=== PATIENT | male | born 1930 | race Caucasian/White ===

== ENCOUNTER 2017-09-18 18:04 | Inpatient (IN) | payer OTHER ==
[~2017-09-18] VITALS: Ht 182.9 cm; Wt 73.0 kg
[~2017-09-18 18:04] MED LIST: CYAN10004 PO; LEVO100T84 PO; LISI-725 PO; LOVA40TA3 PO; METF500T PO
[2017-09-18] MEDS ORDERED: VANCOMYCIN IV 1,000 MG in SODIUM CHLORIDE 0.9% 250ML 250 ML IV STA (18:12)
[2017-09-18] MEDS ORDERED: VANCOMYCIN CONSULT ACTIVE PRN ×2 (18:15→23:00)
--- NOTE | 2017-09-18 18:18 | EMERGENCY ROOM VISIT NOTE ---
History Report prepared by Jg: Lauryn Hollingsworth Under the Supervision of: Dr. Alberto Jarrell M.D. 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 As per EMS, the patient has dementia, is being treated for a UTI, and was placed on Bactrim today. HPI limited due to the patient's dementia. 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 See HPI for pertinent positives and negatives. Past Medical & Surgical Medical Problems: (1) No significant past medical history No significant past medical history Family History Patient reports no known family medical history. Social History Smoking Status: Unknown if Ever Smoked Smokeless Tobacco Use: Unknown Marital Status: Occupation Status: retired Current/Historical Medications Scheduled Divalproex Sodium (Divalproex Sodium), 125 MG PO TID Docusate Sodium (Stool Softener), 100 MG PO BID Furosemide (Lasix), 20 MG PO DAILY Levothyroxine Sodium (Synthroid), 100 MCG PO QAM Mirtazapine (Mirtazapine), 7.5 MG PO QPM Potassium Ext Rel (Klor-Con), 10 MEQ PO DAILY Quetiapine Fumarate (Seroquel), 250 MG PO HS Sulfamethoxazole-Trimethoprim (Bactrim 400MG/80MG), 1 TAB PO BID Trazodone HCl (Trazodone HCl), 150 MG PO HS Physical Exam Vital Signs Date Time Temp Pulse Resp B/P (MAP) Pulse Ox O2 Delivery O2 Flow Rate FiO2 09/18/17 22:00 99 18 136/69 92 Room Air 09/18/17 21:05 87 18 115/73 93 Room Air 09/18/17 19:18 68 18 96 Room Air 09/18/17 19:01 68 131/60 09/18/17 18:59 68 18 09/18/17 18:54 69 22 09/18/17 18:49 69 25 09/18/17 18:44 69 25 09/18/17 18:39 70 25 09/18/17 18:34 73 25 09/18/17 18:34 71 09/18/17 18:31 118/56 09/18/17 18:17 96 Room Air 09/18/17 18:09 36.9 89 22 125/59 96 Room Air Physical Exam GENERAL: NAD HENT: Normocephalic, atraumatic. EYES: Normal conjunctiva. Sclera non-icteric. PERRL. No anisocoria. NECK: Supple. No nuchal rigidity. FROM. RESPIRATORY: CTAB, no rhonchi, wheezing, crackles CARDIAC: RRR, no MRG ABDOMEN: Soft, NTND, BS+ MSK: No chest wall TTP, no LE edema NEURO: Moves all 4s on command. 4 out 5 strength throughout b/l UE/LEs SKIN: No rash or jaundice noted. 10 by 5 cm area of erythema, fluctuance, and induration. Open central area with purulent drainage. Actively draining Medical Decision & Procedures ER Provider Diagnostic Interpretation: Radiology results as stated below per my review and radiologist interpretation: CHEST ONE VIEW PORTABLE HISTORY: 86 years-old Male Evaluate Fever/Sepsis acute fever with sepsis COMPARISON: Chest radiograph 10/27/2011 TECHNIQUE: Portable AP view of the chest FINDINGS: Patient is rotated to the right. Cardiac silhouette is enlarged. Pulmonary vascular congestion with interstitial coarsening. Moderate right hemidiaphragmatic elevation with subsegmental right basilar opacities. Trace pleural effusions with fluid tracking along the minor fissure. No pneumothorax. Degenerative changes of the shoulders and spine. Remote appearing left-sided rib fractures. IMPRESSION: 1. Cardiomegaly with mild pulmonary edema and trace bilateral pleural effusions. 2. Moderate right hemidiaphragmatic elevation with subsegmental right basilar opacities favoring atelectasis. Superimposed pneumonia would be difficult to exclude. The above report was generated using voice recognition software. It may contain grammatical, syntax or spelling errors. Electronically signed by: Talat Walker M.D. 09/18/2017 7:30 PM Laboratory Results 09/18/17 18:39 Red Blood Count 4.39, Mean Corpuscular Volume 84.5, Mean Corpuscular Hemoglobin 29.4, Mean Corpuscular Hemoglobin Concent 34.8, Mean Platelet Volume 8.2, Neutrophils (%) (Auto) 77.9, Lymphocytes (%) (Auto) 10.9, Monocytes (%) (Auto) 7.7, Eosinophils (%) (Auto) 1.6, Basophils (%) (Auto) 0.2, Neutrophils # (Auto) 12.90, Lymphocytes # (Auto) 1.80, Monocytes # (Auto) 1.28, Eosinophils # (Auto) 0.27, Basophils # (Auto) 0.03 09/18/17 18:39 Test 09/18/17 18:39 09/18/17 18:44 09/18/17 19:00 White Blood Count 16.56 K/uL (4.8-10.8) Red Blood Count 4.39 M/uL (4.7-6.1) Hemoglobin 12.9 g/dL (14.0-18.0) Hematocrit 37.1 % (42-52) Mean Corpuscular Volume 84.5 fL (80-100) Mean Corpuscular Hemoglobin 29.4 pg (25-34) Mean Corpuscular Hemoglobin Concent 34.8 g/dl (32-36) Platelet Count 315 K/uL (130-400) Mean Platelet Volume 8.2 fL (7.4-10.4) Neutrophils (%) (Auto) 77.9 % Lymphocytes (%) (Auto) 10.9 % Monocytes (%) (Auto) 7.7 % Eosinophils (%) (Auto) 1.6 % Basophils (%) (Auto) 0.2 % Neutrophils # (Auto) 12.90 K/uL (1.4-6.5) Lymphocytes # (Auto) 1.80 K/uL (1.2-3.4) Monocytes # (Auto) 1.28 K/uL (0.11-0.59) Eosinophils # (Auto) 0.27 K/uL (0-0.5) Basophils # (Auto) 0.03 K/uL (0-0.2) RDW Standard Deviation 41.0 fL (36.4-46.3) RDW Coefficient of Variation 13.2 % (11.5-14.5) Immature Granulocyte % (Auto) 1.7 % Immature Granulocyte # (Auto) 0.28 K/uL (0.00-0.02) Toxic Granulation 2+ Dohle Bodies 1+ Prothrombin Time 12.6 SECONDS (9.0-12.0) Prothromb Time International Ratio 1.2 (0.9-1.1) Activated Partial Thromboplast Time 32.6 SECONDS (21.0-31.0) Partial Thromboplastin Ratio 1.3 Anion Gap 5.0 mmol/L (3-11) Est Creatinine Clear Calc Drug Dose 76.4 ml/min Estimated GFR () 91.4 Estimated GFR (Non- 78.9 BUN/Creatinine Ratio 17.4 (10-20) Lactic Acid Level 1.4 mmol/L (0.4-2.0) Calcium Level 8.8 mg/dl (8.5-10.1) Total Bilirubin 0.4 mg/dl (0.2-1) Direct Bilirubin 0.1 mg/dl (0-0.2) Aspartate Amino Transf (AST/SGOT) 42 U/L (15-37) Alanine Aminotransferase (ALT/SGPT) 52 U/L (12-78) Alkaline Phosphatase 82 U/L (45-117) Total Protein 6.1 gm/dl (6.4-8.2) Albumin 2.4 gm/dl (3.4-5.0) Venous Blood pH 7.41 (7.36-7.41) Venous Blood Partial Pressure CO2 43 mmHg (38.0-50.0) Venous Blood Partial Pressure O2 53 mmHg Venous Blood HCO3 27 mmol/L Venous Blood Oxygen Saturation 84.9 % Venous Blood Base Excess 1.7 mEq/L Urine Color DK YELLOW Urine Appearance CLEAR (CLEAR) Urine pH 5.5 (4.5-7.5) Urine Specific [place] 1.018 (1.000-1.030) Urine Protein NEG (NEG) Urine Glucose (UA) NEG (NEG) Urine Ketones TRACE (NEG) Urine Occult Blood 2+ (NEG) Urine Nitrite NEG (NEG) Urine Bilirubin NEG (NEG) Urine Urobilinogen NEG (NEG) Urine Leukocyte Esterase NEG (NEG) Urine WBC (Auto) 1-5 /hpf (0-5) Urine RBC (Auto) 10-30 /hpf (0-4) Urine Hyaline Casts (Auto) 1-5 /lpf (0-5) Urine Epithelial Cells (Auto) >30 /lpf (0-5) Urine Bacteria (Auto) NEG (NEG) Urine Renal Epithelial Cells 0-5 /lpf (0-5) Laboratory results reviewed by me Medications Administered Medications (Trade) Dose Ordered Sig/Jannet Route Start Time Stop Time Status Last Admin Dose Admin Vancomycin HCl 1000 mg/Sodium Chloride 270 ml @ 125 mls/hr ONE STAT IV 09/18/17 18:12 09/18/17 20:21 DC 09/18/17 18:45 125 MLS/HR Procedure Incision & Drainage Indication: Abscess. Location: L upper back Verbal consent was obtained after the risks and benefits were explained, including but not limited to bleeding, scarring, infection, pain, and bone/joint /nerve damage. At this time, the risks of the procedure are less than the risks of NOT performing the procedure. A time out was taken and the correct patient and site identified. The skin was prepped with betadine and a sterile field set. The abscess cavity was manually manipulated and purulent material was expressed from multiple areas over the back. Copious irrigation was performed using normal saline. Debridement was not performed. A sterile dressing applied. A bedside US was completed prior to dressing being placed, no obvious area of drainage and only cobblestoning noted. No complications and the patient tolerated the procedure well. ECG Per My Interpretation Indication: other (wound on back) Rate (beats per minute): 71 Rhythm: normal sinus Findings: left axis deviation, other (normal intervals, no STS changes or TWI) ED Course 1805: The patient was evaluated in room B9. A complete history and physical exam was performed. 1811: Ordered Vancomycin HCL 1000 mg/Sodium Chloride 270 ml @ 125 mls/hr IV 1851: Ordered Hydrocodone Bitart/Acetaminophen 1 tab PO 2034: I performed an incision and drainage procedure at this time. 2113: Discussed the patient's case with Dr. Buchanan, [facility] Hospitalist. The patient will be evaluated for further treatment and disposition. 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 Prior records reviewed and summarized as above. Triage Nursing notes reviewed. Additional history obtained from EMS. The patient's history was concerning for swelling and redness of the skin. Differential diagnosis: Etiologies such as cellulitis, abscess, MRSA infection, DVT, necrotizing fasciitis, dermatitis, drug eruption, as well as others were entertained. Patient was seen and evaluated the bedside. Of note the patient is on hospice. There was concern about infection to his upper back. The patient does have a fairly large area of erythema with central clearing with purulent drainage. The patient has complained of some back pain. Patient was recently started on Bactrim for UTI today. Patient does have 4 out of 5 strength throughout. Patient did have blood work completed was given first dose of vancomycin. I did have discussions with the employment evaluator/case manager given the patient's hospice status and whether or not he needs to stay inpatient. Patient's blood work did show an elevated white blood cell count 16,000. Patient's other blood work is fairly unremarkable. Patient has normal kidney function. Lactate less than 2. VBG normal limits. He was started on Bactrim could continue as the patient has normal kidney function. Patient was given Keflex. Even though the patient is on hospice and the patient does not have systemic infection concerned for extensive cellulitis and abscess as if almost a coalesced area of furuncles and now large abscess/cellulitis. Given the extensive involvement of the skin with regard to the cellulitis and abscess of thought he would benefit from further inpatient follow-up and treatment. We are unable to obtain a POA which states whether not the patient would like things like IV antibiotics and/or wound care. I think he would benefit from this and further wound care. Patient was discussed with the on-call hospitalist who agreed to further evaluate and treat the patient. Medication Reconcilliation Current Medication List: was personally reviewed by me Blood Pressure Screening Patient's blood pressure: Low blood pressure Blood pressure disposition: Did not require urgent referral Consults Time Called: 2111 Consulting Physician: Dr. Buchanan [facility] Hospitalist Returned Call: 2113 Discussed the patient's case with Dr. Buchanan [facility] Hospitalist. The patient will be evaluated for further treatment and disposition. Impression Primary Impression: Cellulitis Additional Impressions: Abscess Dementia Scribe Attestation The scribe's documentation has been prepared under my direction and personally reviewed by me in its entirety. I confirm that the note above accurately reflects all work, treatment, procedures, and medical decision making performed by me. Departure Information Dispostion Being Evaluated By Hospitalist (Dr. Buchanan, [facility] Hospitalist ) Referrals No Doctor, Assigned (PCP) Patient Instructions My [facility] Problem Qualifiers Primary Impression: Cellulitis Site of cellulitis: trunk Site of cellulitis of trunk: back Qualified Codes : L03.312 - Cellulitis of back [any part except buttock] Additional Impressions: Dementia Dementia type: unspecified type Dementia behavioral disturbance: without behavioral disturbance Qualified Codes: F03.90 - Unspecified dementia without behavioral disturbance
[2017-09-18] MEDS ORDERED: HYDROCODONE/ACETAMIN 5/325MG TAB PO STA (18:52)
[2017-09-18 19:10] LABS: HEMATOCRIT 37.1 % (42-52); HEMOGLOBIN 12.9 g/dL (14.0-18.0); MEAN CELL VOLUME 84.5 fL (80-100); MEAN CORPUSCULAR HEMOGLOBIN 29.4 pg (25-34); MEAN CORPUSCULAR HGB CONC 34.8 g/dl (32-36); MEAN PLATELET VOLUME 8.2 fL (7.4-10.4); PLATELET COUNT 315 K/uL (130-400); RED CELL DISTRIBUTION WIDTH CV 13.2 % (11.5-14.5); WHITE BLOOD COUNT 16.56 K/uL (4.8-10.8)
[2017-09-18 19:18] LABS: INR 1.2 (0.9-1.1); PTT PATIENT 32.6 SECONDS (21.0-31.0)
[2017-09-18 19:30] LABS: ALBUMIN 2.4 gm/dl (3.4-5.0); CALCIUM 8.8 mg/dl (8.5-10.1); CREATININE 0.85 mg/dl (0.60-1.40); POTASSIUM 4.4 mmol/L (3.5-5.1); TOTAL PROTEIN 6.1 gm/dl (6.4-8.2)
--- NOTE | 2017-09-18 19:31 | DIAGNOSTIC IMAGING REPORT ---
CHEST ONE VIEW PORTABLE HISTORY: 86 years-old Male Evaluate Fever/Sepsis acute fever with sepsis COMPARISON: Chest radiograph 10/27/2011 TECHNIQUE: Portable AP view of the chest FINDINGS: Patient is rotated to the right. Cardiac silhouette is enlarged. Pulmonary vascular congestion with interstitial coarsening. Moderate right hemidiaphragmatic elevation with subsegmental right basilar opacities. Trace pleural effusions with fluid tracking along the minor fissure. No pneumothorax. Degenerative changes of the shoulders and spine. Remote appearing left-sided rib fractures. IMPRESSION: 1. Cardiomegaly with mild pulmonary edema and trace bilateral pleural effusions. 2. Moderate right hemidiaphragmatic elevation with subsegmental right basilar opacities favoring atelectasis. Superimposed pneumonia would be difficult to exclude. The above report was generated using voice recognition software. It may contain grammatical, syntax or spelling errors. Electronically signed by: Talat Walker M.D. 09/18/2017 7:30 PM Dictated Date/Time: 09/18/2017 7:28 PM
[2017-09-18] MEDS ORDERED: FURO-85 PO (19:49)
[2017-09-18] MEDS ORDERED: QUET1TAB9 PO (19:49)
[2017-09-18] MEDS ORDERED: DSY/150 PO (19:49)
[2017-09-18] MEDS ORDERED: MIRT1TAB27 PO (19:49)
[2017-09-18] MEDS ORDERED: DOCU100C PO (19:49)
[2017-09-18] MEDS ORDERED: POTA-639 PO (19:49)
[2017-09-18] MEDS ORDERED: DIVA1CAP5 PO (19:49)
[2017-09-18] MEDS ORDERED: LEVO100T PO (19:49)
[2017-09-18] MEDS ORDERED: SULF400T7 PO (19:49)
[2017-09-18 19:54] LABS: BASO % 0.2 %; BASO ABS # 0.03 K/uL (0-0.2); EOS % 1.6 %; EOS ABS # 0.27 K/uL (0-0.5); IG# 0.28 K/uL (0.00-0.02); LYMPH % 10.9 %; MONO % 7.7 %; MONO ABS # 1.28 K/uL (0.11-0.59); NEUT % 77.9 %
[2017-09-18] MEDS ORDERED: CEPH500C PO (20:10)
[2017-09-18] MEDS ORDERED: QUETIAPINE FUMARATE 100 MG TAB PO ONE (22:19)
[2017-09-18] MEDS ORDERED: TRAZODONE HCL 100 MG TAB PO ONE (22:19)
[2017-09-18] MEDS ORDERED: PATIENT'S ALLERGY INFO NEEDS ENTERED SCH (22:30)
[2017-09-18] MEDS: MoRPHine SULFATE 4 MG/ML 1 ML CARP\\VIAL IV PRN (22:39)
[2017-09-18] MEDS ORDERED: ALUMINUM/MAGNESIUM/SIMETH (MAALOX MAX) 30 ML UDC PO PRN (23:00)
[2017-09-18] MEDS ORDERED: PIPERACILL/TAZOBAC IV 4.5 GM in DEXTROSE 5% 100ML 100 ML IV SCH (23:00)
[2017-09-18] MEDS ORDERED: ACETAMINOPHEN 325 MG TAB PO PRN (23:00)
[2017-09-18] MEDS ORDERED: POLYETHYLENE (MIRALAX) 17 GM PACK PO PRN (23:00)
[2017-09-18] MEDS ORDERED: MAGNESIUM HYDROXIDE SUSP 30 ML UDC PO PRN (23:00)
[2017-09-18] MEDS ORDERED: ONDANSETRON INJ 2 MG/ML 2 ML VIAL IV PRN (23:00)
[2017-09-18] MEDS ORDERED: PIPERACILL/TAZOBAC CONSULT ACTIVE PRN (23:00)
--- NOTE | 2017-09-18 23:09 | History and Physical ---
History & Physical Date & Time of Service: September 18, 2017 at 23:07 Chief Complaint: Wound On Back Primary Care Physician: No Doctor, Assigned History of Present Illness Source: hospital records, EMS 86 yo M w/ pMHx of Parkinson with dementia, HTN, hypothyroidism, DM, on home hospice care, started on Bactrim today for a UTI was brought to the ED with complaints of a pain from a back wound, apparently having started a few hours prior to arrival. Patient is poor historian and there is no family at bedside. History obtained from EMS and ED staff. Review of records on [facility], [facility], and [employer] yield minimal results as to his recent health and reason for hospice care. Patient is calm at rest but in distress with movement due to pain. He is otherwise unable to provide more information or ROS secondary to dementia. Past Medical/Surgical History Medical Problems: (1) No significant past medical history Family History Patient reports no known family medical history. Unsure Social History Smoking Status: Unknown if Ever Smoked Smokeless Tobacco Use: Unknown Alcohol Use: none Drug Use: none Marital Status: Occupational Status: retired Immunizations History of Influenza Vaccine: Unknown History of Tetanus Vaccine?: Unknown History of Pneumococcal: Unknown History of Hepatitis B Vaccine: Unknown Allergies Coded Allergies: Aspirin (Verified Allergy, Unknown, swelling, 09/18/17) Home Medications Scheduled Divalproex Sodium (Divalproex Sodium), 125 MG PO TID Docusate Sodium (Stool Softener), 100 MG PO BID Furosemide (Lasix), 20 MG PO DAILY Levothyroxine Sodium (Synthroid), 100 MCG PO QAM Mirtazapine (Mirtazapine), 7.5 MG PO QPM Potassium Ext Rel (Klor-Con), 10 MEQ PO DAILY Quetiapine Fumarate (Seroquel), 250 MG PO HS Sulfamethoxazole-Trimethoprim (Bactrim 400MG/80MG), 1 TAB PO BID Trazodone HCl (Trazodone HCl), 150 MG PO HS Physical Exam Vital Signs Date Time Temp Pulse Resp B/P (MAP) Pulse Ox O2 Delivery O2 Flow Rate FiO2 09/18/17 22:40 99 18 127/88 96 Room Air 09/18/17 22:00 99 18 136/69 92 Room Air 09/18/17 21:05 87 18 115/73 93 Room Air 09/18/17 19:18 68 18 96 Room Air 09/18/17 19:01 68 131/60 09/18/17 18:59 68 18 09/18/17 18:54 69 22 09/18/17 18:49 69 25 09/18/17 18:44 69 25 09/18/17 18:39 70 25 09/18/17 18:34 73 25 09/18/17 18:34 71 09/18/17 18:31 118/56 09/18/17 18:17 96 Room Air 09/18/17 18:09 36.9 89 22 125/59 96 Room Air General Appearance: WD/WN, + mild distress, + pertinent finding (entire body is tremulous) Head: normocephalic, atraumatic Eyes: sclerae normal ENT: pharynx normal Respiratory/Chest: no respiratory distress, no accessory muscle use, + decreased breath sounds (poor inspiratory effort) Cardiovascular: regular rate, rhythm, normal peripheral pulses Abdomen/GI: normal bowel sounds, soft Extremities/Musculoskelatal: no pedal edema Neurologic/Psych: alert, + disoriented Skin: + pertinent finding (Large 10cm granulated wound with central drainage of purulent material, with surrounding erythema) Diagnostics Laboratory Results Results Past 24 Hours Test 09/18/17 18:39 09/18/17 18:44 09/18/17 19:00 Range/Units White Blood Count 16.56 4.8-10.8 K/uL Red Blood Count 4.39 4.7-6.1 M/uL Hemoglobin 12.9 14.0-18.0 g/dL Hematocrit 37.1 42-52 % Mean Corpuscular Volume 84.5 80-100 fL Mean Corpuscular Hemoglobin 29.4 25-34 pg Mean Corpuscular Hemoglobin Concent 34.8 32-36 g/dl Platelet Count 315 130-400 K/uL Mean Platelet Volume 8.2 7.4-10.4 fL Neutrophils (%) (Auto) 77.9 % Lymphocytes (%) (Auto) 10.9 % Monocytes (%) (Auto) 7.7 % Eosinophils (%) (Auto) 1.6 % Basophils (%) (Auto) 0.2 % Neutrophils # (Auto) 12.90 1.4-6.5 K/uL Lymphocytes # (Auto) 1.80 1.2-3.4 K/uL Monocytes # (Auto) 1.28 0.11-0.59 K/uL Eosinophils # (Auto) 0.27 0-0.5 K/uL Basophils # (Auto) 0.03 0-0.2 K/uL RDW Standard Deviation 41.0 36.4-46.3 fL RDW Coefficient of Variation 13.2 11.5-14.5 % Immature Granulocyte % (Auto) 1.7 % Immature Granulocyte # (Auto) 0.28 0.00-0.02 K/uL Toxic Granulation 2+ Dohle Bodies 1+ Prothrombin Time 12.6 9.0-12.0 SECONDS Prothromb Time International Ratio 1.2 0.9-1.1 Activated Partial Thromboplast Time 32.6 21.0-31.0 SECONDS Partial Thromboplastin Ratio 1.3 Sodium Level 132 136-145 mmol/L Potassium Level 4.4 3.5-5.1 mmol/L Chloride Level 99 98-107 mmol/L Carbon Dioxide Level 28 21-32 mmol/L Anion Gap 5.0 3-11 mmol/L Blood Urea Nitrogen 15 7-18 mg/dl Creatinine 0.85 0.60-1.40 mg/dl Est Creatinine Clear Calc Drug Dose 76.4 ml/min Estimated GFR () 91.4 Estimated GFR (Non- 78.9 BUN/Creatinine Ratio 17.4 10-20 Random Glucose 183 70-99 mg/dl Lactic Acid Level 1.4 0.4-2.0 mmol/L Calcium Level 8.8 8.5-10.1 mg/dl Total Bilirubin 0.4 0.2-1 mg/dl Direct Bilirubin 0.1 0-0.2 mg/dl Aspartate Amino Transf (AST/SGOT) 42 15-37 U/L Alanine Aminotransferase (ALT/SGPT) 52 12-78 U/L Alkaline Phosphatase 82 45-117 U/L Total Protein 6.1 6.4-8.2 gm/dl Albumin 2.4 3.4-5.0 gm/dl Venous Blood pH 7.41 7.36-7.41 Venous Blood Partial Pressure CO2 43 38.0-50.0 mmHg Venous Blood Partial Pressure O2 53 mmHg Venous Blood HCO3 27 mmol/L Venous Blood Oxygen Saturation 84.9 % Venous Blood Base Excess 1.7 mEq/L Urine Color DK YELLOW Urine Appearance CLEAR CLEAR Urine pH 5.5 4.5-7.5 Urine Specific [place] 1.018 1.000-1.030 Urine Protein NEG NEG Urine Glucose (UA) NEG NEG Urine Ketones TRACE NEG Urine Occult Blood 2+ NEG Urine Nitrite NEG NEG Urine Bilirubin NEG NEG Urine Urobilinogen NEG NEG Urine Leukocyte Esterase NEG NEG Urine WBC (Auto) 1-5 0-5 /hpf Urine RBC (Auto) 10-30 0-4 /hpf Urine Hyaline Casts (Auto) 1-5 0-5 /lpf Urine Epithelial Cells (Auto) >30 0-5 /lpf Urine Bacteria (Auto) NEG NEG Urine Renal Epithelial Cells 0-5 0-5 /lpf Microbiology Results 09/18/17 Blood Culture, Received Pending 09/18/17 Blood Culture, Received Pending Diagnostic Radiology CHEST ONE VIEW PORTABLE HISTORY: 86 years-old Male Evaluate Fever/Sepsis acute fever with sepsis COMPARISON: Chest radiograph 10/27/2011 TECHNIQUE: Portable AP view of the chest FINDINGS: Patient is rotated to the right. Cardiac silhouette is enlarged. Pulmonary vascular congestion with interstitial coarsening. Moderate right hemidiaphragmatic elevation with subsegmental right basilar opacities. Trace pleural effusions with fluid tracking along the minor fissure. No pneumothorax. Degenerative changes of the shoulders and spine. Remote appearing left-sided rib fractures. IMPRESSION: 1. Cardiomegaly with mild pulmonary edema and trace bilateral pleural effusions. 2. Moderate right hemidiaphragmatic elevation with subsegmental right basilar opacities favoring atelectasis. Superimposed pneumonia would be difficult to exclude. EKG Sinus rhythm with Premature atrial complexes Left axis deviation Incomplete left bundle block Abnormal ECG When compared with ECG of 27-OCT-2011 17:29, Premature atrial complexes are now Present Impression Assessment and Plan 86 yo M w/ pMHx of Parkinson with dementia, HTN, hypothyroidism, DM, on home hospice care, started on Bactrim today for a UTI was brought to the ED with complaints of a pain from a back wound, apparently having started a few hours prior to arrival. Patient is poor historian and there is no family at bedside. History obtained from EMS and ED staff. Review of records on [facility], [facility], and [employer] yield minimal results as to his recent health and reason for hospice care. Patient is calm at rest but in distress with movement due to pain. He is otherwise unable to provide more information or ROS secondary to dementia. Back abscess with cellulitis - unlikely to have started 'a few hours' prior to arrival. - Wound to be photographed in ER - Drainage sent for culture, blood cultures ordered - Empiric treatment with IV vancomycin and Zosyn - Pain: IV morphine 2mg q2h - ID and wound care consulted - Frequent dressing changed F/E/N - IVF NSS @ 75cc/hr - NPO for now, speech eval ordered Parkinson's with dementia - Continue home meds: carbidopa-levodopa, divalproex, quetiapine, trazodone Hypothyroidism - Continue levothyroxine VTE pps - Hep SC Code: DNR Of note: old records from 2015 indicate the following PO home meds: carbidopa/ levodopa 25-100mg TID, vitamin B12 1000mcg daily, furosemide 20mg daily, levothyroxine 100mcg daily, lisinopril 20mg daily, lovastatin 40mg HS, metformin 500mg daily. These have likely been discontinued/altered due to hospice status. Getting in touch with family/PCP/hospice care providers will be prudent to attain more information. Attending addendum: I have physically seen this patient, have supervised the medical residents activities, and agree with the H&P unless as otherwise noted. Assessment and Plan: Cellulitis and abscess of back-- Follow I&D cultures performed in the ED. Place on vancomycin IV and Zosyn IV per renal dosing. Morphine 2 mg IV every 2 hours as needed severe pain. Consult wound care. Consult infectious disease. Consult social service worker for assistance in determining appropriate discharge/ coordination with hospice and in dealing with wound care issues that have occurred. Place on NSS at 75 ML's per hour. N.p.o. status until assessed by speech therapy. Patient's med list will be verified, and can be administered orally once speech therapy has assessed. Resuscitation Status DNR VTE Prophylaxis Will order VTE Prophylaxis: Yes Social Service Consult Abuse/Neglect Concerns Resident Tracking Resident Involvement: Resident Care Provided Care Provided: Adult Hospital Medicine
[2017-09-19] MEDS: MoRPHine SULFATE 4 MG/ML 1 ML CARP\\VIAL IV PRN ×4 (00:24→19:40)
[2017-09-19 00:33] VITALS: BP 113/61; PULSE 98; TEMP 37; O2SAT 92; BMI 21.8
[2017-09-19] MEDS ORDERED: PIPERACILL/TAZOBAC IV 3.375 GM in D5W 100 ML IV ONE (00:45)
[2017-09-19] MEDS: SODIUM CHLORIDE 0.9% 1000ML 1,000 ML IV SCH ×2 (00:59→16:09)
[2017-09-19] MEDS: PIPERACILL/TAZOBAC IV 3.375 GM in D5W 100ML IV SCH ×3 (06:01→21:46)
[2017-09-19] MEDS: LEVOTHYROXINE 100 MCG TAB PO SCH (06:02)
[2017-09-19 06:05] LABS: HEMATOCRIT 34.3 % (42-52); MEAN CELL VOLUME 84.1 fL (80-100); MEAN CORPUSCULAR HEMOGLOBIN 29.4 pg (25-34); MEAN PLATELET VOLUME 8.3 fL (7.4-10.4); PLATELET COUNT 336 K/uL (130-400); RED CELL DISTRIBUTION WIDTH CV 13.3 % (11.5-14.5); RED CELL DISTRIBUTION WIDTH SD 40.9 fL (36.4-46.3); WHITE BLOOD COUNT 20.52 K/uL (4.8-10.8)
[2017-09-19 06:33] LABS: BASO % 0.3 %; BASO ABS # 0.06 K/uL (0-0.2); EOS % 1.4 %; EOS ABS # 0.28 K/uL (0-0.5); IG# 0.33 K/uL (0.00-0.02); LYMPH % 11.1 %; LYMPH ABS # 2.28 K/uL (1.2-3.4); MONO % 7.1 %; MONO ABS # 1.46 K/uL (0.11-0.59); NEUT % 78.5 %; NEUT ABS # 16.11 K/uL (1.4-6.5)
[2017-09-19 06:36] LABS: ALBUMIN 2.3 gm/dl (3.4-5.0); CALCIUM 8.4 mg/dl (8.5-10.1); CREATININE 0.95 mg/dl (0.60-1.40); POTASSIUM 4.2 mmol/L (3.5-5.1); TOTAL PROTEIN 5.6 gm/dl (6.4-8.2)
[2017-09-19 07:26] VITALS: BP 102/58; PULSE 86; TEMP 36.3; O2SAT 94
[2017-09-19] MEDS: VANCOMYCIN IV 1,000 MG in SODIUM CHLORIDE 0.9% 250ML 250 ML IV SCH ×2 (08:22→22:36)
[2017-09-19] MEDS: DOCUSATE SODIUM 100 MG CAP PO SCH ×2 (08:24→19:32)
[2017-09-19] MEDS: DIVALPROEX SODIUM SPRINKLE 125 MG CAP PO SCH ×3 (08:25→19:32)
[2017-09-19] MEDS: POTASSIUM CHLORIDE 10 MEQ TABCR PO SCH (08:25)
[2017-09-19] MEDS: CARBIDOPA/LEVODOPA 25/100MG TAB PO SCH ×3 (08:25→19:30)
--- NOTE | 2017-09-19 08:57 | Hospitalist Progress Note ---
Hospitalist Progress Note Date of Service September 19, 2017. (Zaynab Lan PA-C) Subjective Pt evaluation today including: conversation w/ patient, conversation w/ family , physical exam, chart review, lab review, review of studies, conversation w/ provider relations consultant (wound, infectious disease) Pain: Back abscess PO Intake: Fair Voiding: escobedo catheter in place The patient was seen and examined this morning. Pt is unable to provide any history due to his dementia, so discussion was held with his over the phone. He was seen with wound care and infectious disease at bedside this morning. notes that the back abscess initially started about 2 weeks ago and appeared as a boil, which he has a history of getting. They have [facility], and their nurses had been using hot compresses/dry dressing, no topical antibiotic for this. The wound continued to get larger with expressible pus. A wound culture was obtained 2-3 days ago, and showed MRSA, for which he was started on Bactrim PO yesterday. ROS: ROS unobtainable other than having pain with manipulation of the back wound /abscess. (Zaynab Lan PA-C) Objective Vital Signs Date Time Temp Pulse Resp B/P (MAP) Pulse Ox O2 Delivery O2 Flow Rate FiO2 09/19/17 07:26 36.3 86 20 102/58 (73) 94 Room Air 09/19/17 00:33 37.0 98 16 113/61 92 Room Air 09/18/17 23:55 100 18 115/68 95 09/18/17 22:40 99 18 127/88 96 Room Air 09/18/17 22:00 99 18 136/69 92 Room Air 09/18/17 21:05 87 18 115/73 93 Room Air 09/18/17 19:18 68 18 96 Room Air 09/18/17 19:01 68 131/60 09/18/17 18:59 68 18 09/18/17 18:54 69 22 09/18/17 18:49 69 25 09/18/17 18:44 69 25 09/18/17 18:39 70 25 09/18/17 18:34 73 25 09/18/17 18:34 71 09/18/17 18:31 118/56 09/18/17 18:17 96 Room Air 09/18/17 18:09 36.9 89 22 125/59 96 Room Air (Zaynab Lan PA-C) Physical Exam General Appearance: WD/WN, no apparent distress, + thin Eyes: PERRL, EOMI ENT: hearing grossly normal, + pertinent finding (+ white plaque on tongue and posterior pharynx) Neck: supple, no JVD Respiratory/Chest: lungs clear, no respiratory distress, no accessory muscle use Cardiovascular: regular rate, rhythm, + systolic murmur (grade II/) Abdomen: normal bowel sounds, non tender, soft, + pertinent finding (Escobedo cath in place draining clear yellow urine) Extremities: non-tender, no pedal edema, no calf tenderness Neurologic/Psychiatric: alert, + disoriented Skin: normal color, warm/dry, + pertinent finding (Back abscess) Notes: Back: large left mid back wound, edges are friable and bleeding, central abscess with fluctuance and draining purulent material, + surrounding erythema, tenderness to palpation worse near axilla. Total area = 18.5 x 9 cm, and wound is 4.5 x 10.5 cm. (Zaynab Lan PA-C) Laboratory Results Last 24 Hours Test 09/18/17 18:39 09/18/17 18:44 09/18/17 19:00 09/19/17 05:36 White Blood Count 16.56 K/uL 20.52 K/uL Red Blood Count 4.39 M/uL 4.08 M/uL Hemoglobin 12.9 g/dL 12.0 g/dL Hematocrit 37.1 % 34.3 % Mean Corpuscular Volume 84.5 fL 84.1 fL Mean Corpuscular Hemoglobin 29.4 pg 29.4 pg Mean Corpuscular Hemoglobin Concent 34.8 g/dl 35.0 g/dl Platelet Count 315 K/uL 336 K/uL Mean Platelet Volume 8.2 fL 8.3 fL Neutrophils (%) (Auto) 77.9 % 78.5 % Lymphocytes (%) (Auto) 10.9 % 11.1 % Monocytes (%) (Auto) 7.7 % 7.1 % Eosinophils (%) (Auto) 1.6 % 1.4 % Basophils (%) (Auto) 0.2 % 0.3 % Neutrophils # (Auto) 12.90 K/uL 16.11 K/uL Lymphocytes # (Auto) 1.80 K/uL 2.28 K/uL Monocytes # (Auto) 1.28 K/uL 1.46 K/uL Eosinophils # (Auto) 0.27 K/uL 0.28 K/uL Basophils # (Auto) 0.03 K/uL 0.06 K/uL RDW Standard Deviation 41.0 fL 40.9 fL RDW Coefficient of Variation 13.2 % 13.3 % Immature Granulocyte % (Auto) 1.7 % 1.6 % Immature Granulocyte # (Auto) 0.28 K/uL 0.33 K/uL Toxic Granulation 2+ Dohle Bodies 1+ Prothrombin Time 12.6 SECONDS Prothromb Time International Ratio 1.2 Activated Partial Thromboplast Time 32.6 SECONDS Partial Thromboplastin Ratio 1.3 Sodium Level 132 mmol/L 134 mmol/L Potassium Level 4.4 mmol/L 4.2 mmol/L Chloride Level 99 mmol/L 101 mmol/L Carbon Dioxide Level 28 mmol/L 25 mmol/L Anion Gap 5.0 mmol/L 8.0 mmol/L Blood Urea Nitrogen 15 mg/dl 18 mg/dl Creatinine 0.85 mg/dl 0.95 mg/dl Est Creatinine Clear Calc Drug Dose 76.4 ml/min 57.6 ml/min Estimated GFR () 91.4 83.7 Estimated GFR (Non- 78.9 72.2 BUN/Creatinine Ratio 17.4 19.2 Random Glucose 183 mg/dl 154 mg/dl Lactic Acid Level 1.4 mmol/L Calcium Level 8.8 mg/dl 8.4 mg/dl Magnesium Level 1.7 mg/dl Total Bilirubin 0.4 mg/dl 0.4 mg/dl Direct Bilirubin 0.1 mg/dl Aspartate Amino Transf (AST/SGOT) 42 U/L 33 U/L Alanine Aminotransferase (ALT/SGPT) 52 U/L 44 U/L Alkaline Phosphatase 82 U/L 77 U/L Total Protein 6.1 gm/dl 5.6 gm/dl Albumin 2.4 gm/dl 2.3 gm/dl Venous Blood pH 7.41 Venous Blood Partial Pressure CO2 43 mmHg Venous Blood Partial Pressure O2 53 mmHg Venous Blood HCO3 27 mmol/L Venous Blood Oxygen Saturation 84.9 % Venous Blood Base Excess 1.7 mEq/L Urine Color DK YELLOW Urine Appearance CLEAR Urine pH 5.5 Urine Specific [place] 1.018 Urine Protein NEG Urine Glucose (UA) NEG Urine Ketones TRACE Urine Occult Blood 2+ Urine Nitrite NEG Urine Bilirubin NEG Urine Urobilinogen NEG Urine Leukocyte Esterase NEG Urine WBC (Auto) 1-5 /hpf Urine RBC (Auto) 10-30 /hpf Urine Hyaline Casts (Auto) 1-5 /lpf Urine Epithelial Cells (Auto) >30 /lpf Urine Bacteria (Auto) NEG Urine Renal Epithelial Cells 0-5 /lpf Red Blood Cell Morphology Unremarkable Globulin 3.3 gm/dl Albumin/Globulin Ratio 0.7 (Zaynab Lan, JORDYN) Assessment and Plan 86 yo M w/ pMHx of Parkinson with dementia, HTN, hypothyroidism, DM, on home hospice care, started on Bactrim today for a UTI was brought to the ED with complaints of a pain from a back wound, apparently having started a few hours prior to arrival. Patient is poor historian and there is no family at bedside. History obtained from EMS and ED staff. Review of records on [facility], [facility], and [facility] yield minimal results as to his recent health and reason for hospice care. Patient is calm at rest but in distress with movement due to pain. He is otherwise unable to provide more information or ROS secondary to dementia. Back abscess with cellulitis - - Discussion with as per HPI - reported as started 2 weeks ago as a "boil" , treated with hot compresses/dry dressing. Culture obtained 2-3 d ago showed MRSA and was started on Bactrim PO on 09/18. Wound total area is quite large, measuring 18.5 cm x 9 cm. - General surgery consult for I&D and possible drain placement - Dr. Monk bonding machine operator today - Follow wound culture, BCx - Empiric treatment with IV vancomycin and Zosyn until culture results. - Pain: IV morphine 2mg q2h - ID and wound care consulted - appreciate recommendations. UTI - Started on cipro approximately 2 weeks ago for this, unknown as resolve. reports dysuria and increased frequency where the antibiotic course was actually extended. He was started on Bactrim for MRSA skin infection as above on 09/18. - PO abx held at this time with abx as above. - Follow UCx - Continue NSS at 75ml/hr Oral Candidiasis - Nystatin QID ordered Parkinson's with dementia - Continue home meds: carbidopa-levodopa, divalproex, quetiapine, trazodone - Speech eval in process, will allow moist pureed diet at this time considering the patients hospice status per recommendations. Hypothyroidism - Continue levothyroxine DVT ppx: subq heparin Code: DNR Disposition- from home on [facility], CM to assist with D/C planning (Zaynab Lan, JORDYN) PA Physician Supervision Note: I interviewed and examined the patient. Discussed with Zaynab Lan PAC and agree with findings and plan as documented in the note. Any exceptions or clarifications are listed here: None Patient is awake and alert but not responsive he reportedly has significant dementia associated with Parkinson's disease. He is a large left posterior chest wall abscess this be taken to the operating room for I&D. Infectious diseases supervising antibiotic which will include coverage for MRSA. He is involved prehospital with hospice care however without tension to this large abscess which is approximately at least 5 x 10 cm he will likely develop significant chest wall discomfort as this will become an open decubitus. Vital signs are stable with afebrile pulse is 86 respiration rate 20 BP 102/58 Follow postsurgical recommendations with wound care whether it needs to be packing or has a drain in place post procedure Documented By: Yandel James (Yandel James M.D.)
[2017-09-19 09:23] VITALS: Ht 182.9 cm; Wt 73.0 kg
[2017-09-19] MEDS: HEPARIN SOD 5000 UNIT/0.5 ML CARP SQ SCH ×2 (09:41→20:58)
--- NOTE | 2017-09-19 10:41 | Medical Consult ---
Consultation Date of Consultation: September 19, 2017. Attending Physician: Yandel James M.D. Reason for Consultation: Back abscess with cellulitis History of Present Illness History obtained from medical records and medical staff as patient unable to provide any history. 86-year-old male with history of Parkinson's disease, reportedly homebound on hospice care, who was admitted after being found with large abscess with cellulitis involving his back. Apparently patient has had infection for several weeks, starting with small pustule, and reportedly was culture positive for MRSA. Patient was given unknown oral antibiotic but infection progressively worsened and patient was brought to the hospital for admission. He has been started empirically on vancomycin and Zosyn. Cultures are pending. Gram stain from the drainage shows gram-positive cocci. No report of significant fever at home. Past Medical/Surgical History Medical Problems: (1) Abscess Status: Acute (2) Cellulitis Status: Acute Past Medical/Surgical History Medical Problems: Parkinson with dementia HTN hypothyroidism DM home hospice care Family History Patient reports no known family medical history. Social History Smoking Status: Unknown if Ever Smoked Smokeless Tobacco Use: Unknown Alcohol Use: none Drug Use: none Marital Status: Occupation Status: retired Allergies Coded Allergies: Aspirin (Verified Allergy, Unknown, swelling, 09/18/17) Current Inpatient Medications Current Inpatient Medications Medications (Trade) Dose Ordered Sig/Jannet Route Start Time Stop Time Status Last Admin Dose Admin Divalproex Sodium (Depakote Sprinkle Cap) 125 mg TID PO 09/19/17 08:00 10/19/17 08:59 09/19/17 08:25 125 MG Docusate Sodium (coLACE CAP) 100 mg BID PO 09/19/17 08:00 10/19/17 08:59 09/19/17 08:24 100 MG Levothyroxine Sodium (Synthroid Tab) 100 mcg DAILYBB PO 09/19/17 06:30 10/19/17 06:29 09/19/17 06:02 100 MCG Potassium Chloride (Klor-Con M10) 10 meq DAILY PO 09/19/17 08:00 10/19/17 08:59 09/19/17 08:25 10 MEQ Quetiapine Fumarate (seroQUEL TAB) 250 mg HS PO 09/19/17 21:00 10/19/17 20:59 Trazodone HCl (Desyrel Tab) 150 mg HS PO 09/19/17 21:00 10/19/17 20:59 Morphine Sulfate (MoRPHine SULFATE INJ) 2 mg Q2H PRN IV 09/18/17 22:30 10/02/17 22:29 09/19/17 10:02 2 MG Acetaminophen (Tylenol Tab) 650 mg Q4H PRN PO 09/18/17 23:00 10/18/17 22:59 09/19/17 08:26 650 MG Al Hydrox/Mg Hydrox/Simethicone (Maalox Max Susp) 15 ml Q4H PRN PO 09/18/17 23:00 10/18/17 22:59 Magnesium Hydroxide (Milk Of Magnesia Susp) 30 ml Q6H PRN PO 09/18/17 23:00 10/18/17 22:59 Polyethylene (Miralax Powder Packet) 17 gm DAILY PRN PO 09/18/17 23:00 10/18/17 22:59 Ondansetron HCl (Zofran Inj) 4 mg Q6H PRN IV 09/18/17 23:00 10/18/17 22:59 Sodium Chloride 1,000 ml @ 75 mls/hr [id number] IV 09/19/17 01:00 10/19/17 00:59 09/19/17 00:59 75 MLS/HR Vancomycin HCl 1000 mg/Sodium Chloride 270 ml @ 125 mls/hr Q15H IV 09/19/17 08:00 09/29/17 07:59 09/19/17 08:22 125 MLS/HR Miscellaneous Information (Consult) 1 ea UD PRN N/A 09/18/17 23:00 10/18/17 22:59 Miscellaneous Information (Consult) 1 ea UD PRN N/A 09/18/17 23:00 10/18/17 22:59 Piperacillin Sod/ Tazobactam Sod 3.375 gm/Dextrose 115 ml @ 28.75 mls/ hr Q8H IV 09/19/17 06:00 09/29/17 05:59 09/19/17 06:01 28.75 MLS/HR Carbidopa/Levodopa (Sinemet 25/ 100MG Tab) 1 tab TID PO 09/19/17 08:00 10/19/17 07:59 5/17/18 08:25 1 TAB Heparin Sodium (Porcine) (Heparin Sq 5000 Unit/0.5ml) 5,000 unit Q12 SQ 09/19/17 09:00 10/19/17 08:59 09/19/17 09:41 5,000 UNIT Review of Systems Not obtainable because of patient's mental status Physical Exam Date Time Temp Pulse Resp B/P (MAP) Pulse Ox O2 Delivery O2 Flow Rate FiO2 09/19/17 07:26 36.3 86 20 102/58 (73) 94 Room Air 09/19/17 00:33 37.0 98 16 113/61 92 Room Air 09/18/17 23:55 100 18 115/68 95 09/18/17 22:40 99 18 127/88 96 Room Air 09/18/17 22:00 99 18 136/69 92 Room Air 09/18/17 21:05 87 18 115/73 93 Room Air 09/18/17 19:18 68 18 96 Room Air 09/18/17 19:01 68 131/60 09/18/17 18:59 68 18 09/18/17 18:54 69 22 09/18/17 18:49 69 25 09/18/17 18:44 69 25 09/18/17 18:39 70 25 09/18/17 18:34 73 25 09/18/17 18:34 71 09/18/17 18:31 118/56 09/18/17 18:17 96 Room Air 09/18/17 18:09 36.9 89 22 125/59 96 Room Air General Appearance: WD/WN, + mild distress Head: normocephalic, atraumatic Eyes: normal inspection, EOMI, sclerae normal ENT: normal ENT inspection, pharynx normal Neck: supple, no adenopathy, thyroid normal, trachea midline Respiratory/Chest: chest non-tender, lungs clear, normal breath sounds, no respiratory distress Cardiovascular: regular rate, rhythm, no gallop, no murmur Abdomen/GI: normal bowel sounds, non tender, soft, no organomegaly Back: normal inspection, no CVA tenderness Extremities/Musculoskelatal: no calf tenderness, non-tender Neurologic/Psych: alert, + disoriented Skin: normal color, no rash, + pertinent finding (Large soft tissue infection involving back, with purulent drainage easily expressed) Lymphatic: no adenopathy Laboratory Results Date/Time Source Procedure Growth Status 09/18/17 18:39 Blood Blood Culture Pending Received 09/18/17 18:39 Blood Blood Culture Pending Received 09/19/17 09:50 Urine , Clean Catch Urine Culture Pending Received 09/18/17 23:35 Drainage - Surface Back, Left Upper Quadrant Gram Stain - Final Resulted 09/18/17 23:35 Drainage - Surface Back, Left Upper Quadrant Wound Culture Pending Resulted Last 24 Hours Test 09/18/17 18:39 09/18/17 18:44 09/18/17 19:00 09/19/17 05:36 White Blood Count 16.56 K/uL 20.52 K/uL Red Blood Count 4.39 M/uL 4.08 M/uL Hemoglobin 12.9 g/dL 12.0 g/dL Hematocrit 37.1 % 34.3 % Mean Corpuscular Volume 84.5 fL 84.1 fL Mean Corpuscular Hemoglobin 29.4 pg 29.4 pg Mean Corpuscular Hemoglobin Concent 34.8 g/dl 35.0 g/dl Platelet Count 315 K/uL 336 K/uL Mean Platelet Volume 8.2 fL 8.3 fL Neutrophils (%) (Auto) 77.9 % 78.5 % Lymphocytes (%) (Auto) 10.9 % 11.1 % Monocytes (%) (Auto) 7.7 % 7.1 % Eosinophils (%) (Auto) 1.6 % 1.4 % Basophils (%) (Auto) 0.2 % 0.3 % Neutrophils # (Auto) 12.90 K/uL 16.11 K/uL Lymphocytes # (Auto) 1.80 K/uL 2.28 K/uL Monocytes # (Auto) 1.28 K/uL 1.46 K/uL Eosinophils # (Auto) 0.27 K/uL 0.28 K/uL Basophils # (Auto) 0.03 K/uL 0.06 K/uL RDW Standard Deviation 41.0 fL 40.9 fL RDW Coefficient of Variation 13.2 % 13.3 % Immature Granulocyte % (Auto) 1.7 % 1.6 % Immature Granulocyte # (Auto) 0.28 K/uL 0.33 K/uL Toxic Granulation 2+ Dohle Bodies 1+ Prothrombin Time 12.6 SECONDS Prothromb Time International Ratio 1.2 Activated Partial Thromboplast Time 32.6 SECONDS Partial Thromboplastin Ratio 1.3 Sodium Level 132 mmol/L 134 mmol/L Potassium Level 4.4 mmol/L 4.2 mmol/L Chloride Level 99 mmol/L 101 mmol/L Carbon Dioxide Level 28 mmol/L 25 mmol/L Anion Gap 5.0 mmol/L 8.0 mmol/L Blood Urea Nitrogen 15 mg/dl 18 mg/dl Creatinine 0.85 mg/dl 0.95 mg/dl Est Creatinine Clear Calc Drug Dose 76.4 ml/min 57.6 ml/min Estimated GFR () 91.4 83.7 Estimated GFR (Non- 78.9 72.2 BUN/Creatinine Ratio 17.4 19.2 Random Glucose 183 mg/dl 154 mg/dl Lactic Acid Level 1.4 mmol/L Calcium Level 8.8 mg/dl 8.4 mg/dl Magnesium Level 1.7 mg/dl Total Bilirubin 0.4 mg/dl 0.4 mg/dl Direct Bilirubin 0.1 mg/dl Aspartate Amino Transf (AST/SGOT) 42 U/L 33 U/L Alanine Aminotransferase (ALT/SGPT) 52 U/L 44 U/L Alkaline Phosphatase 82 U/L 77 U/L Total Protein 6.1 gm/dl 5.6 gm/dl Albumin 2.4 gm/dl 2.3 gm/dl Venous Blood pH 7.41 Venous Blood Partial Pressure CO2 43 mmHg Venous Blood Partial Pressure O2 53 mmHg Venous Blood HCO3 27 mmol/L Venous Blood Oxygen Saturation 84.9 % Venous Blood Base Excess 1.7 mEq/L Urine Color DK YELLOW Urine Appearance CLEAR Urine pH 5.5 Urine Specific [place] 1.018 Urine Protein NEG Urine Glucose (UA) NEG Urine Ketones TRACE Urine Occult Blood 2+ Urine Nitrite NEG Urine Bilirubin NEG Urine Urobilinogen NEG Urine Leukocyte Esterase NEG Urine WBC (Auto) 1-5 /hpf Urine RBC (Auto) 10-30 /hpf Urine Hyaline Casts (Auto) 1-5 /lpf Urine Epithelial Cells (Auto) >30 /lpf Urine Bacteria (Auto) NEG Urine Renal Epithelial Cells 0-5 /lpf Red Blood Cell Morphology Unremarkable Globulin 3.3 gm/dl Albumin/Globulin Ratio 0.7 Patient Name: DOMITILA ESQUIVEL Unit Number: [id number] Dictated: 09/18/171927 Transcribed: 09/18/171927 B Printed Date/Time: [~ rep prt dt]/[~ rep prt tm] [~ rep ct labl] - [~ rep ct ivnm] [facility] [address] Radiology Department [place], [place] [id number] Dictated: 09/18/171927 Transcribed: 09/18/171927 JRB Printed Date/Time: [~ rep prt dt]/[~ rep prt tm] [~ rep ct labl] - [~ rep ct ivnm] [~ rep ct add3]] CHEST ONE VIEW PORTABLE HISTORY: 86 years-old Male Evaluate Fever/Sepsis acute fever with sepsis COMPARISON: Chest radiograph 10/27/2011 TECHNIQUE: Portable AP view of the chest FINDINGS: Patient is rotated to the right. Cardiac silhouette is enlarged. Pulmonary vascular congestion with interstitial coarsening. Moderate right hemidiaphragmatic elevation with subsegmental right basilar opacities. Trace pleural effusions with fluid tracking along the minor fissure. No pneumothorax. Degenerative changes of the shoulders and spine. Remote appearing left-sided rib fractures. IMPRESSION: 1. Cardiomegaly with mild pulmonary edema and trace bilateral pleural effusions. 2. Moderate right hemidiaphragmatic elevation with subsegmental right basilar opacities favoring atelectasis. Superimposed pneumonia would be difficult to exclude. The above report was generated using voice recognition software. It may contain grammatical, syntax or spelling errors. Electronically signed by: Talat Walker M.D. 09/18/2017 7:30 PM Dictated Date/Time: 09/18/2017 7:28 PM The status of this report is Signed. Draft = Not yet reviewed or approved by Radiologist. Signed = Reviewed and approved by Radiologist. <AttendingPhy></AttendingPhy> <FamilyPhy>No Doctor, Assigned</FamilyPhy> < PrimaryPhy>No Doctor, Assigned</PrimaryPhy> <UnitNumber>[id number]</UnitNumber> <VisitNumber>[id number]</VisitNumber> <PatientName>DOMITILA ESQUIVEL</PatientName> < DateOfBirth>1930</DateOfBirth> <Location>[facility]</Location> <ServiceDate></ServiceDate> <MNE>ESINDI</MNE> <OrderingPhy>Alberto Jarrell M.D.</ OrderingPhy> <OrderingPhyMNE>f rep ord dr vizcaino</OrderingPhyMNE> <DictatingPhyMNE> f rep dict dr vizcaino</DictatingPhyMNE> <CCListMNE>f rep ct mne</CCListMNE> < AdmittingPhyMNE>f pt admit dr vizcaino</AdmittingPhyMNE> <AttendingPhyMNE>f pt attend dr vizcaino</AttendingPhyMNE> <ConsultingPhyMNE>f pt consult dr vizcaino</ConsultingPhyMNE> <FamilyPhyMNE>f pt fam dr vizcaino</FamilyPhyMNE> <OtherPhyMNE>f pt other dr vizcaino</OtherPhyMNE> < PrimaryPhyMNE>f pt prim care dr vizcaino</PrimaryPhyMNE> <ReferringPhyMNE>f pt referring dr vizcaino</ReferringPhyMNE> Assessment & Plan 86-year-old male with what appears to be large abscess with cellulitis of his back, suspect this is most associated given prior history. Current coverage with vancomycin and Zosyn appropriate pending further cultures results. As discussed, surgical intervention will likely be necessary. Will follow.
--- NOTE | 2017-09-19 13:01 | Medical Consult ---
Consultation Date of Consultation: September 19, 2017. Attending Physician: Yandel James M.D. History of Present Illness 86 y/o with h/o Parkinson with dementia, HTN, hypothyroidism, DM, on home hospice care admitted last night for back abscess, cellulitis. He is not able to offer history. From the chart it appears this may be MRSA having been cultured two days ago as an outpatient and started on Bactrim. Past Medical/Surgical History Medical Problems: Parkinson with dementia HTN hypothyroidism DM home hospice care Family History Patient reports no known family medical history. Social History Smoking Status: Unknown if Ever Smoked Smokeless Tobacco Use: Unknown Alcohol Use: none Drug Use: none Marital Status: Occupation Status: retired Allergies Coded Allergies: Aspirin (Verified Allergy, Unknown, swelling, 09/18/17) Current Inpatient Medications Current Inpatient Medications Medications (Trade) Dose Ordered Sig/Jannet Route Start Time Stop Time Status Last Admin Dose Admin Divalproex Sodium (Depakote Sprinkle Cap) 125 mg TID PO 09/19/17 08:00 10/19/17 08:59 09/19/17 08:25 125 MG Docusate Sodium (coLACE CAP) 100 mg BID PO 09/19/17 08:00 10/19/17 08:59 09/19/17 08:24 100 MG Levothyroxine Sodium (Synthroid Tab) 100 mcg DAILYBB PO 09/19/17 06:30 10/19/17 06:29 09/19/17 06:02 100 MCG Potassium Chloride (Klor-Con M10) 10 meq DAILY PO 09/19/17 08:00 10/19/17 08:59 09/19/17 08:25 10 MEQ Quetiapine Fumarate (seroQUEL TAB) 250 mg HS PO 09/19/17 21:00 10/19/17 20:59 Trazodone HCl (Desyrel Tab) 150 mg HS PO 09/19/17 21:00 10/19/17 20:59 Morphine Sulfate (MoRPHine SULFATE INJ) 2 mg Q2H PRN IV 09/18/17 22:30 10/02/17 22:29 09/19/17 10:02 2 MG Acetaminophen (Tylenol Tab) 650 mg Q4H PRN PO 09/18/17 23:00 10/18/17 22:59 09/19/17 08:26 650 MG Al Hydrox/Mg Hydrox/Simethicone (Maalox Max Susp) 15 ml Q4H PRN PO 09/18/17 23:00 10/18/17 22:59 Magnesium Hydroxide (Milk Of Magnesia Susp) 30 ml Q6H PRN PO 09/18/17 23:00 10/18/17 22:59 Polyethylene (Miralax Powder Packet) 17 gm DAILY PRN PO 09/18/17 23:00 10/18/17 22:59 Ondansetron HCl (Zofran Inj) 4 mg Q6H PRN IV 09/18/17 23:00 10/18/17 22:59 Sodium Chloride 1,000 ml @ 75 mls/hr [id number] IV 09/19/17 01:00 10/19/17 00:59 09/19/17 00:59 75 MLS/HR Vancomycin HCl 1000 mg/Sodium Chloride 270 ml @ 125 mls/hr Q15H IV 09/19/17 08:00 09/29/17 07:59 09/19/17 08:22 125 MLS/HR Miscellaneous Information (Consult) 1 ea UD PRN N/A 09/18/17 23:00 10/18/17 22:59 Miscellaneous Information (Consult) 1 ea UD PRN N/A 09/18/17 23:00 10/18/17 22:59 Piperacillin Sod/ Tazobactam Sod 3.375 gm/Dextrose 115 ml @ 28.75 mls/ hr Q8H IV 09/19/17 06:00 09/29/17 05:59 09/19/17 06:01 28.75 MLS/HR Carbidopa/Levodopa (Sinemet 25/ 100MG Tab) 1 tab TID PO 09/19/17 08:00 10/19/17 07:59 09/19/17 08:25 1 TAB Heparin Sodium (Porcine) (Heparin Sq 5000 Unit/0.5ml) 5,000 unit Q12 SQ 09/19/17 09:00 10/19/17 08:59 09/19/17 09:41 5,000 UNIT Nystatin (Mycostatin Susp) 5 ml QID PO 09/19/17 17:00 09/29/17 16:59 UNV Review of Systems not obtainable Physical Exam Date Time Temp Pulse Resp B/P (MAP) Pulse Ox O2 Delivery O2 Flow Rate FiO2 09/19/17 10:48 Room Air 09/19/17 07:26 36.3 86 20 102/58 (73) 94 Room Air 09/19/17 00:33 37.0 98 16 113/61 92 Room Air 09/18/17 23:55 100 18 115/68 95 09/18/17 22:40 99 18 127/88 96 Room Air 09/18/17 22:00 99 18 136/69 92 Room Air 09/18/17 21:05 87 18 115/73 93 Room Air 09/18/17 19:18 68 18 96 Room Air 09/18/17 19:01 68 131/60 09/18/17 18:59 68 18 09/18/17 18:54 69 22 09/18/17 18:49 69 25 09/18/17 18:44 69 25 09/18/17 18:39 70 25 09/18/17 18:34 73 25 09/18/17 18:34 71 09/18/17 18:31 118/56 09/18/17 18:17 96 Room Air 09/18/17 18:09 36.9 89 22 125/59 96 Room Air General Appearance: no apparent distress Respiratory/Chest: lungs clear Cardiovascular: regular rate, rhythm Back: + pertinent finding (12 cm carbunclt left scapular area, erythematous, fluctuant) Neurologic/Psych: alert (not oriented to time or place) Laboratory Results Last 24 Hours Test 09/18/17 18:39 09/18/17 18:44 09/18/17 19:00 09/19/17 05:36 White Blood Count 16.56 K/uL 20.52 K/uL Red Blood Count 4.39 M/uL 4.08 M/uL Hemoglobin 12.9 g/dL 12.0 g/dL Hematocrit 37.1 % 34.3 % Mean Corpuscular Volume 84.5 fL 84.1 fL Mean Corpuscular Hemoglobin 29.4 pg 29.4 pg Mean Corpuscular Hemoglobin Concent 34.8 g/dl 35.0 g/dl Platelet Count 315 K/uL 336 K/uL Mean Platelet Volume 8.2 fL 8.3 fL Neutrophils (%) (Auto) 77.9 % 78.5 % Lymphocytes (%) (Auto) 10.9 % 11.1 % Monocytes (%) (Auto) 7.7 % 7.1 % Eosinophils (%) (Auto) 1.6 % 1.4 % Basophils (%) (Auto) 0.2 % 0.3 % Neutrophils # (Auto) 12.90 K/uL 16.11 K/uL Lymphocytes # (Auto) 1.80 K/uL 2.28 K/uL Monocytes # (Auto) 1.28 K/uL 1.46 K/uL Eosinophils # (Auto) 0.27 K/uL 0.28 K/uL Basophils # (Auto) 0.03 K/uL 0.06 K/uL RDW Standard Deviation 41.0 fL 40.9 fL RDW Coefficient of Variation 13.2 % 13.3 % Immature Granulocyte % (Auto) 1.7 % 1.6 % Immature Granulocyte # (Auto) 0.28 K/uL 0.33 K/uL Toxic Granulation 2+ Dohle Bodies 1+ Prothrombin Time 12.6 SECONDS Prothromb Time International Ratio 1.2 Activated Partial Thromboplast Time 32.6 SECONDS Partial Thromboplastin Ratio 1.3 Sodium Level 132 mmol/L 134 mmol/L Potassium Level 4.4 mmol/L 4.2 mmol/L Chloride Level 99 mmol/L 101 mmol/L Carbon Dioxide Level 28 mmol/L 25 mmol/L Anion Gap 5.0 mmol/L 8.0 mmol/L Blood Urea Nitrogen 15 mg/dl 18 mg/dl Creatinine 0.85 mg/dl 0.95 mg/dl Est Creatinine Clear Calc Drug Dose 76.4 ml/min 57.6 ml/min Estimated GFR () 91.4 83.7 Estimated GFR (Non- 78.9 72.2 BUN/Creatinine Ratio 17.4 19.2 Random Glucose 183 mg/dl 154 mg/dl Lactic Acid Level 1.4 mmol/L Calcium Level 8.8 mg/dl 8.4 mg/dl Magnesium Level 1.7 mg/dl Total Bilirubin 0.4 mg/dl 0.4 mg/dl Direct Bilirubin 0.1 mg/dl Aspartate Amino Transf (AST/SGOT) 42 U/L 33 U/L Alanine Aminotransferase (ALT/SGPT) 52 U/L 44 U/L Alkaline Phosphatase 82 U/L 77 U/L Total Protein 6.1 gm/dl 5.6 gm/dl Albumin 2.4 gm/dl 2.3 gm/dl Venous Blood pH 7.41 Venous Blood Partial Pressure CO2 43 mmHg Venous Blood Partial Pressure O2 53 mmHg Venous Blood HCO3 27 mmol/L Venous Blood Oxygen Saturation 84.9 % Venous Blood Base Excess 1.7 mEq/L Urine Color DK YELLOW Urine Appearance CLEAR Urine pH 5.5 Urine Specific [place] 1.018 Urine Protein NEG Urine Glucose (UA) NEG Urine Ketones TRACE Urine Occult Blood 2+ Urine Nitrite NEG Urine Bilirubin NEG Urine Urobilinogen NEG Urine Leukocyte Esterase NEG Urine WBC (Auto) 1-5 /hpf Urine RBC (Auto) 10-30 /hpf Urine Hyaline Casts (Auto) 1-5 /lpf Urine Epithelial Cells (Auto) >30 /lpf Urine Bacteria (Auto) NEG Urine Renal Epithelial Cells 0-5 /lpf Red Blood Cell Morphology Unremarkable Globulin 3.3 gm/dl Albumin/Globulin Ratio 0.7 Assessment & Plan back abscess/carbuncle, potentially MRSA Would recommend I&D in OR with sedation. We could potentially do this today but I am not able to reach his to discuss this or for consent at this time.
[2017-09-19] MEDS ORDERED: FENTANYL CITRATE INJ 50 MCG/1 ML 2 ML VIAL ONE (13:54)
--- NOTE | 2017-09-19 14:09 | History & Physical Bridge Note ---
H&P Re-Evaluation Bridge Note: I have examined the patient, reviewed the History & Physical and in the interval since the performance of the History & Physical I have noted the following changes of clinical significance: No changes noted at bedside discussed procedure with her i and and packing abscess mid back pt marked she signed consent
[2017-09-19] MEDS ORDERED: ONDANSETRON INJ 2 MG/ML 2 ML VIAL IV PRN (14:30)
[2017-09-19] MEDS ORDERED: EpHEDrine SULFATE INJ 50 MG/ML AMP IV PRN (14:30)
[2017-09-19] MEDS ORDERED: ATROPINE SULFATE 0.1 MG/ML 5ML SYR IV PRN (14:30)
[2017-09-19] MEDS ORDERED: EpHEDrine SULFATE 50MG/5ML SYR ONE (14:47)
[2017-09-19] MEDS ORDERED: PROPOFOL IV EMULSION 10 MG/ML 20 ML VIAL ONE (14:47)
[2017-09-19] MEDS ORDERED: LIDOCAINE HCL 2% 2 ML VIAL (20MG/ML) ONE (14:47)
--- NOTE | 2017-09-19 14:57 | [facility] Post Operative Brief Note ---
Immediate Operative Summary Operative Date September 19, 2017. Pre-Operative Diagnosis cellulitis and abcess of back Post-Operative Diagnosis cellulitis and abcess of back multiple sinus tract 10x 6cm Procedure(s) Performed debridment and excision 10cmx6 cm multiple sinustract abscess and packing Surgeon Dr. Monk [employer] Sales Consultant Surgeon(s) Bryce LEIVA Estimated Blood Loss 20cc Findings See Below [id number] multiple infected sinus tracts Specimens Micro- #1: Back abcess drainage-culture and sensitivity, anaerobic, aerobic Drains 1 inch packing plain 1 bottle Anesthesia Type General
[2017-09-19] MEDS: FENTANYL CITRATE INJ 50 MCG/1 ML 2 ML VIAL IV PRN ×2 (15:14→15:20)
--- NOTE | 2017-09-19 15:41 | Anesthesiology Progress Note ---
Anesthesia Post Op Note Date & Time September 19, 2017 at 15:40 Vital Signs Pain Intensity: 0 Vital Signs Past 12 Hours Date Time Temp Pulse Resp B/P (MAP) Pulse Ox O2 Delivery O2 Flow Rate FiO2 09/19/17 15:35 36.4 80 14 125/53 95 Nasal Cannula 3 09/19/17 15:25 78 16 111/55 98 Oxymask 4 09/19/17 15:15 78 20 128/52 96 Oxymask 10 09/19/17 15:05 36.6 76 20 110/58 99 Oxymask 10 09/19/17 10:48 Room Air 09/19/17 07:26 36.3 86 20 102/58 (73) 94 Room Air Notes Mental Status: alert / awake / arousable, participated in evaluation Pt Amnestic to Procedure: Yes Nausea / Vomiting: adequately controlled Pain: adequately controlled Airway Patency, RR, SpO2: stable & adequate BP & HR: stable & adequate Hydration State: stable & adequate Anesthetic Complications: no major complications apparent
[2017-09-19 16:00] VITALS: BP 144/75; PULSE 84; TEMP 36.4; O2SAT 93; O2SAT 94
[2017-09-19] MEDS: NYSTATIN SUSP 500,000 U/5 ML UDC PO SCH ×2 (16:54→19:35)
[2017-09-19] MEDS: TRAZODONE HCL 100 MG TAB PO SCH (19:30)
[2017-09-19] MEDS: QUETIAPINE FUMARATE 100 MG TAB PO SCH (19:31)
--- NOTE | 2017-09-19 20:10 | OPERATIVE REPORT ---
DATE OF OPERATION: 09/19/2017 SURGEON: Donte Monk MD GUEST ADVISOR: Bryce Shelton PA-C. PREOPERATIVE DIAGNOSES: Abscess in the back extending to the left chest area approximately 10 x 6 cm. Multiple sinus tracts draining. POSTOPERATIVE DIAGNOSES: Abscess in the back extending to the left chest area approximately 10 x 6 cm. Multiple sinus tracts draining. Deep abscess going down to the chest wall in a linear fashion from the back to the left chest at approximately the 9th intercostal space. PROCEDURE: Debridement of the multiple sinus tracts and infection, cultures and packing. SUMMARY: The patient was brought into the operating room theater under general anesthesia. He was placed in the right lateral position. The dressing was taken off the abscess, which showed a multiple sinus tracts extending approximately 10 cm x 6 cm from the back extending onto the left chest area at approximately the 9th intercostal space. At this point, the area was prepped with Betadine solution and properly draped. We elected to use the electrocautery to completely excise this multiple sinus tracts, which were quite necrotic and the oozing quite a bit of purulence. We went onto normal tissue where we excised it completely electrocautery and went down. This was going down to the latissimus muscle. We were able to take that off where we found a good viable tissue circumferentially deep and around. The area was then checked for hemostasis and appeared satisfactory. The cultures have been taken. We then packed this with a 1-inch plain packing 1 bottle, packed the wound and then used some 2-0 Prolene to hold the packing intact. Dressing was applied. The procedure was tolerated well by the patient. Estimated blood loss approximately 20 mL. The patient was taken to recovery room in good condition. I attest to the content of the Intraoperative Record and any orders documented therein. Any exception s are noted below.
[2017-09-19 21:00] VITALS: O2SAT 97
[2017-09-19 23:49] VITALS: BP 136/79; PULSE 68; TEMP 36.8; O2SAT 99
[2017-09-20] MEDS: SODIUM CHLORIDE 0.9% 1000ML 1,000 ML IV SCH ×2 (03:47→19:15)
[2017-09-20] MEDS: PIPERACILL/TAZOBAC IV 3.375 GM in D5W 100ML IV SCH ×3 (06:00→21:43)
[2017-09-20] MEDS: LEVOTHYROXINE 100 MCG TAB PO SCH (06:06)
[2017-09-20] MEDS ORDERED: VANCOMYCIN TROUGH ONE (07:30)
[2017-09-20 07:32] VITALS: BP 107/57; PULSE 65; TEMP 36.6; O2SAT 94
[2017-09-20 07:41] LABS: BASO % 0.3 %; BASO ABS # 0.03 K/uL (0-0.2); EOS % 5.6 %; EOS ABS # 0.58 K/uL (0-0.5); HEMATOCRIT 31.9 % (42-52); HEMOGLOBIN 10.7 g/dL (14.0-18.0); LYMPH % 18.6 %; LYMPH ABS # 1.92 K/uL (1.2-3.4); MEAN CELL VOLUME 85.1 fL (80-100); MEAN CORPUSCULAR HEMOGLOBIN 28.5 pg (25-34); MEAN CORPUSCULAR HGB CONC 33.5 g/dl (32-36); MEAN PLATELET VOLUME 8.1 fL (7.4-10.4); MONO % 9.5 %; MONO ABS # 0.98 K/uL (0.11-0.59); NEUT % 64.1 %; NEUT ABS # 6.61 K/uL (1.4-6.5); PLATELET COUNT 321 K/uL (130-400); RED CELL DISTRIBUTION WIDTH CV 13.5 % (11.5-14.5); WHITE BLOOD COUNT 10.32 K/uL (4.8-10.8)
--- NOTE | 2017-09-20 07:57 | Anesthesiology Progress Note ---
Anesthesia Post Op Note Date & Time September 20, 2017 at 07:56 Vital Signs Pain Intensity: 0.0 Vital Signs Past 12 Hours Date Time Temp Pulse Resp B/P (MAP) Pulse Ox O2 Delivery O2 Flow Rate FiO2 09/20/17 07:32 36.6 65 20 107/57 (74) 94 Room Air 09/20/17 00:12 Nasal Cannula 1.0 09/19/17 23:49 36.8 68 18 136/79 (98) 99 Nasal Cannula 1.0 09/19/17 21:00 97 Nasal Cannula 2.0 Notes Mental Status: participated in evaluation Pt Amnestic to Procedure: Yes Nausea / Vomiting: adequately controlled Pain: adequately controlled Airway Patency, RR, SpO2: stable & adequate BP & HR: stable & adequate Hydration State: stable & adequate Anesthetic Complications: no major complications apparent
[2017-09-20 08:06] LABS: CREATININE 0.75 mg/dl (0.60-1.40)
--- NOTE | 2017-09-20 08:07 | Progress Note ---
Subjective Date of Service: September 20, 2017. Subjective pt is more awake and alert today, is at bedside and updated, wound vac will be placed pt offers no complaints Problem List Medical Problems: (1) Abscess Status: Acute (2) Cellulitis Status: Acute Review of Systems Constitutional: + weakness, + fatigue, No fever, No chills Respiratory: No cough Cardiac: + chest pain (left posterior at site of abscess), No orthopnea, No PND , No edema Male : No dysuria, No urinary frequency Objective Vital Signs Date Time Temp Pulse Resp B/P (MAP) Pulse Ox O2 Delivery O2 Flow Rate FiO2 09/20/17 07:32 36.6 65 20 107/57 (74) 94 Room Air 09/20/17 00:12 Nasal Cannula 1.0 09/19/17 23:49 36.8 68 18 136/79 (98) 99 Nasal Cannula 1.0 09/19/17 21:00 97 Nasal Cannula 2.0 09/19/17 16:00 36.4 84 18 144/75 (98) 94 Nasal Cannula 3.0 09/19/17 16:00 93 Nasal Cannula 3.0 09/19/17 15:45 80 16 100/59 95 Nasal Cannula 3 09/19/17 15:35 36.4 80 14 125/53 95 Nasal Cannula 3 09/19/17 15:25 78 16 111/55 98 Oxymask 4 09/19/17 15:15 78 20 128/52 96 Oxymask 10 09/19/17 15:05 36.6 76 20 110/58 99 Oxymask 10 09/19/17 10:48 Room Air Physical Exam General Appearance: WD/WN, + mild distress, + thin Eyes: normal inspection, sclerae normal Respiratory/Chest: lungs clear, normal breath sounds Cardiovascular: regular rate, rhythm, no murmur Abdomen: normal bowel sounds, non tender, soft Extremities: no pedal edema, no calf tenderness Neurologic/Psychiatric: alert, + disoriented Laboratory Results Last 24 Hours Test 09/20/17 07:25 White Blood Count 10.32 K/uL Red Blood Count 3.75 M/uL Hemoglobin 10.7 g/dL Hematocrit 31.9 % Mean Corpuscular Volume 85.1 fL Mean Corpuscular Hemoglobin 28.5 pg Mean Corpuscular Hemoglobin Concent 33.5 g/dl Platelet Count 321 K/uL Mean Platelet Volume 8.1 fL Neutrophils (%) (Auto) 64.1 % Lymphocytes (%) (Auto) 18.6 % Monocytes (%) (Auto) 9.5 % Eosinophils (%) (Auto) 5.6 % Basophils (%) (Auto) 0.3 % Neutrophils # (Auto) 6.61 K/uL Lymphocytes # (Auto) 1.92 K/uL Monocytes # (Auto) 0.98 K/uL Eosinophils # (Auto) 0.58 K/uL Basophils # (Auto) 0.03 K/uL RDW Standard Deviation 42.0 fL RDW Coefficient of Variation 13.5 % Immature Granulocyte % (Auto) 1.9 % Immature Granulocyte # (Auto) 0.20 K/uL Assessment and Plan 86 yo M w/ pMHx of Parkinson with dementia, HTN, hypothyroidism, DM, on home hospice care, developed a rapidly expansive left posterior rib cage wound, this wound was a rapidily progressive abscess and not a matter of any neglect Back abscess with cellulitis - Culture obtained showed MRSA and was started on Bactrim PO on 09/18. Wound total area is quite large, measuring 18.5 cm x 9 cm. - General surgery I&D - Dr. Monk 09/19 - Empiric treatment with IV vancomycin and Zosyn pending culture results. - Pain: IV morphine 2mg q2h - ID and wound care consulted - appreciate recommendations. UTI- Started on cipro approximately 2 weeks ago for this, - Continue NSS at 75ml/hr Oral Candidiasis- Nystatin QID ordered Parkinson's with dementia- Continue: carbidopa-levodopa, divalproex, quetiapine , trazodone - Speech eval in process, pureed diet Hypothyroidism levothyroxine DVT ppx: subq heparin Code: DNR
[2017-09-20] MEDS: NYSTATIN SUSP 500,000 U/5 ML UDC PO SCH ×4 (08:20→20:11)
[2017-09-20] MEDS: CARBIDOPA/LEVODOPA 25/100MG TAB PO SCH ×3 (08:20→20:11)
[2017-09-20] MEDS: DOCUSATE SODIUM 100 MG CAP PO SCH ×2 (08:20→20:10)
[2017-09-20] MEDS: POTASSIUM CHLORIDE 10 MEQ TABCR PO SCH (08:20)
[2017-09-20] MEDS: DIVALPROEX SODIUM SPRINKLE 125 MG CAP PO SCH ×3 (08:20→20:10)
[2017-09-20] MEDS: HEPARIN SOD 5000 UNIT/0.5 ML CARP SQ SCH ×2 (08:24→20:13)
[2017-09-20] MEDS: MoRPHine SULFATE 4 MG/ML 1 ML CARP\\VIAL IV PRN ×4 (08:38→21:43)
--- NOTE | 2017-09-20 09:14 | Surgery Progress Note ---
Surgery Progress Note Date of Service September 20, 2017. Subjective Post OP Day: 1 no complaints, had breakfast Objective Vital Signs: Date Time Temp Pulse Resp B/P (MAP) Pulse Ox O2 Delivery O2 Flow Rate FiO2 09/20/17 07:32 36.6 65 20 107/57 (74) 94 Room Air 09/20/17 00:12 Nasal Cannula 1.0 09/19/17 23:49 36.8 68 18 136/79 (98) 99 Nasal Cannula 1.0 09/19/17 21:00 97 Nasal Cannula 2.0 09/19/17 16:00 36.4 84 18 144/75 (98) 94 Nasal Cannula 3.0 09/19/17 16:00 93 Nasal Cannula 3.0 09/19/17 15:45 80 16 100/59 95 Nasal Cannula 3 09/19/17 15:35 36.4 80 14 125/53 95 Nasal Cannula 3 09/19/17 15:25 78 16 111/55 98 Oxymask 4 09/19/17 15:15 78 20 128/52 96 Oxymask 10 09/19/17 15:05 36.6 76 20 110/58 99 Oxymask 10 09/19/17 10:48 Room Air Incision(s): findings (packing intact, expected drainage) Laboratory Results: Results Past 24 Hours Test 09/20/17 07:25 Range/Units White Blood Count 10.32 4.8-10.8 K/uL Red Blood Count 3.75 4.7-6.1 M/uL Hemoglobin 10.7 14.0-18.0 g/dL Hematocrit 31.9 42-52 % Mean Corpuscular Volume 85.1 80-100 fL Mean Corpuscular Hemoglobin 28.5 25-34 pg Mean Corpuscular Hemoglobin Concent 33.5 32-36 g/dl Platelet Count 321 130-400 K/uL Mean Platelet Volume 8.1 7.4-10.4 fL Neutrophils (%) (Auto) 64.1 % Lymphocytes (%) (Auto) 18.6 % Monocytes (%) (Auto) 9.5 % Eosinophils (%) (Auto) 5.6 % Basophils (%) (Auto) 0.3 % Neutrophils # (Auto) 6.61 1.4-6.5 K/uL Lymphocytes # (Auto) 1.92 1.2-3.4 K/uL Monocytes # (Auto) 0.98 0.11-0.59 K/uL Eosinophils # (Auto) 0.58 0-0.5 K/uL Basophils # (Auto) 0.03 0-0.2 K/uL RDW Standard Deviation 42.0 36.4-46.3 fL RDW Coefficient of Variation 13.5 11.5-14.5 % Immature Granulocyte % (Auto) 1.9 % Immature Granulocyte # (Auto) 0.20 0.00-0.02 K/uL Creatinine 0.75 0.60-1.40 mg/dl Est Creatinine Clear Calc Drug Dose 73.0 ml/min Estimated GFR () 96.3 Estimated GFR (Non- 83.1 Vancomycin Level Trough 13.4 SEE COMMENT mcg/ml Microbiology Results 09/19/17 Urine Culture, Received Pending Assessment & Plan s/p debridement back abscess left packing in place, packing and sutures can be removed for wound vac placement seen with Dr. Monk
[2017-09-20] MEDS: VANCOMYCIN IV 1,000 MG in SODIUM CHLORIDE 0.9% 250ML 250 ML IV SCH ×2 (10:04→21:44)
--- NOTE | 2017-09-20 11:01 | Pharmacy Progress Note ---
Pharmacy Abx Dose Short Note Date of Service September 20, 2017. Assessment & Plan Assessment 86 year old male receiving vancomycin for treatment of skin infection on back Day # 3 of antimicrobial therapy. Plan Vancomycin * Random level of 13.4 mcg/mL is subtherapeutic with history of MRSA. This was drawn ~9 hours after the dose at 2300. Even though this is not a true trough it is reasonable to believe that the trough level is not therapeutic. Increase empirically to every 12 hours (~30% increase). Patient will most likely require higher dose but not comfortable increasing to every 10 hours currently as this would be a 50% increase which is extremely aggressive in the setting of a level that is a random. * Change to 1000 mg IV every 12 hours * Goal trough level for cellulitis with history of MRSA per notes : 15 to 20 mcg /mL * Trough ordered for: 09/21/17 in the AM. This is prior to the third dose so will not represent steady state. However, I think that this is important to obtain this level to ensure proper titration upwards on this dosing with S aureus isolated from cultures today. Pharmacy will continue to follow and will adjust dose/frequency as necessary. Thank you.
[2017-09-20 15:35] VITALS: BP 105/57; PULSE 61; TEMP 36.4; O2SAT 90
--- NOTE | 2017-09-20 19:55 | Infectious Disease Progress Nt ---
Progress Note Date of Service September 20, 2017. Subjective Pt evaluation today including: physical exam, chart review, lab review, review of studies, conversation w/ multi site leasing consultant, review of inpatient medication list Patient appears comfortable this morning. No acute events overnight. Remains afebrile. MRSA screen positive, culture from back growing Staph aureus. All Other Systems: Reviewed and Negative Medications Current Inpatient Medications Medications (Trade) Dose Ordered Sig/Jannet Route Start Time Stop Time Status Last Admin Dose Admin Divalproex Sodium (Depakote Sprinkle Cap) 125 mg TID PO 09/19/17 08:00 10/19/17 08:59 09/20/17 13:38 125 MG Docusate Sodium (coLACE CAP) 100 mg BID PO 09/19/17 08:00 10/19/17 08:59 09/20/17 08:20 100 MG Levothyroxine Sodium (Synthroid Tab) 100 mcg DAILYBB PO 09/19/17 06:30 10/19/17 06:29 09/20/17 06:06 100 MCG Potassium Chloride (Klor-Con M10) 10 meq DAILY PO 09/19/17 08:00 10/19/17 08:59 09/20/17 08:20 10 MEQ Quetiapine Fumarate (seroQUEL TAB) 250 mg HS PO 09/19/17 21:00 10/19/17 20:59 09/19/17 19:31 250 MG Trazodone HCl (Desyrel Tab) 150 mg HS PO 09/19/17 21:00 10/19/17 20:59 09/19/17 19:30 150 MG Morphine Sulfate (MoRPHine SULFATE INJ) 2 mg Q2H PRN IV 09/18/17 22:30 10/02/17 22:29 09/20/17 19:23 2 MG Acetaminophen (Tylenol Tab) 650 mg Q4H PRN PO 09/18/17 23:00 10/18/17 22:59 09/19/17 08:26 650 MG Al Hydrox/Mg Hydrox/Simethicone (Maalox Max Susp) 15 ml Q4H PRN PO 09/18/17 23:00 10/18/17 22:59 Magnesium Hydroxide (Milk Of Magnesia Susp) 30 ml Q6H PRN PO 09/18/17 23:00 10/18/17 22:59 Polyethylene (Miralax Powder Packet) 17 gm DAILY PRN PO 09/18/17 23:00 10/18/17 22:59 Ondansetron HCl (Zofran Inj) 4 mg Q6H PRN IV 09/18/17 23:00 10/18/17 22:59 Sodium Chloride 1,000 ml @ 75 mls/hr [id number] IV 09/19/17 01:00 10/19/17 00:59 09/20/17 19:15 75 MLS/HR Miscellaneous Information (Consult) 1 ea UD PRN N/A 09/18/17 23:00 10/18/17 22:59 Miscellaneous Information (Consult) 1 ea UD PRN N/A 09/18/17 23:00 10/18/17 22:59 Piperacillin Sod/ Tazobactam Sod 3.375 gm/Dextrose 115 ml @ 28.75 mls/ hr Q8H IV 09/19/17 06:00 09/29/17 05:59 09/20/17 13:38 28.75 MLS/HR Carbidopa/Levodopa (Sinemet 25/ 100MG Tab) 1 tab TID PO 09/19/17 08:00 10/19/17 07:59 09/20/17 13:38 1 TAB Heparin Sodium (Porcine) (Heparin Sq 5000 Unit/0.5ml) 5,000 unit Q12 SQ 09/19/17 09:00 10/19/17 08:59 09/20/17 08:24 5,000 UNIT Nystatin (Mycostatin Susp) 5 ml QID PO 09/19/17 17:00 09/29/17 16:59 09/20/17 17:16 5 ML Vancomycin HCl 1000 mg/Sodium Chloride 270 ml @ 125 mls/hr Q12H IV 09/20/17 10:00 09/28/17 23:59 09/20/17 10:04 125 MLS/HR Objective Vital Signs Date Time Temp Pulse Resp B/P (MAP) Pulse Ox O2 Delivery O2 Flow Rate FiO2 09/20/17 15:35 36.4 61 18 105/57 (73) 90 Room Air 09/20/17 10:11 Room Air 09/20/17 07:32 36.6 65 20 107/57 (74) 94 Room Air 09/20/17 00:12 Nasal Cannula 1.0 09/19/17 23:49 36.8 68 18 136/79 (98) 99 Nasal Cannula 1.0 09/19/17 21:00 97 Nasal Cannula 2.0 Physical Exam General Appearance: WD/WN, no apparent distress Eyes: normal inspection, EOMI, sclerae normal ENT: normal ENT inspection, pharynx normal Neck: supple, no adenopathy, thyroid normal, trachea midline Respiratory/Chest: chest non-tender, lungs clear, normal breath sounds, no respiratory distress Cardiovascular: regular rate, rhythm, no gallop, no murmur Abdomen: normal bowel sounds, non tender, soft, no organomegaly Extremities: non-tender, no calf tenderness Neurologic/Psychiatric: alert, + disoriented Skin: normal color, no rash, + pertinent finding (Dressing intact on back) Lymphatic: no adenopathy Laboratory Results Last 24 Hours Test 09/20/17 07:25 White Blood Count 10.32 K/uL Red Blood Count 3.75 M/uL Hemoglobin 10.7 g/dL Hematocrit 31.9 % Mean Corpuscular Volume 85.1 fL Mean Corpuscular Hemoglobin 28.5 pg Mean Corpuscular Hemoglobin Concent 33.5 g/dl Platelet Count 321 K/uL Mean Platelet Volume 8.1 fL Neutrophils (%) (Auto) 64.1 % Lymphocytes (%) (Auto) 18.6 % Monocytes (%) (Auto) 9.5 % Eosinophils (%) (Auto) 5.6 % Basophils (%) (Auto) 0.3 % Neutrophils # (Auto) 6.61 K/uL Lymphocytes # (Auto) 1.92 K/uL Monocytes # (Auto) 0.98 K/uL Eosinophils # (Auto) 0.58 K/uL Basophils # (Auto) 0.03 K/uL RDW Standard Deviation 42.0 fL RDW Coefficient of Variation 13.5 % Immature Granulocyte % (Auto) 1.9 % Immature Granulocyte # (Auto) 0.20 K/uL Creatinine 0.75 mg/dl Est Creatinine Clear Calc Drug Dose 73.0 ml/min Estimated GFR () 96.3 Estimated GFR (Non- 83.1 Vancomycin Level Trough 13.4 mcg/ml Assessment and Plan 86-year-old male with large abscess with cellulitis of his back, s/p surgical I+ D with cultures growing Staph. Continue present Abx pending final C+S results. Length of IV antibiotics will be determined by clinical response. Will follow.
[2017-09-20] MEDS: QUETIAPINE FUMARATE 100 MG TAB PO SCH (20:12)
[2017-09-20] MEDS: TRAZODONE HCL 100 MG TAB PO SCH (20:12)
[2017-09-20 23:20] VITALS: BP 110/62; PULSE 55; TEMP 36.9; O2SAT 95
[2017-09-21] MEDS: LEVOTHYROXINE 100 MCG TAB PO SCH (06:42)
[2017-09-21] MEDS: PIPERACILL/TAZOBAC IV 3.375 GM in D5W 100ML IV SCH (06:42)
[2017-09-21] MEDS: SODIUM CHLORIDE 0.9% 1000ML 1,000 ML IV SCH ×2 (06:45→19:12)
[2017-09-21 08:00] VITALS: O2SAT 95
[2017-09-21] MEDS: MoRPHine SULFATE 4 MG/ML 1 ML CARP\\VIAL IV PRN ×3 (08:00→20:21)
[2017-09-21] MEDS: POTASSIUM CHLORIDE 10 MEQ TABCR PO SCH (08:05)
[2017-09-21] MEDS: CARBIDOPA/LEVODOPA 25/100MG TAB PO SCH ×3 (08:05→19:13)
[2017-09-21] MEDS: DOCUSATE SODIUM 100 MG CAP PO SCH ×2 (08:05→19:18)
[2017-09-21] MEDS: DIVALPROEX SODIUM SPRINKLE 125 MG CAP PO SCH ×3 (08:05→19:18)
[2017-09-21] MEDS: NYSTATIN SUSP 500,000 U/5 ML UDC PO SCH ×4 (08:06→19:13)
[2017-09-21] MEDS: HEPARIN SOD 5000 UNIT/0.5 ML CARP SQ SCH ×2 (08:12→19:16)
[2017-09-21 08:58] LABS: CREATININE 0.6 mg/dl (0.60-1.40)
[2017-09-21] MEDS ORDERED: VANCOMYCIN TROUGH ONE (09:30)
[2017-09-21] MEDS: VANCOMYCIN IV 1,000 MG in SODIUM CHLORIDE 0.9% 250ML 250 ML IV SCH ×2 (11:15→22:20)
--- NOTE | 2017-09-21 11:24 | Pharmacy Progress Note ---
Pharmacy Abx Dose Short Note Date of Service September 21, 2017. Assessment & Plan Assessment 86 year old male receiving vancomycin for treatment of skin infection Day # 4 of antimicrobial therapy. Plan Vancomycin * Trough level of 15.2 mcg/mL appears therapeutic however drawn ~10.45 hours from previous dose, not a true trough, expect trough level is lower ( supratherapeutic). This level was also drawn before steady state but expect level will be borderline therapeutic with next dose. Given MRSA growing will increase dose to q10 hours. * Change to 1000 mg IV every 10 hours * Goal trough level for 15-20 mcg/mL * Trough ordered for 09/23 @3358 Pharmacy will continue to follow and will adjust dose/frequency as necessary. Thank you.
--- NOTE | 2017-09-21 11:27 | Surgery Progress Note ---
Surgery Progress Note Date of Service September 21, 2017. Subjective Post OP Day: 2 No complaints Objective Vital Signs: Date Time Temp Pulse Resp B/P (MAP) Pulse Ox O2 Delivery O2 Flow Rate FiO2 09/21/17 00:18 Room Air 09/20/17 23:20 36.9 55 16 110/62 (78) 95 Room Air 09/20/17 19:51 Room Air 09/20/17 15:35 36.4 61 18 105/57 (73) 90 Room Air General Appearance: WD/WN, no apparent distress, + pertinent finding (sleepy) Head: normocephalic, atraumatic Neck: supple, trachea midline Respiratory/Chest: lungs clear Cardiovascular: regular rate, rhythm Abdomen: normal bowel sounds, non tender, non distended, soft Incision(s): findings (wound vac in place) Extremities: non-tender, no pedal edema Laboratory Results: Results Past 24 Hours Test 09/21/17 08:11 Range/Units Creatinine 0.60 0.60-1.40 mg/dl Est Creatinine Clear Calc Drug Dose 91.3 ml/min Estimated GFR () 105.5 Estimated GFR (Non- 91.0 Vancomycin Level Trough 15.2 SEE COMMENT mcg/ml Assessment & Plan s/p debridement of back abscess/necrosis -wound vac in place -will follow
--- NOTE | 2017-09-21 11:57 | Progress Note ---
Subjective Date of Service: September 21, 2017. Subjective pt is awake and oriented to person but not place or time, has little complaints of pain, wound cultures reveal MRSA Problem List Medical Problems: (1) Abscess Status: Acute (2) Cellulitis Status: Acute Review of Systems Constitutional: + weakness, + fatigue, No fever, No chills Respiratory: No cough, No sputum, No shortness of breath Cardiac: No chest pain, No edema Abdomen: No pain, No nausea, No vomiting Male : No dysuria, No urinary frequency Psychiatric: No depression symptoms, No anhedonism, No anxiety Objective Vital Signs Date Time Temp Pulse Resp B/P (MAP) Pulse Ox O2 Delivery O2 Flow Rate FiO2 09/21/17 00:18 Room Air 09/20/17 23:20 36.9 55 16 110/62 (78) 95 Room Air 09/20/17 19:51 Room Air 09/20/17 15:35 36.4 61 18 105/57 (73) 90 Room Air Physical Exam General Appearance: WD/WN, + mild distress, + thin Eyes: normal inspection, sclerae normal Neck: supple, no JVD Respiratory/Chest: chest non-tender, lungs clear Cardiovascular: regular rate, rhythm, no murmur Abdomen: normal bowel sounds, non tender, soft Extremities: no pedal edema, no calf tenderness Neurologic/Psychiatric: alert, + disoriented Skin: + pertinent finding (pt has wound managed by surgery) Laboratory Results Last 24 Hours Test 09/21/17 08:11 Creatinine 0.60 mg/dl Est Creatinine Clear Calc Drug Dose 91.3 ml/min Estimated GFR () 105.5 Estimated GFR (Non- 91.0 Vancomycin Level Trough 15.2 mcg/ml Assessment and Plan 86 yo M w/ pMHx of Parkinson with dementia, HTN, hypothyroidism, DM, on home hospice care, developed a rapidly expansive left posterior rib cage wound, this wound was a rapidily progressive abscess and not a matter of any neglect Back abscess with cellulitis - Culture obtained showed MRSA and was started on Bactrim PO on 09/18. Wound total area is quite large, measuring 18.5 cm x 9 cm. - General surgery I&D - Dr. Monk 09/19, due to logistical concerns with wound vac not being covered by hospice care will have wound vac and reasses on saturday, 09/23, if wound maybe managed without the pt could return home with local wound care and antibiotics chosen by ID - IV vancomycin and stop Zosyn - Pain: IV morphine 2mg q2h - ID and wound care consulted - appreciate recommendations. Oral Candidiasis- Nystatin QID ordered Parkinson's with dementia- Continue: carbidopa-levodopa, divalproex, quetiapine , trazodone, has improved after medications restarted - Speech eval pureed diet Hypothyroidism levothyroxine DVT ppx: subq heparin Code: DNR Case management has discussed the possibility of trying to have pt return home with hospice care, a wound vac would dis allow him to return to hospice
[2017-09-21 14:58] VITALS: BP 148/85; PULSE 67; TEMP 36.7; O2SAT 96
[2017-09-21] MEDS: TRAZODONE HCL 100 MG TAB PO SCH (19:12)
[2017-09-21] MEDS: QUETIAPINE FUMARATE 100 MG TAB PO SCH (19:14)
[2017-09-21] MEDS ORDERED: HALOPERIDOL LACTATE 5 MG/ML 1 ML VIAL IV STA (21:48)
[2017-09-21] MEDS ORDERED: HALOPERIDOL LACTATE 5 MG/ML 1 ML VIAL IM ONE (22:00)
[2017-09-21 23:08] VITALS: BP 152/69; PULSE 69; TEMP 36.7; O2SAT 94
[2017-09-22] MEDS: MoRPHine SULFATE 4 MG/ML 1 ML CARP\\VIAL IV PRN ×3 (00:15→21:05)
[2017-09-22] MEDS: SODIUM CHLORIDE 0.9% 1000ML 1,000 ML IV SCH ×2 (05:37→23:49)
[2017-09-22] MEDS: LEVOTHYROXINE 100 MCG TAB PO SCH (05:44)
[2017-09-22 06:28] LABS: CREATININE 0.53 mg/dl (0.60-1.40)
[2017-09-22] MEDS: DOCUSATE SODIUM 100 MG CAP PO SCH ×2 (07:19→21:07)
[2017-09-22] MEDS: NYSTATIN SUSP 500,000 U/5 ML UDC PO SCH ×4 (07:20→21:10)
[2017-09-22] MEDS: POTASSIUM CHLORIDE 10 MEQ TABCR PO SCH (07:20)
[2017-09-22] MEDS: DIVALPROEX SODIUM SPRINKLE 125 MG CAP PO SCH ×3 (07:20→21:07)
[2017-09-22] MEDS: CARBIDOPA/LEVODOPA 25/100MG TAB PO SCH ×3 (07:20→21:06)
[2017-09-22 08:05] VITALS: BP 183/80; PULSE 71; TEMP 36.6; O2SAT 93
[2017-09-22] MEDS: VANCOMYCIN IV 1,000 MG in SODIUM CHLORIDE 0.9% 250ML 250 ML IV SCH ×2 (09:00→19:14)
[2017-09-22] MEDS: HEPARIN SOD 5000 UNIT/0.5 ML CARP SQ SCH ×2 (09:01→21:14)
--- NOTE | 2017-09-22 10:08 | Surgery Progress Note ---
Surgery Progress Note Date of Service September 22, 2017. Subjective Post OP Day: 3 agitated this AM Objective Vital Signs: Date Time Temp Pulse Resp B/P (MAP) Pulse Ox O2 Delivery O2 Flow Rate FiO2 09/22/17 08:05 36.6 71 18 183/80 (114) 93 09/22/17 00:15 Room Air 09/21/17 23:08 36.7 69 20 152/69 (96) 94 Room Air 09/21/17 16:00 Room Air 09/21/17 14:58 36.7 67 20 148/85 (106) 96 General Appearance: WD/WN Head: normocephalic, atraumatic Incision(s): findings (wound vac in palce) Extremities: non-tender, no pedal edema Laboratory Results: Results Past 24 Hours Test 09/22/17 05:21 Range/Units Creatinine 0.53 0.60-1.40 mg/dl Est Creatinine Clear Calc Drug Dose 103.3 ml/min Estimated GFR () 111.0 Estimated GFR (Non- 95.8 Assessment & Plan s/p debridement of back abscess/necrosis -wound vac in place -will follow
[2017-09-22 10:49] VITALS: BP 184/82; PULSE 77
--- NOTE | 2017-09-22 10:53 | Progress Note ---
Subjective Date of Service: September 22, 2017. Subjective pt is significantly agitated this am, wanting to go to the bathroom but not producing any stool, will add stool softner Problem List Medical Problems: (1) Abscess Status: Acute (2) Cellulitis Status: Acute Review of Systems Constitutional: + weakness, + fatigue, No fever, No chills Respiratory: No cough, No shortness of breath Cardiac: No chest pain, No edema Abdomen: + constipation, No pain, No nausea, No vomiting, No diarrhea Male : No dysuria, No urinary frequency, No incontinence Psychiatric: + depression symptoms, + anxiety Objective Vital Signs Date Time Temp Pulse Resp B/P (MAP) Pulse Ox O2 Delivery O2 Flow Rate FiO2 09/22/17 10:49 77 184/82 (116) 09/22/17 08:05 36.6 71 18 183/80 (114) 93 09/22/17 08:00 Room Air 09/22/17 00:15 Room Air 09/21/17 23:08 36.7 69 20 152/69 (96) 94 Room Air 09/21/17 16:00 Room Air 09/21/17 14:58 36.7 67 20 148/85 (106) 96 Physical Exam General Appearance: WD/WN, + mild distress, + thin Neck: supple, no JVD Respiratory/Chest: chest non-tender, lungs clear, normal breath sounds Cardiovascular: regular rate, rhythm, no murmur Abdomen: normal bowel sounds, non tender, soft Extremities: no pedal edema, no calf tenderness Neurologic/Psychiatric: alert, + disoriented Laboratory Results Last 24 Hours Test 09/22/17 05:21 Creatinine 0.53 mg/dl Est Creatinine Clear Calc Drug Dose 103.3 ml/min Estimated GFR () 111.0 Estimated GFR (Non- 95.8 Assessment and Plan 86 yo M w/ pMHx of Parkinson with dementia, HTN, hypothyroidism, DM, on home hospice care, developed a rapidly expansive left posterior rib cage wound, this wound was a rapidily progressive abscess and not a matter of any neglect Back abscess with cellulitis - Culture obtained showed MRSA and was started on Bactrim PO on 09/18. Wound total area is quite large, measuring 18.5 cm x 9 cm. - General surgery I&D - Dr. Monk 09/19, due to logistical concerns with wound vac not being covered by hospice care will have wound vac and re-asses on Saturday, 09/23, if wound maybe managed without the pt could return home with local wound care and antibiotics chosen by ID - IV vancomycin and stop Zosyn - Pain: IV morphine 2mg q2h - ID and wound care consulted - appreciate recommendations. agitation will try po zyprexa, adding ativan iv Constipation? try a dose of mom Oral Candidiasis- Nystatin QID ordered Parkinson's with dementia- Continue: carbidopa-levodopa, divalproex, quetiapine , trazodone, has improved after medications restarted - Speech eval recommends pureed diet Hypothyroidisma stable with levothyroxine DVT ppx: subq heparin Code: DNR Case management has discussed the possibility of trying to have pt return home with hospice care, a wound vac would dis allow him to return to hospice
[2017-09-22] MEDS ORDERED: OLANZAPINE ZYDIS 5 MG ORALLY DIS. TAB PO ONE (11:00)
[2017-09-22] MEDS ORDERED: MAGNESIUM HYDROXIDE SUSP 30 ML UDC PO PRN (11:00)
[2017-09-22] MEDS ORDERED: SODIUM CHLORIDE 0.65% NA SOLN 45 ML (OCEAN) ONE (11:34)
[2017-09-22] MEDS ORDERED: NURSING DECISION MEDICATION ORDER SCH (11:45)
[2017-09-22] MEDS ORDERED: SODIUM CHLORIDE 0.65% NA SOLN 45 ML (OCEAN) PRN (12:00)
[2017-09-22] MEDS: HALOPERIDOL LACTATE 5 MG/ML 1 ML VIAL IM PRN ×3 (12:46→19:57)
[2017-09-22] MEDS ORDERED: NURSING VERBAL MED ORDER ONE (14:00)
[2017-09-22] MEDS ORDERED: HALOPERIDOL LACTATE 5 MG/ML 1 ML VIAL IM ONE (14:15)
[2017-09-22] MEDS: LORAZEPAM 2 MG/ML 1 ML VIAL IV PRN (14:47)
[2017-09-22] MEDS: LORAZEPAM INJ 1 MG in SYRINGE 0.5 ML IV PRN (19:14)
[2017-09-22] MEDS: TRAZODONE HCL 100 MG TAB PO SCH (21:08)
[2017-09-22] MEDS: QUETIAPINE FUMARATE 100 MG TAB PO SCH (21:08)
[2017-09-23] VITALS: BP 144/75; PULSE 92; TEMP 36.2; O2SAT 91
[2017-09-23] MEDS: MoRPHine SULFATE 4 MG/ML 1 ML CARP\\VIAL IV PRN ×2 (00:02→22:00)
[2017-09-23] MEDS: LORAZEPAM INJ 1 MG in SYRINGE 0.5 ML IV PRN (01:07)
[2017-09-23] MEDS ORDERED: VANCOMYCIN TROUGH ONE (04:30)
[2017-09-23 05:19] LABS: CREATININE 0.56 mg/dl (0.60-1.40)
[2017-09-23] MEDS: VANCOMYCIN IV 1,000 MG in SODIUM CHLORIDE 0.9% 250ML 250 ML IV SCH ×2 (05:29→15:49)
[2017-09-23] MEDS: LEVOTHYROXINE 100 MCG TAB PO SCH (05:30)
[2017-09-23] MEDS: LORAZEPAM 2 MG/ML 1 ML VIAL IV PRN ×2 (07:38→18:09)
[2017-09-23 08:00] VITALS: O2SAT 91
--- NOTE | 2017-09-23 08:55 | SURGERY PROGRESS NOTE ---
DATE: 09/23/2017 Andre is 4th postoperative day status post debridement and excision of a necrotic abscess in the left chest posterior lower back. The patient has a VAC system on and has been working fine, the nurses report no problems with that. His last vitals showed a temperature of 36.2, pulse 92, respirations 20, blood pressure 144/75. Laboratory hudson, his white count is 10.32 three days ago, there was decreasing left shift, that has not been repeated. The chemistries, creatinine 0.56. The microbiology showed a Staph aureus and Corynebacterium species. The pathology shows some necrotic tissue as expected and seen intraoperatively. At this point, from my point of view, the patient could be discharged with followup with a wound clinic and we will see him on a p.r.n. basis. Hopefully, it will close primarily, but if it granulates and there is a gap in the skin line, then we probably may need to put a skin graft on it, but we would like to avoid that if at all possible. We will see how it evolves with the wound care.
--- NOTE | 2017-09-23 10:02 | Pharmacy Progress Note ---
Pharmacy Abx Dose Short Note Date of Service September 23, 2017. Assessment & Plan Assessment 86 year old male receiving Vancomycin for treatment of MRSA in abscess Plan Vancomycin * Trough level of 18.5 mcg/mL is therapeutic given that the SEBASTIÁN for the MRSA in the abscess is 2 * Continue dose of 1000mg (13.7mg/kg) IV every 10 hours * Goal trough level for MRSA SEBASTIÁN 2 : 15 to 20 mcg/mL * No further vanco trough ordered at this juncture. Will order trough if there is a fluctuation in renal fxn or clinical status Pharmacy will continue to follow and will adjust dose/frequency as necessary. Thank you.
[2017-09-23] MEDS: NYSTATIN SUSP 500,000 U/5 ML UDC PO SCH ×4 (12:00→19:55)
[2017-09-23] MEDS: CARBIDOPA/LEVODOPA 25/100MG TAB PO SCH ×3 (12:06→19:55)
[2017-09-23] MEDS: DIVALPROEX SODIUM SPRINKLE 125 MG CAP PO SCH ×3 (12:06→19:55)
[2017-09-23] MEDS: POTASSIUM CHLORIDE 10 MEQ TABCR PO SCH (12:06)
[2017-09-23] MEDS: DOCUSATE SODIUM 100 MG CAP PO SCH ×2 (12:06→19:53)
[2017-09-23] MEDS: HEPARIN SOD 5000 UNIT/0.5 ML CARP SQ SCH ×2 (12:22→20:03)
--- NOTE | 2017-09-23 13:23 | Wound Consultation: Inpatient ---
Wound Consultation Date of Consultation: September 23, 2017. Attending Physician: Walter Lange M.D. Reason for Consultation: Postoperative wound left chest wall History of Present Illness Patient was seen today for evaluation of wound VAC therapy to a postoperative to the left chest wall following drainage of an abscess formation last week. Patient has significant dementia and is unable to provide any adequate history at this time. Patient had a wound VAC applied earlier this morning. Family History Patient reports no known family medical history. Social History Smoking Status: Unknown if Ever Smoked Smokeless Tobacco Use: Unknown Alcohol Use: none Drug Use: none Marital Status: Occupation Status: retired Allergies Coded Allergies: Aspirin (Verified Allergy, Unknown, swelling, 09/18/17) Home Medications Scheduled Divalproex Sodium (Divalproex Sodium), 125 MG PO TID Docusate Sodium (Stool Softener), 100 MG PO BID Furosemide (Lasix), 20 MG PO DAILY Levothyroxine Sodium (Synthroid), 100 MCG PO QAM Mirtazapine (Mirtazapine), 7.5 MG PO QPM Potassium Ext Rel (Klor-Con), 10 MEQ PO DAILY Quetiapine Fumarate (Seroquel), 250 MG PO HS Sulfamethoxazole-Trimethoprim (Bactrim 400MG/80MG), 1 TAB PO BID Trazodone HCl (Trazodone HCl), 150 MG PO HS Inpatient Medications Current Inpatient Medications Medications (Trade) Dose Ordered Sig/Jannet Route Start Time Stop Time Status Last Admin Dose Admin Divalproex Sodium (Depakote Sprinkle Cap) 125 mg TID PO 09/19/17 08:00 10/19/17 08:59 09/23/17 12:06 125 MG Docusate Sodium (coLACE CAP) 100 mg BID PO 09/19/17 08:00 10/19/17 08:59 09/23/17 12:06 100 MG Levothyroxine Sodium (Synthroid Tab) 100 mcg DAILYBB PO 09/19/17 06:30 10/19/17 06:29 09/23/17 05:30 100 MCG Potassium Chloride (Klor-Con M10) 10 meq DAILY PO 09/19/17 08:00 10/19/17 08:59 09/23/17 12:06 10 MEQ Quetiapine Fumarate (seroQUEL TAB) 250 mg HS PO 09/19/17 21:00 10/19/17 20:59 09/22/17 21:08 250 MG Trazodone HCl (Desyrel Tab) 150 mg HS PO 09/19/17 21:00 10/19/17 20:59 09/22/17 21:08 150 MG Morphine Sulfate (MoRPHine SULFATE INJ) 2 mg Q2H PRN IV 09/18/17 22:30 10/02/17 22:29 09/23/17 00:02 2 MG Acetaminophen (Tylenol Tab) 650 mg Q4H PRN PO 09/18/17 23:00 10/18/17 22:59 09/19/17 08:26 650 MG Al Hydrox/Mg Hydrox/Simethicone (Maalox Max Susp) 15 ml Q4H PRN PO 09/18/17 23:00 10/18/17 22:59 Polyethylene (Miralax Powder Packet) 17 gm DAILY PRN PO 09/18/17 23:00 10/18/17 22:59 09/22/17 09:00 17 GM Ondansetron HCl (Zofran Inj) 4 mg Q6H PRN IV 09/18/17 23:00 10/18/17 22:59 Sodium Chloride 1,000 ml @ 75 mls/hr [id number] IV 09/19/17 01:00 10/19/17 00:59 09/22/17 23:49 75 MLS/HR Miscellaneous Information (Consult) 1 ea UD PRN N/A 09/18/17 23:00 10/18/17 22:59 Carbidopa/Levodopa (Sinemet 25/ 100MG Tab) 1 tab TID PO 09/19/17 08:00 10/19/17 07:59 09/23/17 12:06 1 TAB Heparin Sodium (Porcine) (Heparin Sq 5000 Unit/0.5ml) 5,000 unit Q12 SQ 09/19/17 09:00 10/19/17 08:59 09/23/17 12:22 5,000 UNIT Nystatin (Mycostatin Susp) 5 ml QID PO 09/19/17 17:00 09/29/17 16:59 09/23/17 12:06 5 ML Vancomycin HCl 1000 mg/Sodium Chloride 270 ml @ 125 mls/hr Q10H IV 09/21/17 23:00 10/01/17 22:59 09/23/17 05:29 125 MLS/HR Magnesium Hydroxide (Milk Of Magnesia Susp) 30 ml Q6H PRN PO 09/22/17 11:00 10/22/17 10:59 Lorazepam (Ativan Inj) 1 mg Q4H PRN IV 09/22/17 11:00 10/22/17 10:59 09/23/17 07:38 1 MG Haloperidol Lactate (Haldol Inj) 1 mg Q1H PRN IM 09/22/17 11:00 10/22/17 10:59 09/22/17 19:57 1 MG Sodium Chloride ([place] Nasal [place]) 1 sprays PRN PRN NA 09/22/17 12:00 10/22/17 11:59 Lorazepam 1 mg/ Syringe 1 ml @ 1 mls/min Q4H PRN IV 09/22/17 19:00 10/22/17 18:59 09/23/17 01:07 1 MLS/MIN Physical Exam Date Time Temp Pulse Resp B/P (MAP) Pulse Ox O2 Delivery O2 Flow Rate FiO2 09/23/17 08:00 91 Room Air 09/23/17 00:00 Room Air 09/23/17 00:00 36.2 92 20 144/75 (98) 91 Room Air 09/22/17 16:15 Room Air General: The patient is lying in hospital bed in no apparent distress. Patient is alert and cooperative at times. HEENT: Pupils equal and reactive to light. Neck: Supple, No JVD noted Chest: CTA in all [place]. Postoperative wound is present to the left lateral chest wall measuring 12 x 4.5 x 2 cm. Excellent granulation tissue is noted throughout. There is no central slough and surrounding eschar formation noted. No palpable fluctuance or significant pain noted. No periwound erythema present. Heart: RRR without murmurs, S3, S4, thrills, rubs or heaves Neurological: Alert and follows some commands. No apparent focal deficits noted. Laboratory Results Last 24 Hours Test 09/23/17 04:48 Creatinine 0.56 mg/dl Est Creatinine Clear Calc Drug Dose 97.8 ml/min Estimated GFR () 108.6 Estimated GFR (Non- 93.7 Vancomycin Level Trough 18.5 mcg/ml Assessment & Plan Assessment: Postoperative wound left chest wall Plan: No debridement was indicated today. The site will continue to be managed with a wound VAC black foam 125 mm of negative pressure. Wound VAC should be changed 3 times weekly. There is a question regarding hospice in this patient. If hospice is elected and the patient is discharged into that process, a wound VAC would be discontinued. Aquacel Ag and gauze dressing should be applied every other day if that is the case. Patient's course will continue to be monitored during his hospitalization and to the outpatient clinic as needed.
--- NOTE | 2017-09-23 14:03 | Hospitalist Progress Note ---
Hospitalist Progress Note Date of Service September 23, 2017. (Faviola Moreno ., TIFF) Subjective Pt evaluation today including: conversation w/ patient, physical exam, chart review, lab review, review of inpatient medication list Voiding: no voiding problems Mr. Medina is sleeping, does not awaken when I call his name but does grimace and move when touched with stethoscope. He is unable to give ROS (Faviola Moreno CRNP) Medications Medications Administered Medications (Trade) Dose Ordered Sig/Jannet Route Start Time Stop Time Status Last Admin Dose Admin Vancomycin HCl 1000 mg/Sodium Chloride 270 ml @ 125 mls/hr ONE STAT IV 09/18/17 18:12 09/18/17 20:21 DC 09/18/17 18:45 125 MLS/HR Divalproex Sodium (Depakote Sprinkle Cap) 125 mg TID PO 09/19/17 08:00 10/19/17 08:59 09/23/17 12:06 125 MG Docusate Sodium (coLACE CAP) 100 mg BID PO 09/19/17 08:00 10/19/17 08:59 09/23/17 12:06 100 MG Levothyroxine Sodium (Synthroid Tab) 100 mcg DAILYBB PO 09/19/17 06:30 10/19/17 06:29 09/23/17 05:30 100 MCG Potassium Chloride (Klor-Con M10) 10 meq DAILY PO 09/19/17 08:00 10/19/17 08:59 09/23/17 12:06 10 MEQ Quetiapine Fumarate (seroQUEL TAB) 250 mg HS PO 09/19/17 21:00 10/19/17 20:59 09/22/17 21:08 250 MG Trazodone HCl (Desyrel Tab) 150 mg HS PO 09/19/17 21:00 10/19/17 20:59 09/22/17 21:08 150 MG Trazodone HCl (Desyrel Tab) 150 mg 2219 ONCE PO 09/18/17 22:19 09/19/17 00:31 DC 09/19/17 00:48 150 MG Morphine Sulfate (MoRPHine SULFATE INJ) 2 mg Q2H PRN IV 09/18/17 22:30 10/02/17 22:29 09/23/17 00:02 2 MG Quetiapine Fumarate (seroQUEL TAB) 250 mg 2219 ONCE PO 09/18/17 22:19 09/19/17 00:31 DC 09/19/17 00:49 250 MG Acetaminophen (Tylenol Tab) 650 mg Q4H PRN PO 09/18/17 23:00 10/18/17 22:59 09/19/17 08:26 650 MG Polyethylene (Miralax Powder Packet) 17 gm DAILY PRN PO 09/18/17 23:00 10/18/17 22:59 09/22/17 09:00 17 GM Sodium Chloride 1,000 ml @ 75 mls/hr [id number] IV 09/19/17 01:00 10/19/17 00:59 09/22/17 23:49 75 MLS/HR Vancomycin HCl 1000 mg/Sodium Chloride 270 ml @ 125 mls/hr Q15H IV 09/19/17 08:00 09/20/17 08:22 DC 09/19/17 22:36 125 MLS/HR Piperacillin Sod/ Tazobactam Sod 3.375 gm/Dextrose 115 ml @ 230 mls/hr NOW ONCE IV 09/19/17 00:45 09/19/17 01:14 DC 09/19/17 00:53 230 MLS/HR Piperacillin Sod/ Tazobactam Sod 3.375 gm/Dextrose 115 ml @ 28.75 mls/ hr Q8H IV 09/19/17 06:00 09/21/17 11:59 DC 09/21/17 06:42 28.75 MLS/HR Carbidopa/Levodopa (Sinemet 25/ 100MG Tab) 1 tab TID PO 09/19/17 08:00 10/19/17 07:59 09/23/17 12:06 1 TAB Heparin Sodium (Porcine) (Heparin Sq 5000 Unit/0.5ml) 5,000 unit Q12 SQ 09/19/17 09:00 10/19/17 08:59 09/23/17 12:22 5,000 UNIT Nystatin (Mycostatin Susp) 5 ml QID PO 09/19/17 17:00 09/29/17 16:59 09/23/17 12:06 5 ML Fentanyl Citrate (Fentanyl Inj) 25 mcg Q5M PRN IV 09/19/17 14:30 09/19/17 19:30 DC 09/19/17 15:20 25 MCG Vancomycin HCl 1000 mg/Sodium Chloride 270 ml @ 125 mls/hr Q12H IV 09/20/17 10:00 09/21/17 13:30 DC 09/21/17 11:15 125 MLS/HR Vancomycin HCl 1000 mg/Sodium Chloride 270 ml @ 125 mls/hr Q10H IV 09/21/17 23:00 10/01/17 22:59 09/23/17 05:29 125 MLS/HR Haloperidol Lactate (Haldol Inj) 2.5 mg ONE ONCE IM 09/21/17 22:00 09/21/17 22:04 DC 09/21/17 22:05 2.5 MG Olanzapine (Zyprexa Zydis Od Tab) 5 mg ONE ONCE PO 09/22/17 11:00 09/22/17 11:02 DC 09/22/17 11:04 5 MG Lorazepam (Ativan Inj) 1 mg Q4H PRN IV 09/22/17 11:00 10/22/17 10:59 09/23/17 07:38 1 MG Haloperidol Lactate (Haldol Inj) 1 mg Q1H PRN IM 09/22/17 11:00 10/22/17 10:59 09/22/17 19:57 1 MG Sodium Chloride ([place] Nasal [place]) 225 sprays STK-MED ONCE .ROUTE 09/22/17 11:34 09/22/17 11:35 DC 09/22/17 11:38 225 SPRAYS Lorazepam 1 mg/ Syringe 1 ml @ 1 mls/min Q4H PRN IV 09/22/17 19:00 10/22/17 18:59 09/23/17 01:07 1 MLS/MIN (Faviola Moreno, TIFF) Objective Vital Signs Date Time Temp Pulse Resp B/P (MAP) Pulse Ox O2 Delivery O2 Flow Rate FiO2 09/23/17 08:00 91 Room Air 09/23/17 00:00 Room Air 09/23/17 00:00 36.2 92 20 144/75 (98) 91 Room Air 09/22/17 16:15 Room Air (Faviola Moreno CRNP) Physical Exam Notes: General: no distress Eyes: normal inspection, PERLL Respiratory: chest non tender, clear to auscultation, normal breath sounds, no respiratory distress, no accessory muscle use Cardiac: regular rate and rhythm, no rub or gallop, no murmur, no edema, no jvd GI/: active bowel sounds, no abd pain or tenderness, soft, non distended Extremities: normal range of motion, normal strength, non tender Neuro/Psych: sleeping, disoriented per nursing Skin: normal color, dry (Faviola Moreno CRNP) Laboratory Results Last 24 Hours Test 09/23/17 04:48 Creatinine 0.56 mg/dl Est Creatinine Clear Calc Drug Dose 97.8 ml/min Estimated GFR () 108.6 Estimated GFR (Non- 93.7 Vancomycin Level Trough 18.5 mcg/ml (Faviola Moreno CRNP) Assessment and Plan 86 yo M w/ pMHx of Parkinson with dementia, HTN, hypothyroidism, DM, on home hospice care, developed a rapidly expansive left posterior rib cage wound, this wound was a rapidly progressive abscess and not a matter of any neglect Back abscess with cellulitis - Culture obtained showed MRSA and was started on Bactrim PO on 09/18. Wound total area is quite large, measuring 18.5 cm x 9 cm. - General surgery I&D - Dr. Monk 09/19 - Consulted wound care - they feel that wound vac is necessary for healing and to prevent worsening/sepsis - Consulted palliative care - concern that wound vac is not compatible with hospice. Will discuss goals of care with as well as options for discharge. - IV vancomycin, stoped Zosyn - Pain: IV morphine 2mg q2h - ID consulted - appreciate recommendations. Oral Candidiasis - Nystatin QID ordered Parkinson's with dementia, agitation - Continue: carbidopa-levodopa, divalproex, quetiapine, trazodone, has improved after medications restarted - Speech eval recommends pureed diet Hypothyroidism - continue levothyroxine DVT ppx: subq heparin Code: DNR Dispo: working with palliative and cm to decide best plan for discharge (Faviola Moreno CRNP) Supervising Note Dr. Lange I performed a history and physical examination on the patient. I reviewed above note and agree with it. I discussed plan with APC and patient. During my face to face encounter with the patient, I answered all of the patient's questions. Patient requires wound vac. Patient will likely not do well in a SNF and will likely benefit from 48-72 hours of wound vac. If patient is discharged with wound vac, hospice will be discontinued. (Walter Lange M.D.)
--- NOTE | 2017-09-23 14:37 | Infectious Disease Progress Nt ---
Progress Note Date of Service September 23, 2017. Subjective Pt evaluation today including: conversation w/ patient, physical exam, chart review, lab review, review of studies, conversation w/ senior talent management consultant, review of inpatient medication list Wound care consultation reviewed. Patient remains afebrile. Wound VAC in place. Cultures growing MRSA. Additional Comments: Not obtainable because of patient's mental status Medications Current Inpatient Medications Medications (Trade) Dose Ordered Sig/Jannet Route Start Time Stop Time Status Last Admin Dose Admin Divalproex Sodium (Depakote Sprinkle Cap) 125 mg TID PO 09/19/17 08:00 10/19/17 08:59 09/23/17 12:06 125 MG Docusate Sodium (coLACE CAP) 100 mg BID PO 09/19/17 08:00 10/19/17 08:59 09/23/17 12:06 100 MG Levothyroxine Sodium (Synthroid Tab) 100 mcg DAILYBB PO 09/19/17 06:30 10/19/17 06:29 09/23/17 05:30 100 MCG Potassium Chloride (Klor-Con M10) 10 meq DAILY PO 09/19/17 08:00 10/19/17 08:59 09/23/17 12:06 10 MEQ Quetiapine Fumarate (seroQUEL TAB) 250 mg HS PO 09/19/17 21:00 10/19/17 20:59 09/22/17 21:08 250 MG Trazodone HCl (Desyrel Tab) 150 mg HS PO 09/19/17 21:00 10/19/17 20:59 09/22/17 21:08 150 MG Morphine Sulfate (MoRPHine SULFATE INJ) 2 mg Q2H PRN IV 09/18/17 22:30 10/02/17 22:29 09/23/17 00:02 2 MG Acetaminophen (Tylenol Tab) 650 mg Q4H PRN PO 09/18/17 23:00 10/18/17 22:59 09/19/17 08:26 650 MG Al Hydrox/Mg Hydrox/Simethicone (Maalox Max Susp) 15 ml Q4H PRN PO 09/18/17 23:00 10/18/17 22:59 Polyethylene (Miralax Powder Packet) 17 gm DAILY PRN PO 09/18/17 23:00 10/18/17 22:59 09/22/17 09:00 17 GM Ondansetron HCl (Zofran Inj) 4 mg Q6H PRN IV 09/18/17 23:00 10/18/17 22:59 Sodium Chloride 1,000 ml @ 75 mls/hr [id number] IV 09/19/17 01:00 10/19/17 00:59 09/22/17 23:49 75 MLS/HR Miscellaneous Information (Consult) 1 ea UD PRN N/A 09/18/17 23:00 10/18/17 22:59 Carbidopa/Levodopa (Sinemet 25/ 100MG Tab) 1 tab TID PO 09/19/17 08:00 10/19/17 07:59 09/23/17 12:06 1 TAB Heparin Sodium (Porcine) (Heparin Sq 5000 Unit/0.5ml) 5,000 unit Q12 SQ 09/19/17 09:00 10/19/17 08:59 09/23/17 12:22 5,000 UNIT Nystatin (Mycostatin Susp) 5 ml QID PO 09/19/17 17:00 09/29/17 16:59 09/23/17 12:06 5 ML Vancomycin HCl 1000 mg/Sodium Chloride 270 ml @ 125 mls/hr Q10H IV 09/21/17 23:00 10/01/17 22:59 09/23/17 05:29 125 MLS/HR Magnesium Hydroxide (Milk Of Magnesia Susp) 30 ml Q6H PRN PO 09/22/17 11:00 10/22/17 10:59 Lorazepam (Ativan Inj) 1 mg Q4H PRN IV 09/22/17 11:00 10/22/17 10:59 09/23/17 07:38 1 MG Haloperidol Lactate (Haldol Inj) 1 mg Q1H PRN IM 09/22/17 11:00 10/22/17 10:59 09/22/17 19:57 1 MG Sodium Chloride ([place] Nasal [place]) 1 sprays PRN PRN NA 09/22/17 12:00 10/22/17 11:59 Lorazepam 1 mg/ Syringe 1 ml @ 1 mls/min Q4H PRN IV 09/22/17 19:00 10/22/17 18:59 09/23/17 01:07 1 MLS/MIN Objective Vital Signs Date Time Temp Pulse Resp B/P (MAP) Pulse Ox O2 Delivery O2 Flow Rate FiO2 09/23/17 08:00 91 Room Air 09/23/17 00:00 Room Air 09/23/17 00:00 36.2 92 20 144/75 (98) 91 Room Air 09/22/17 16:15 Room Air Physical Exam General Appearance: no apparent distress, + pertinent finding (chronically ill appearing) Eyes: normal inspection, sclerae normal ENT: normal ENT inspection, pharynx normal Neck: supple, no adenopathy, thyroid normal, trachea midline Respiratory/Chest: chest non-tender, lungs clear, normal breath sounds, no respiratory distress Cardiovascular: regular rate, rhythm, no gallop, no murmur Abdomen: normal bowel sounds, non tender, soft, no organomegaly Extremities: non-tender, no calf tenderness Neurologic/Psychiatric: alert, + disoriented Skin: normal color, no rash, + pertinent finding (wound VAC in place) Laboratory Results RUN DATE: 09/23/17 [facility] PAGE 1 RUN TIME: 841 Specimen Inquiry PATIENT: DOMITILA ESQUIVEL LOC: [place] U # : [id number] AGE/SX: 86/M ROOM: [facility] REG : 09/18/[address]: Yandel James M : 1930 BED: 1 DIS : STATUS: ADM IN TLOC: SPEC #: [id number] FAM: 09/19/17-UNK STATUS: RES REQ #: [id number] RECD: 09/19/[address] [facility] [address]: Yandel James M.D. SOURCE: ABSCESS ENTR: 09/19/17 [facility] DR: Vin Giron MD [facility]: KAMALJIT HERNANDEZ James D PA-C Pasquariello, Rick D M.D. Ramondelli, Salvatore, M.D. ORDERED: AER/SCOOTER CULTSMR Procedure Result Verified Site GRAM STAIN Final 09/20/17-728 RESULT MANY POLYS MODERATE GRAM POSITIVE COCCI OR AER/SCOOTER CULT Preliminary 09/23/17-841 Organism 1 STAPH. AUREUS MRSA QUANITY MANY SENS SENSITIVITY TO FOLLOW ANALeslye NO ANAEROBES ISOLATED. SENSITIVITY RESULT INDICATES A METHICILLIN RESISTANT STAPH. AUREUS. PHONED TO [facility] (LULA ELVIRA) ON 09/21/17 AT 0747 BY Jg Ellison. Results were verbalized back to NICOLASA. RESULTS WERE ALSO CALLED TO [facility] INFECTION CONTROL ANSWERING MACHINE ON 09/21/17 BY NICOLASA. 1. STAPH. AUREUS MRSA Target Route Dose RX AB Cost M.I.C. IQ ------ ----- ------ -- ------ -------- - ------ TRIMET/SULFA S <=0.5/ 9.5 * OXACILLIN R >2 VANCOMYCIN S 2 ERYTHROMYCIN R >4 TETRACYCLINE S <=4 CLINDAMYCIN R >4 DAPTOMYCIN S 1 RIFAMPIN S <=1 S = SENSITIVE I = INTERMEDIATE R = RESISTANT END OF REPORT Last 24 Hours Test 09/23/17 04:48 Creatinine 0.56 mg/dl Est Creatinine Clear Calc Drug Dose 97.8 ml/min Estimated GFR () 108.6 Estimated GFR (Non- 93.7 Vancomycin Level Trough 18.5 mcg/ml Assessment and Plan 86-year-old male with large abscess with cellulitis of his lateral, s/p surgical I+D with cultures growing MRSA. Length of IV antibiotics will be determined by clinical response. Will follow. chest
--- NOTE | 2017-09-23 15:11 | Palliative Care Consultation ---
Consultation Date of Consultation: September 23, 2017. Requesting Physician: Faviola Moreno NP Attending Physician: Dr James Reason for Consultation: Help determine goals of care History of Present Illness Patient is an 86-year-old male with a history of Parkinson's, dementia, hypothyroidism, hypertension, diabetes, and frequent UTIs who presented to [facility] on 09/18 with a new wound on the left back/flank. Reviewed photographs as well as op report from the I&D of the wound. Wound is not a pressure ulcer. Wound appeared abruptly, had multiple sinus tracts and an area of abscess. Patient underwent I&D and debridement on 09/19, patient now has a wound VAC in place. Wound VAC is not draining a significant amount of fluid. Patient seen and examined, patient did not arouse on exam to voice or touch. No family at bedside. Patient appears comfortable, nursing reports patient has not had any significant pain. Was able to talk to case management as well as a hospice nurse who is familiar with the patient and his . Hospice nurse reports that the is very involved in patient's care and that she also has her own medical problems, she has an EF of 15%. Having the patient is skilled facility for wound care for any length of time would be a greater stress on the as she would insist on traveling back and forth to the facility to help care for him. Hoping that if we can simplify the patient's wound care and if he would no longer need a wound VAC, he could return home under hospice care. This is likely what the patient would want and would definitely put less stress on his . Hospice nurse also reports that patient was having significant insomnia at home. Patient is now on Seroquel 250 mg nightly as well as trazodone and Depakote 125mg 3 times daily. Past Medical/Surgical History Medical History: Parkinson's, dementia, hypothyroid, hypertension, frequent UTIs, diabetes, insomnia Social History Smoking Status: Unknown if Ever Smoked Drug Use: none Marital Status: Occupation Status: retired participates in patient's care whether he is at home or an inpatient, patient has her own medical issues, she reportedly has an EF of 15%. Review of Systems Unable to obtain patient is nonverbal on exam Allergies Coded Allergies: Aspirin (Verified Allergy, Unknown, swelling, 09/18/17) Medications Current Inpatient Medications Medications (Trade) Dose Ordered Sig/Jannet Route Start Time Stop Time Status Last Admin Dose Admin Divalproex Sodium (Depakote Sprinkle Cap) 125 mg TID PO 09/19/17 08:00 10/19/17 08:59 09/23/17 12:06 125 MG Docusate Sodium (coLACE CAP) 100 mg BID PO 09/19/17 08:00 10/19/17 08:59 09/23/17 12:06 100 MG Levothyroxine Sodium (Synthroid Tab) 100 mcg DAILYBB PO 09/19/17 06:30 10/19/17 06:29 09/23/17 05:30 100 MCG Potassium Chloride (Klor-Con M10) 10 meq DAILY PO 09/19/17 08:00 10/19/17 08:59 09/23/17 12:06 10 MEQ Quetiapine Fumarate (seroQUEL TAB) 250 mg HS PO 09/19/17 21:00 10/19/17 20:59 09/22/17 21:08 250 MG Trazodone HCl (Desyrel Tab) 150 mg HS PO 09/19/17 21:00 10/19/17 20:59 09/22/17 21:08 150 MG Morphine Sulfate (MoRPHine SULFATE INJ) 2 mg Q2H PRN IV 09/18/17 22:30 10/02/17 22:29 09/23/17 00:02 2 MG Acetaminophen (Tylenol Tab) 650 mg Q4H PRN PO 09/18/17 23:00 10/18/17 22:59 09/19/17 08:26 650 MG Al Hydrox/Mg Hydrox/Simethicone (Maalox Max Susp) 15 ml Q4H PRN PO 09/18/17 23:00 10/18/17 22:59 Polyethylene (Miralax Powder Packet) 17 gm DAILY PRN PO 09/18/17 23:00 10/18/17 22:59 09/22/17 09:00 17 GM Ondansetron HCl (Zofran Inj) 4 mg Q6H PRN IV 09/18/17 23:00 10/18/17 22:59 Sodium Chloride 1,000 ml @ 75 mls/hr [id number] IV 09/19/17 01:00 10/19/17 00:59 09/22/17 23:49 75 MLS/HR Miscellaneous Information (Consult) 1 ea UD PRN N/A 09/18/17 23:00 10/18/17 22:59 Carbidopa/Levodopa (Sinemet 25/ 100MG Tab) 1 tab TID PO 09/19/17 08:00 10/19/17 07:59 09/23/17 12:06 1 TAB Heparin Sodium (Porcine) (Heparin Sq 5000 Unit/0.5ml) 5,000 unit Q12 SQ 09/19/17 09:00 10/19/17 08:59 09/23/17 12:22 5,000 UNIT Nystatin (Mycostatin Susp) 5 ml QID PO 09/19/17 17:00 09/29/17 16:59 09/23/17 12:06 5 ML Vancomycin HCl 1000 mg/Sodium Chloride 270 ml @ 125 mls/hr Q10H IV 09/21/17 23:00 10/01/17 22:59 09/23/17 05:29 125 MLS/HR Magnesium Hydroxide (Milk Of Magnesia Susp) 30 ml Q6H PRN PO 09/22/17 11:00 10/22/17 10:59 Lorazepam (Ativan Inj) 1 mg Q4H PRN IV 09/22/17 11:00 10/22/17 10:59 09/23/17 07:38 1 MG Haloperidol Lactate (Haldol Inj) 1 mg Q1H PRN IM 09/22/17 11:00 10/22/17 10:59 09/22/17 19:57 1 MG Sodium Chloride ([place] Nasal [place]) 1 sprays PRN PRN NA 09/22/17 12:00 10/22/17 11:59 Lorazepam 1 mg/ Syringe 1 ml @ 1 mls/min Q4H PRN IV 09/22/17 19:00 10/22/17 18:59 09/23/17 01:07 1 MLS/MIN Physical Exam Date Time Temp Pulse Resp B/P (MAP) Pulse Ox O2 Delivery O2 Flow Rate FiO2 09/23/17 08:00 91 Room Air 09/23/17 00:00 Room Air 09/23/17 00:00 36.2 92 20 144/75 (98) 91 Room Air 09/22/17 16:15 Room Air General Appearance: no apparent distress Eyes: + pertinent finding (Unable to assess) ENT: + pertinent finding (Unable to assess) Respiratory: lungs clear, no respiratory distress Cardiovascular: regular rate, rhythm, no edema Abdomen: non tender, soft Musculoskeletal: pertinent finding (Increased tone) Neurologic/Psychiatric: + pertinent finding (Significant dementia) Skin: + pertinent finding (Wound VAC in place) Laboratory Results Last 24 Hours Test 09/23/17 04:48 Creatinine 0.56 mg/dl Est Creatinine Clear Calc Drug Dose 97.8 ml/min Estimated GFR () 108.6 Estimated GFR (Non- 93.7 Vancomycin Level Trough 18.5 mcg/ml Assessment & Plan Palliative Performance Scale: 30 % (1) Insomnia Status: Chronic Assessment & Plan: Patient on Seroquel 250 mg nightly, trazodone nightly and Depakote 125 mg 3 times daily. Appears to be improving (2) Wound abscess Status: Acute Assessment & Plan: Patient with wound/abscess, MRSA positivestatus post I&D and debridement on 09/19. Wound VAC in place with scant drainage. Would hope to simplify wound care so patient can return home as per his 's wishes. (3) Palliative care encounter Assessment & Plan: We will continue to follow patient inpatient and try to help expedite patient's return home under hospice care as per his 's wishes. Counseling and Coordination Total time 55 minutes with greater than 50% of the time spent evaluating patient and coordinating care on the unit.
[2017-09-23] MEDS: SODIUM CHLORIDE 0.9% 1000ML 1,000 ML IV SCH (15:50)
[2017-09-23 16:00] VITALS: O2SAT 93
[2017-09-23] MEDS: QUETIAPINE FUMARATE 100 MG TAB PO SCH (19:53)
[2017-09-23] MEDS: TRAZODONE HCL 100 MG TAB PO SCH (19:56)
[2017-09-24] VITALS: BP 156/91; PULSE 88; TEMP 36.8; O2SAT 97
[2017-09-24] MEDS: VANCOMYCIN IV 1,000 MG in SODIUM CHLORIDE 0.9% 250ML 250 ML IV SCH ×3 (00:32→20:50)
[2017-09-24] MEDS: LORAZEPAM INJ 1 MG in SYRINGE 0.5 ML IV PRN ×3 (00:32→21:09)
[2017-09-24] MEDS: SODIUM CHLORIDE 0.9% 1000ML 1,000 ML IV SCH ×3 (04:51→22:11)
[2017-09-24] MEDS: LEVOTHYROXINE 100 MCG TAB PO SCH (05:22)
[2017-09-24 07:02] LABS: CREATININE 0.51 mg/dl (0.60-1.40)
[2017-09-24 07:37] VITALS: BP 153/63; PULSE 78; TEMP 36.4; O2SAT 94
[2017-09-24 08:00] VITALS: O2SAT 94
[2017-09-24] MEDS: NYSTATIN SUSP 500,000 U/5 ML UDC PO SCH ×4 (08:41→20:21)
[2017-09-24] MEDS: POTASSIUM CHLORIDE 10 MEQ TABCR PO SCH (08:41)
[2017-09-24] MEDS: CARBIDOPA/LEVODOPA 25/100MG TAB PO SCH ×3 (08:41→20:21)
[2017-09-24] MEDS: DOCUSATE SODIUM 100 MG CAP PO SCH ×2 (08:41→20:21)
[2017-09-24] MEDS: DIVALPROEX SODIUM SPRINKLE 125 MG CAP PO SCH ×3 (08:41→20:21)
[2017-09-24] MEDS: HEPARIN SOD 5000 UNIT/0.5 ML CARP SQ SCH ×2 (08:43→20:50)
[2017-09-24] MEDS ORDERED: LORAZEPAM 1 MG TAB PO PRN (14:00)
[2017-09-24 15:07] VITALS: BP 167/72; PULSE 73; TEMP 36.4; O2SAT 96
--- NOTE | 2017-09-24 15:12 | Hospitalist Progress Note ---
Hospitalist Progress Note Date of Service September 24, 2017. (Faviola Moreno ., TIFF) Subjective Pt evaluation today including: conversation w/ patient, physical exam, chart review, lab review, review of inpatient medication list Voiding: no voiding problems Patient continues to be disoriented with periods of agitation. Unable to give ROS (Faviola Moreno CRNP) Medications Medications Administered Medications (Trade) Dose Ordered Sig/Jannet Route Start Time Stop Time Status Last Admin Dose Admin Vancomycin HCl 1000 mg/Sodium Chloride 270 ml @ 125 mls/hr ONE STAT IV 09/18/17 18:12 09/18/17 20:21 DC 09/18/17 18:45 125 MLS/HR Divalproex Sodium (Depakote Sprinkle Cap) 125 mg TID PO 09/19/17 08:00 10/19/17 08:59 09/24/17 14:30 125 MG Docusate Sodium (coLACE CAP) 100 mg BID PO 09/19/17 08:00 10/19/17 08:59 09/24/17 08:41 100 MG Levothyroxine Sodium (Synthroid Tab) 100 mcg DAILYBB PO 09/19/17 06:30 10/19/17 06:29 09/24/17 05:22 100 MCG Potassium Chloride (Klor-Con M10) 10 meq DAILY PO 09/19/17 08:00 10/19/17 08:59 09/24/17 08:41 10 MEQ Quetiapine Fumarate (seroQUEL TAB) 250 mg HS PO 09/19/17 21:00 10/19/17 20:59 09/23/17 19:53 250 MG Trazodone HCl (Desyrel Tab) 150 mg HS PO 09/19/17 21:00 10/19/17 20:59 09/23/17 19:56 150 MG Trazodone HCl (Desyrel Tab) 150 mg 2219 ONCE PO 09/18/17 22:19 09/19/17 00:31 DC 09/19/17 00:48 150 MG Morphine Sulfate (MoRPHine SULFATE INJ) 2 mg Q2H PRN IV 09/18/17 22:30 10/02/17 22:29 09/23/17 22:00 2 MG Quetiapine Fumarate (seroQUEL TAB) 250 mg 2219 ONCE PO 09/18/17 22:19 09/19/17 00:31 DC 09/19/17 00:49 250 MG Acetaminophen (Tylenol Tab) 650 mg Q4H PRN PO 09/18/17 23:00 10/18/17 22:59 09/19/17 08:26 650 MG Polyethylene (Miralax Powder Packet) 17 gm DAILY PRN PO 09/18/17 23:00 10/18/17 22:59 09/22/17 09:00 17 GM Sodium Chloride 1,000 ml @ 75 mls/hr [id number] IV 09/19/17 01:00 10/19/17 00:59 09/24/17 04:51 75 MLS/HR Vancomycin HCl 1000 mg/Sodium Chloride 270 ml @ 125 mls/hr Q15H IV 09/19/17 08:00 09/20/17 08:22 DC 09/19/17 22:36 125 MLS/HR Piperacillin Sod/ Tazobactam Sod 3.375 gm/Dextrose 115 ml @ 230 mls/hr NOW ONCE IV 09/19/17 00:45 09/19/17 01:14 DC 09/19/17 00:53 230 MLS/HR Piperacillin Sod/ Tazobactam Sod 3.375 gm/Dextrose 115 ml @ 28.75 mls/ hr Q8H IV 09/19/17 06:00 09/21/17 11:59 DC 09/21/17 06:42 28.75 MLS/HR Carbidopa/Levodopa (Sinemet 25/ 100MG Tab) 1 tab TID PO 09/19/17 08:00 10/19/17 07:59 09/24/17 14:30 1 TAB Heparin Sodium (Porcine) (Heparin Sq 5000 Unit/0.5ml) 5,000 unit Q12 SQ 09/19/17 09:00 10/19/17 08:59 09/24/17 08:43 5,000 UNIT Nystatin (Mycostatin Susp) 5 ml QID PO 09/19/17 17:00 09/29/17 16:59 09/24/17 08:41 5 ML Fentanyl Citrate (Fentanyl Inj) 25 mcg Q5M PRN IV 09/19/17 14:30 09/19/17 19:30 DC 09/19/17 15:20 25 MCG Vancomycin HCl 1000 mg/Sodium Chloride 270 ml @ 125 mls/hr Q12H IV 09/20/17 10:00 09/21/17 13:30 DC 09/21/17 11:15 125 MLS/HR Vancomycin HCl 1000 mg/Sodium Chloride 270 ml @ 125 mls/hr Q10H IV 09/21/17 23:00 10/01/17 22:59 09/24/17 11:26 125 MLS/HR Haloperidol Lactate (Haldol Inj) 2.5 mg ONE ONCE IM 09/21/17 22:00 09/21/17 22:04 DC 09/21/17 22:05 2.5 MG Olanzapine (Zyprexa Zydis Od Tab) 5 mg ONE ONCE PO 09/22/17 11:00 09/22/17 11:02 DC 09/22/17 11:04 5 MG Lorazepam (Ativan Inj) 1 mg Q4H PRN IV 09/22/17 11:00 10/22/17 10:59 09/23/17 18:09 1 MG Haloperidol Lactate (Haldol Inj) 1 mg Q1H PRN IM 09/22/17 11:00 10/22/17 10:59 09/22/17 19:57 1 MG Sodium Chloride ([place] Nasal [place]) 225 sprays STK-MED ONCE .ROUTE 09/22/17 11:34 09/22/17 11:35 DC 09/22/17 11:38 225 SPRAYS Lorazepam 1 mg/ Syringe 1 ml @ 1 mls/min Q4H PRN IV 09/22/17 19:00 10/22/17 18:59 09/24/17 05:21 1 MLS/MIN Lorazepam (Ativan Tab) 1 mg Q4H PRN PO 09/24/17 14:00 10/24/17 13:59 09/24/17 13:59 1 MG (Faviola Moreno, TIFF) Objective Vital Signs Date Time Temp Pulse Resp B/P (MAP) Pulse Ox O2 Delivery O2 Flow Rate FiO2 09/24/17 08:00 94 Room Air 09/24/17 07:37 36.4 78 18 153/63 (93) 94 Room Air 09/24/17 00:30 Room Air 09/24/17 00:00 36.8 88 20 156/91 (112) 97 Room Air 09/23/17 20:00 Room Air 09/23/17 16:00 93 Room Air (Faviola Moreno CRNP) Physical Exam Notes: General: no distress Eyes: normal inspection, PERLL Respiratory: chest non tender, clear to auscultation, normal breath sounds, no respiratory distress, no accessory muscle use Cardiac: regular rate and rhythm, no rub or gallop, no murmur, no edema, no jvd GI/: active bowel sounds, no abd pain or tenderness, soft, non distended Extremities: normal range of motion, normal strength, non tender Neuro/Psych: sleeping, disoriented Skin: normal color, dry (Faviola Moreno CRNP) Laboratory Results Last 24 Hours Test 09/24/17 05:48 Creatinine 0.51 mg/dl Est Creatinine Clear Calc Drug Dose 107.4 ml/min Estimated GFR () 112.8 Estimated GFR (Non- 97.3 (Faviola Moreno CRNP) Assessment and Plan 86 yo M w/ pMHx of Parkinson with dementia, HTN, hypothyroidism, DM, on home hospice care, developed a rapidly expansive left posterior rib cage wound, this wound was a rapidly progressive abscess and not a matter of any neglect Back abscess with cellulitis - Culture obtained showed MRSA and was started on Bactrim PO on 09/18. Wound total area is quite large, measuring 18.5 cm x 9 cm. - General surgery I&D - Dr. Monk 09/19 - Consulted wound care - they feel that wound vac is necessary for healing and to prevent worsening/sepsis and recommend leaving wound vac for a few days before transitioning to a dressing more appropriate for going home on hsopice - Consulted palliative care - IV vancomycin, stopped Zosyn - Pain: IV morphine 2mg q2h - ID consulted Oral Candidiasis - Nystatin QID ordered Parkinson's with dementia, agitation - Continue: carbidopa-levodopa, divalproex, quetiapine, trazodone, has improved after medications restarted - Speech eval recommends pureed diet - prn lorazepam for agitation Hypothyroidism - continue levothyroxine DVT ppx: subq heparin Code: DNR Dispo: home with hospice when ready for dc (Faviola Moreno CRNP) Supervising Note Dr. Nazario Dsouza performed a history and physical examination on the patient. I reviewed above note and agree with it. I discussed plan with APC and patient. During my face to face encounter with the patient, I answered all of the patient's questions. Will continue wound vac for next 48-72 hours Wound appears to be healing. (Walter Lange M.D.)
[2017-09-24 16:00] VITALS: O2SAT 95
[2017-09-24 19:55] VITALS: BP 112/73; PULSE 78
[2017-09-24] MEDS: QUETIAPINE FUMARATE 100 MG TAB PO SCH (20:20)
[2017-09-24] MEDS: TRAZODONE HCL 100 MG TAB PO SCH (20:21)
--- NOTE | 2017-09-24 20:51 | Infectious Disease Progress Nt ---
Progress Note Date of Service September 24, 2017. Subjective Pt evaluation today including: conversation w/ patient, physical exam, chart review, lab review, review of studies, conversation w/ taxation consultant, review of inpatient medication list Patient appears unchanged. Having intermittent periods of agitation. Remains afebrile. Additional Comments: Not obtainable because of patient's mental status Medications Current Inpatient Medications Medications (Trade) Dose Ordered Sig/Jannet Route Start Time Stop Time Status Last Admin Dose Admin Divalproex Sodium (Depakote Sprinkle Cap) 125 mg TID PO 09/19/17 08:00 10/19/17 08:59 09/24/17 20:21 125 MG Docusate Sodium (coLACE CAP) 100 mg BID PO 09/19/17 08:00 10/19/17 08:59 09/24/17 20:21 100 MG Levothyroxine Sodium (Synthroid Tab) 100 mcg DAILYBB PO 09/19/17 06:30 10/19/17 06:29 09/24/17 05:22 100 MCG Potassium Chloride (Klor-Con M10) 10 meq DAILY PO 09/19/17 08:00 10/19/17 08:59 09/24/17 08:41 10 MEQ Quetiapine Fumarate (seroQUEL TAB) 250 mg HS PO 09/19/17 21:00 10/19/17 20:59 09/24/17 20:20 250 MG Trazodone HCl (Desyrel Tab) 150 mg HS PO 09/19/17 21:00 10/19/17 20:59 09/24/17 20:21 150 MG Morphine Sulfate (MoRPHine SULFATE INJ) 2 mg Q2H PRN IV 09/18/17 22:30 10/02/17 22:29 09/23/17 22:00 2 MG Acetaminophen (Tylenol Tab) 650 mg Q4H PRN PO 09/18/17 23:00 10/18/17 22:59 09/19/17 08:26 650 MG Al Hydrox/Mg Hydrox/Simethicone (Maalox Max Susp) 15 ml Q4H PRN PO 09/18/17 23:00 10/18/17 22:59 Polyethylene (Miralax Powder Packet) 17 gm DAILY PRN PO 09/18/17 23:00 10/18/17 22:59 09/22/17 09:00 17 GM Ondansetron HCl (Zofran Inj) 4 mg Q6H PRN IV 09/18/17 23:00 10/18/17 22:59 Sodium Chloride 1,000 ml @ 75 mls/hr [id number] IV 09/19/17 01:00 10/19/17 00:59 09/24/17 04:51 75 MLS/HR Miscellaneous Information (Consult) 1 ea UD PRN N/A 09/18/17 23:00 10/18/17 22:59 Carbidopa/Levodopa (Sinemet 25/ 100MG Tab) 1 tab TID PO 09/19/17 08:00 10/19/17 07:59 09/24/17 20:21 1 TAB Heparin Sodium (Porcine) (Heparin Sq 5000 Unit/0.5ml) 5,000 unit Q12 SQ 09/19/17 09:00 10/19/17 08:59 09/24/17 08:43 5,000 UNIT Nystatin (Mycostatin Susp) 5 ml QID PO 09/19/17 17:00 09/29/17 16:59 09/24/17 20:21 5 ML Vancomycin HCl 1000 mg/Sodium Chloride 270 ml @ 125 mls/hr Q10H IV 09/21/17 23:00 10/01/17 22:59 09/24/17 11:26 125 MLS/HR Magnesium Hydroxide (Milk Of Magnesia Susp) 30 ml Q6H PRN PO 09/22/17 11:00 10/22/17 10:59 Lorazepam (Ativan Inj) 1 mg Q4H PRN IV 09/22/17 11:00 10/22/17 10:59 09/23/17 18:09 1 MG Haloperidol Lactate (Haldol Inj) 1 mg Q1H PRN IM 09/22/17 11:00 10/22/17 10:59 09/22/17 19:57 1 MG Sodium Chloride ([place] Nasal [place]) 1 sprays PRN PRN NA 09/22/17 12:00 10/22/17 11:59 Lorazepam 1 mg/ Syringe 1 ml @ 1 mls/min Q4H PRN IV 09/22/17 19:00 10/22/17 18:59 09/24/17 05:21 1 MLS/MIN Lorazepam (Ativan Tab) 1 mg Q4H PRN PO 09/24/17 14:00 10/24/17 13:59 09/24/17 13:59 1 MG Objective Vital Signs Date Time Temp Pulse Resp B/P (MAP) Pulse Ox O2 Delivery O2 Flow Rate FiO2 09/24/17 19:55 78 112/73 (86) 09/24/17 16:00 95 Room Air 09/24/17 15:07 36.4 73 22 167/72 (103) 96 09/24/17 08:00 94 Room Air 09/24/17 07:37 36.4 78 18 153/63 (93) 94 Room Air 09/24/17 00:30 Room Air 09/24/17 00:00 36.8 88 20 156/91 (112) 97 Room Air Physical Exam General Appearance: WD/WN, no apparent distress Eyes: normal inspection, EOMI, sclerae normal ENT: normal ENT inspection, pharynx normal Neck: supple, no adenopathy, thyroid normal, trachea midline Respiratory/Chest: chest non-tender, lungs clear, normal breath sounds, no respiratory distress Cardiovascular: regular rate, rhythm, no gallop, no murmur Abdomen: normal bowel sounds, non tender, soft, no organomegaly Extremities: non-tender, no calf tenderness Neurologic/Psychiatric: alert, + disoriented Skin: normal color, no rash, + pertinent finding (Less emerald wound erythema) Lymphatic: no adenopathy Laboratory Results Last 24 Hours Test 09/24/17 05:48 Creatinine 0.51 mg/dl Est Creatinine Clear Calc Drug Dose 107.4 ml/min Estimated GFR () 112.8 Estimated GFR (Non- 97.3 Assessment and Plan (1) Insomnia Status: Chronic Patient on Seroquel 250 mg nightly, trazodone nightly and Depakote 125 mg 3 times daily. Appears to be improving (2) Wound abscess Status: Acute Patient with wound/abscess, MRSA positivestatus post I&D and debridement on . Wound VAC in place with scant drainage. Would hope to simplify wound care so patient can return home as per his 's wishes. (3) Palliative care encounter We will continue to follow patient inpatient and try to help expedite patient's return home under hospice care as per his 's wishes. 86-year-old male with large abscess with cellulitis of his lateral chest wall, s /p surgical I+D with cultures growing MRSA. Appears to be responding to IV antibiotics, hopefully can transition to oral treatment, likely of Bactrim, Will follow.
[2017-09-25 00:16] VITALS: BP 176/68; PULSE 75; TEMP 36.4; O2SAT 95
[2017-09-25] MEDS: LORAZEPAM INJ 1 MG in SYRINGE 0.5 ML IV PRN ×2 (04:25→19:37)
[2017-09-25] MEDS: LEVOTHYROXINE 100 MCG TAB PO SCH (06:29)
[2017-09-25] MEDS: VANCOMYCIN IV 1,000 MG in SODIUM CHLORIDE 0.9% 250ML 250 ML IV SCH ×2 (06:33→17:23)
[2017-09-25 07:17] VITALS: BP 158/86; PULSE 81; TEMP 37.1; O2SAT 93
[2017-09-25] MEDS: DOCUSATE SODIUM 100 MG CAP PO SCH ×2 (07:24→19:45)
[2017-09-25] MEDS: DIVALPROEX SODIUM SPRINKLE 125 MG CAP PO SCH ×3 (08:28→19:47)
[2017-09-25] MEDS: POTASSIUM CHLORIDE 10 MEQ TABCR PO SCH (08:29)
[2017-09-25] MEDS: CARBIDOPA/LEVODOPA 25/100MG TAB PO SCH ×3 (08:30→19:47)
[2017-09-25] MEDS: HEPARIN SOD 5000 UNIT/0.5 ML CARP SQ SCH ×2 (08:32→20:48)
[2017-09-25] MEDS: NYSTATIN SUSP 500,000 U/5 ML UDC PO SCH ×4 (09:39→19:48)
[2017-09-25] MEDS: MoRPHine SULFATE 4 MG/ML 1 ML CARP\\VIAL IV PRN ×3 (09:49→23:18)
[2017-09-25] MEDS: LORAZEPAM 2 MG/ML 1 ML VIAL IV PRN (12:25)
--- NOTE | 2017-09-25 13:01 | Hospitalist Progress Note ---
Hospitalist Progress Note Date of Service September 25, 2017. (Faviola Moreno ., TIFF) Subjective Pt evaluation today including: conversation w/ patient, physical exam, chart review, lab review, review of inpatient medication list Voiding: no voiding problems Mr. Medina is sleeping, disoriented when awoken, unable to give ROS (Faviola Moreno ., ITFF) Medications Medications Administered Medications (Trade) Dose Ordered Sig/Jannet Route Start Time Stop Time Status Last Admin Dose Admin Vancomycin HCl 1000 mg/Sodium Chloride 270 ml @ 125 mls/hr ONE STAT IV 09/18/17 18:12 09/18/17 20:21 DC 09/18/17 18:45 125 MLS/HR Divalproex Sodium (Depakote Sprinkle Cap) 125 mg TID PO 09/19/17 08:00 10/19/17 08:59 09/25/17 08:28 125 MG Docusate Sodium (coLACE CAP) 100 mg BID PO 09/19/17 08:00 10/19/17 08:59 09/24/17 20:21 100 MG Levothyroxine Sodium (Synthroid Tab) 100 mcg DAILYBB PO 09/19/17 06:30 10/19/17 06:29 09/25/17 06:29 100 MCG Potassium Chloride (Klor-Con M10) 10 meq DAILY PO 09/19/17 08:00 10/19/17 08:59 09/25/17 08:29 10 MEQ Quetiapine Fumarate (seroQUEL TAB) 250 mg HS PO 09/19/17 21:00 10/19/17 20:59 09/24/17 20:20 250 MG Trazodone HCl (Desyrel Tab) 150 mg HS PO 09/19/17 21:00 10/19/17 20:59 09/24/17 20:21 150 MG Trazodone HCl (Desyrel Tab) 150 mg 2219 ONCE PO 09/18/17 22:19 09/19/17 00:31 DC 09/19/17 00:48 150 MG Morphine Sulfate (MoRPHine SULFATE INJ) 2 mg Q2H PRN IV 09/18/17 22:30 18 22:29 09/25/17 09:49 2 MG Quetiapine Fumarate (seroQUEL TAB) 250 mg 2219 ONCE PO 09/18/17 22:19 09/19/17 00:31 DC 09/19/17 00:49 250 MG Acetaminophen (Tylenol Tab) 650 mg Q4H PRN PO 09/18/17 23:00 10/18/17 22:59 09/19/17 08:26 650 MG Polyethylene (Miralax Powder Packet) 17 gm DAILY PRN PO 09/18/17 23:00 10/18/17 22:59 09/22/17 09:00 17 GM Sodium Chloride 1,000 ml @ 75 mls/hr [id number] IV 09/19/17 01:00 10/19/17 00:59 09/24/17 22:11 75 MLS/HR Vancomycin HCl 1000 mg/Sodium Chloride 270 ml @ 125 mls/hr Q15H IV 09/19/17 08:00 09/20/17 08:22 DC 09/19/17 22:36 125 MLS/HR Piperacillin Sod/ Tazobactam Sod 3.375 gm/Dextrose 115 ml @ 230 mls/hr NOW ONCE IV 09/19/17 00:45 09/19/17 01:14 DC 09/19/17 00:53 230 MLS/HR Piperacillin Sod/ Tazobactam Sod 3.375 gm/Dextrose 115 ml @ 28.75 mls/ hr Q8H IV 09/19/17 06:00 09/21/17 11:59 DC 09/21/17 06:42 28.75 MLS/HR Carbidopa/Levodopa (Sinemet 25/ 100MG Tab) 1 tab TID PO 09/19/17 08:00 10/19/17 07:59 09/25/17 08:30 1 TAB Heparin Sodium (Porcine) (Heparin Sq 5000 Unit/0.5ml) 5,000 unit Q12 SQ 09/19/17 09:00 10/19/17 08:59 09/25/17 08:32 5,000 UNIT Nystatin (Mycostatin Susp) 5 ml QID PO 09/19/17 17:00 09/29/17 16:59 09/25/17 09:39 5 ML Fentanyl Citrate (Fentanyl Inj) 25 mcg Q5M PRN IV 09/19/17 14:30 09/19/17 19:30 DC 09/19/17 15:20 25 MCG Vancomycin HCl 1000 mg/Sodium Chloride 270 ml @ 125 mls/hr Q12H IV 09/20/17 10:00 09/21/17 13:30 DC 09/21/17 11:15 125 MLS/HR Vancomycin HCl 1000 mg/Sodium Chloride 270 ml @ 125 mls/hr Q10H IV 09/21/17 23:00 10/01/17 22:59 09/25/17 06:33 125 MLS/HR Haloperidol Lactate (Haldol Inj) 2.5 mg ONE ONCE IM 09/21/17 22:00 09/21/17 22:04 DC 09/21/17 22:05 2.5 MG Olanzapine (Zyprexa Zydis Od Tab) 5 mg ONE ONCE PO 09/22/17 11:00 09/22/17 11:02 DC 09/22/17 11:04 5 MG Lorazepam (Ativan Inj) 1 mg Q4H PRN IV 09/22/17 11:00 10/22/17 10:59 09/25/17 12:25 1 MG Haloperidol Lactate (Haldol Inj) 1 mg Q1H PRN IM 09/22/17 11:00 10/22/17 10:59 09/22/17 19:57 1 MG Sodium Chloride ([place] Nasal [place]) 225 sprays STK-MED ONCE .ROUTE 09/22/17 11:34 09/22/17 11:35 DC 09/22/17 11:38 225 SPRAYS Lorazepam 1 mg/ Syringe 1 ml @ 1 mls/min Q4H PRN IV 09/22/17 19:00 10/22/17 18:59 09/25/17 04:25 1 MLS/MIN Lorazepam (Ativan Tab) 1 mg Q4H PRN PO 09/24/17 14:00 10/24/17 13:59 09/24/17 13:59 1 MG (Faviola Moreno, TIFF) Objective Vital Signs Date Time Temp Pulse Resp B/P (MAP) Pulse Ox O2 Delivery O2 Flow Rate FiO2 09/25/17 08:00 Room Air 09/25/17 07:17 37.1 81 20 158/86 (110) 93 Room Air 09/25/17 00:16 36.4 75 20 176/68 (104) 95 Room Air 09/25/17 00:00 Room Air 09/24/17 20:20 Room Air 09/24/17 19:55 78 112/73 (86) 09/24/17 16:00 95 Room Air 09/24/17 15:07 36.4 73 22 167/72 (103) 96 (Faviola Moreno CRNP) Physical Exam Notes: General: no distress Eyes: normal inspection, PERLL Respiratory: chest non tender, clear to auscultation, normal breath sounds, no respiratory distress, no accessory muscle use Cardiac: regular rate and rhythm, no rub or gallop, no murmur, no edema, no jvd GI/: active bowel sounds, no abd pain or tenderness, soft, non distended Extremities: normal range of motion, normal strength, non tender Neuro/Psych: alert and oriented x 3, normal mood and affect Skin: normal color, dry (Faviola Moreno CRNP) Assessment and Plan 86 yo M w/ pMHx of Parkinson with dementia, HTN, hypothyroidism, DM, on home hospice care, developed a rapidly expansive left posterior rib cage wound, this wound was a rapidly progressive abscess and not a matter of any neglect Back abscess with cellulitis - Culture obtained showed MRSA , wound total area is quite large, measuring 18.5 cm x 9 cm. - General surgery I&D - Dr. Monk 09/19 - Consulted wound care - they feel that wound vac is necessary for healing and to prevent worsening/sepsis and recommend leaving wound vac for a few days before transitioning to a dressing more appropriate for going home on hospice - Consulted palliative care - IV vancomycin, stopped Zosyn - Pain: IV morphine 2mg q2h - ID consulted - transition to Bactrim for home Oral Candidiasis - Nystatin QID ordered Parkinson's with dementia, agitation - Continue: carbidopa-levodopa, divalproex, quetiapine, trazodone, has improved after medications restarted - Speech eval recommends pureed diet - prn lorazepam for agitation Hypothyroidism - continue levothyroxine DVT ppx: subq heparin Code: DNR Dispo: home with hospice when ready for dc - SNF unable to accept due to behaviors, OOA checking that is equipped to take care of patient. would like patient to return home rather than exploring SNF. (Faviola Moreno CRNP) Supervising Note Dr. Saborio I performed a history and physical examination on the patient. I reviewed above note and agree with it. I discussed plan with APC and patient. During my face to face encounter with the patient, I answered all of the patient's questions. Will continue patient on wound vac. Patient will likely be discharged on Saturday. (Walter Lange M.D.)
--- NOTE | 2017-09-25 15:44 | Infectious Disease Progress Nt ---
Progress Note Date of Service September 25, 2017. Subjective Pt evaluation today including: physical exam, chart review, lab review, review of studies, conversation w/ market consultant, review of inpatient medication list Patient remains non communicative. No obvious problems overnight. Remains afebrile. All Other Systems: Reviewed and Negative Medications Current Inpatient Medications Medications (Trade) Dose Ordered Sig/Jannet Route Start Time Stop Time Status Last Admin Dose Admin Divalproex Sodium (Depakote Sprinkle Cap) 125 mg TID PO 09/19/17 08:00 10/19/17 08:59 09/25/17 14:30 125 MG Docusate Sodium (coLACE CAP) 100 mg BID PO 09/19/17 08:00 10/19/17 08:59 09/24/17 20:21 100 MG Levothyroxine Sodium (Synthroid Tab) 100 mcg DAILYBB PO 09/19/17 06:30 10/19/17 06:29 09/25/17 06:29 100 MCG Potassium Chloride (Klor-Con M10) 10 meq DAILY PO 09/19/17 08:00 10/19/17 08:59 09/25/17 08:29 10 MEQ Quetiapine Fumarate (seroQUEL TAB) 250 mg HS PO 09/19/17 21:00 10/19/17 20:59 09/24/17 20:20 250 MG Trazodone HCl (Desyrel Tab) 150 mg HS PO 09/19/17 21:00 10/19/17 20:59 09/24/17 20:21 150 MG Morphine Sulfate (MoRPHine SULFATE INJ) 2 mg Q2H PRN IV 09/18/17 22:30 10/02/17 22:29 09/25/17 14:36 2 MG Acetaminophen (Tylenol Tab) 650 mg Q4H PRN PO 09/18/17 23:00 10/18/17 22:59 09/19/17 08:26 650 MG Al Hydrox/Mg Hydrox/Simethicone (Maalox Max Susp) 15 ml Q4H PRN PO 09/18/17 23:00 10/18/17 22:59 Polyethylene (Miralax Powder Packet) 17 gm DAILY PRN PO 09/18/17 23:00 10/18/17 22:59 09/22/17 09:00 17 GM Ondansetron HCl (Zofran Inj) 4 mg Q6H PRN IV 09/18/17 23:00 10/18/17 22:59 Sodium Chloride 1,000 ml @ 75 mls/hr [id number] IV 09/19/17 01:00 10/19/17 00:59 09/24/17 22:11 75 MLS/HR Miscellaneous Information (Consult) 1 ea UD PRN N/A 09/18/17 23:00 10/18/17 22:59 Carbidopa/Levodopa (Sinemet 25/ 100MG Tab) 1 tab TID PO 09/19/17 08:00 10/19/17 07:59 09/25/17 14:31 1 TAB Heparin Sodium (Porcine) (Heparin Sq 5000 Unit/0.5ml) 5,000 unit Q12 SQ 09/19/17 09:00 10/19/17 08:59 09/25/17 08:32 5,000 UNIT Nystatin (Mycostatin Susp) 5 ml QID PO 09/19/17 17:00 09/29/17 16:59 09/25/17 09:39 5 ML Vancomycin HCl 1000 mg/Sodium Chloride 270 ml @ 125 mls/hr Q10H IV 09/21/17 23:00 10/01/17 22:59 09/25/17 06:33 125 MLS/HR Magnesium Hydroxide (Milk Of Magnesia Susp) 30 ml Q6H PRN PO 09/22/17 11:00 10/22/17 10:59 Lorazepam (Ativan Inj) 1 mg Q4H PRN IV 09/22/17 11:00 10/22/17 10:59 09/25/17 12:25 1 MG Haloperidol Lactate (Haldol Inj) 1 mg Q1H PRN IM 09/22/17 11:00 10/22/17 10:59 09/22/17 19:57 1 MG Sodium Chloride ([place] Nasal [place]) 1 sprays PRN PRN NA 09/22/17 12:00 10/22/17 11:59 Lorazepam 1 mg/ Syringe 1 ml @ 1 mls/min Q4H PRN IV 09/22/17 19:00 10/22/17 18:59 09/25/17 04:25 1 MLS/MIN Lorazepam (Ativan Tab) 1 mg Q4H PRN PO 09/24/17 14:00 10/24/17 13:59 09/24/17 13:59 1 MG Objective Vital Signs Date Time Temp Pulse Resp B/P (MAP) Pulse Ox O2 Delivery O2 Flow Rate FiO2 09/25/17 08:00 Room Air 09/25/17 07:17 37.1 81 20 158/86 (110) 93 Room Air 09/25/17 00:16 36.4 75 20 176/68 (104) 95 Room Air 09/25/17 00:00 Room Air 09/24/17 20:20 Room Air 09/24/17 19:55 78 112/73 (86) 09/24/17 16:00 95 Room Air Physical Exam General Appearance: WD/WN, no apparent distress Eyes: normal inspection, EOMI, sclerae normal ENT: normal ENT inspection, pharynx normal Neck: supple, no adenopathy, thyroid normal, trachea midline Respiratory/Chest: chest non-tender, lungs clear, normal breath sounds, no respiratory distress Cardiovascular: regular rate, rhythm, no gallop, no murmur Abdomen: normal bowel sounds, non tender, soft, no organomegaly Extremities: non-tender, no calf tenderness Neurologic/Psychiatric: alert, + disoriented Skin: normal color, no rash, + pertinent finding (Wound VAC in place) Lymphatic: no adenopathy Assessment and Plan (1) Insomnia Status: Chronic Patient on Seroquel 250 mg nightly, trazodone nightly and Depakote 125 mg 3 times daily. Appears to be improving (2) Wound abscess Status: Acute Patient with wound/abscess, MRSA positivestatus post I&D and debridement on . Wound VAC in place with scant drainage. Would hope to simplify wound care so patient can return home as per his 's wishes. (3) Palliative care encounter We will continue to follow patient inpatient and try to help expedite patient's return home under hospice care as per his 's wishes. 86-year-old male with large abscess with cellulitis of his lateral chest wall, s /p surgical I+D with cultures growing MRSA. Appears to be responding to IV antibiotics, to continue with transition to Bactrim upon discharge.
[2017-09-25 16:02] VITALS: BP 180/80; PULSE 72; TEMP 36.3; O2SAT 96
[2017-09-25] MEDS: SODIUM CHLORIDE 0.9% 1000ML 1,000 ML IV SCH (19:36)
[2017-09-25] MEDS: TRAZODONE HCL 100 MG TAB PO SCH (20:39)
[2017-09-25] MEDS: QUETIAPINE FUMARATE 100 MG TAB PO SCH (20:40)
[2017-09-26 00:20] VITALS: BP 180/72; PULSE 83; TEMP 36.2; O2SAT 93
[2017-09-26] MEDS: VANCOMYCIN IV 1,000 MG in SODIUM CHLORIDE 0.9% 250ML 250 ML IV SCH ×3 (02:38→23:32)
[2017-09-26] MEDS: LORAZEPAM INJ 1 MG in SYRINGE 0.5 ML IV PRN ×4 (02:38→18:52)
[2017-09-26] MEDS: MoRPHine SULFATE 4 MG/ML 1 ML CARP\\VIAL IV PRN ×3 (05:55→23:32)
[2017-09-26] MEDS: LEVOTHYROXINE 100 MCG TAB PO SCH (05:56)
[2017-09-26] MEDS: SODIUM CHLORIDE 0.9% 1000ML 1,000 ML IV SCH ×2 (07:32→21:18)
[2017-09-26] MEDS: DOCUSATE SODIUM 100 MG CAP PO SCH ×2 (07:32→20:38)
[2017-09-26] MEDS: CARBIDOPA/LEVODOPA 25/100MG TAB PO SCH ×3 (07:32→20:39)
[2017-09-26] MEDS: DIVALPROEX SODIUM SPRINKLE 125 MG CAP PO SCH ×3 (07:32→20:38)
[2017-09-26] MEDS: POTASSIUM CHLORIDE 10 MEQ TABCR PO SCH (07:33)
[2017-09-26] MEDS: NYSTATIN SUSP 500,000 U/5 ML UDC PO SCH ×4 (07:33→20:39)
[2017-09-26] MEDS: HEPARIN SOD 5000 UNIT/0.5 ML CARP SQ SCH ×2 (07:34→20:41)
[2017-09-26 08:00] VITALS: O2SAT 93
[2017-09-26 08:18] VITALS: BP 173/78; PULSE 81; TEMP 35.5; O2SAT 92
[2017-09-26 09:19] VITALS: O2SAT 93
[2017-09-26 09:46] LABS: CREATININE 0.49 mg/dl (0.60-1.40)
[2017-09-26] MEDS ORDERED: VANCOMYCIN TROUGH ONE (12:30)
--- NOTE | 2017-09-26 14:20 | Pharmacy Progress Note ---
Pharmacy Abx Dose Short Note Date of Service September 26, 2017. Assessment & Plan Item Value Date Time Vancomycin Level Trough 20.6 mcg/ml 09/26/17 1222 Assessment 86 year old male receiving IV Vancomycin for treatment of large abscess with cellulitis of lateral chest wall, s/p surgical I&D, cultures growing MRSA. Pt to be discharged tomorrow or Saturday on PO Bactrim per ID. Day # 9 of antimicrobial therapy. Plan Vancomycin * Trough level of 20.6 mcg/mL is therapeutic * Continue dose of 1000 mg IV every 10 hours for 1-2 days, until discharge and then discharge on Bactrim PO Pharmacy will continue to follow and will adjust dose/frequency as necessary. Thank you.
--- NOTE | 2017-09-26 15:08 | Hospitalist Progress Note ---
Hospitalist Progress Note Date of Service September 26, 2017. (Faviola Moreno ., TIFF) Subjective Pt evaluation today including: conversation w/ patient, physical exam, chart review, lab review, review of inpatient medication list Voiding: no voiding problems Mr. Medina is disoriented, rambling incoherently, unable to give ROS (Faviola Moreno ., TIFF) Medications Medications Administered Medications (Trade) Dose Ordered Sig/Jannet Route Start Time Stop Time Status Last Admin Dose Admin Vancomycin HCl 1000 mg/Sodium Chloride 270 ml @ 125 mls/hr ONE STAT IV 09/18/17 18:12 09/18/17 20:21 DC 09/18/17 18:45 125 MLS/HR Divalproex Sodium (Depakote Sprinkle Cap) 125 mg TID PO 09/19/17 08:00 10/19/17 08:59 09/26/17 13:05 125 MG Docusate Sodium (coLACE CAP) 100 mg BID PO 09/19/17 08:00 10/19/17 08:59 09/26/17 07:32 100 MG Levothyroxine Sodium (Synthroid Tab) 100 mcg DAILYBB PO 09/19/17 06:30 10/19/17 06:29 09/26/17 05:56 100 MCG Potassium Chloride (Klor-Con M10) 10 meq DAILY PO 09/19/17 08:00 10/19/17 08:59 09/26/17 07:33 10 MEQ Quetiapine Fumarate (seroQUEL TAB) 250 mg HS PO 09/19/17 21:00 10/19/17 20:59 09/25/17 20:40 250 MG Trazodone HCl (Desyrel Tab) 150 mg HS PO 09/19/17 21:00 10/19/17 20:59 09/25/17 20:39 150 MG Trazodone HCl (Desyrel Tab) 150 mg 2219 ONCE PO 09/18/17 22:19 09/19/17 00:31 DC 09/19/17 00:48 150 MG Morphine Sulfate (MoRPHine SULFATE INJ) 2 mg Q2H PRN IV 09/18/17 22:30 10/02/17 22:29 09/26/17 05:55 2 MG Quetiapine Fumarate (seroQUEL TAB) 250 mg 2219 ONCE PO 09/18/17 22:19 09/19/17 00:31 DC 09/19/17 00:49 250 MG Acetaminophen (Tylenol Tab) 650 mg Q4H PRN PO 09/18/17 23:00 10/18/17 22:59 09/19/17 08:26 650 MG Polyethylene (Miralax Powder Packet) 17 gm DAILY PRN PO 09/18/17 23:00 10/18/17 22:59 09/22/17 09:00 17 GM Sodium Chloride 1,000 ml @ 75 mls/hr [id number] IV 09/19/17 01:00 10/19/17 00:59 09/26/17 07:32 75 MLS/HR Vancomycin HCl 1000 mg/Sodium Chloride 270 ml @ 125 mls/hr Q15H IV 09/19/17 08:00 09/20/17 08:22 DC 09/19/17 22:36 125 MLS/HR Piperacillin Sod/ Tazobactam Sod 3.375 gm/Dextrose 115 ml @ 230 mls/hr NOW ONCE IV 09/19/17 00:45 09/19/17 01:14 DC 09/19/17 00:53 230 MLS/HR Piperacillin Sod/ Tazobactam Sod 3.375 gm/Dextrose 115 ml @ 28.75 mls/ hr Q8H IV 09/19/17 06:00 09/21/17 11:59 DC 09/21/17 06:42 28.75 MLS/HR Carbidopa/Levodopa (Sinemet 25/ 100MG Tab) 1 tab TID PO 09/19/17 08:00 10/19/17 07:59 09/26/17 13:05 1 TAB Heparin Sodium (Porcine) (Heparin Sq 5000 Unit/0.5ml) 5,000 unit Q12 SQ 09/19/17 09:00 10/19/17 08:59 09/26/17 07:34 5,000 UNIT Nystatin (Mycostatin Susp) 5 ml QID PO 09/19/17 17:00 09/29/17 16:59 09/26/17 07:33 5 ML Fentanyl Citrate (Fentanyl Inj) 25 mcg Q5M PRN IV 09/19/17 14:30 09/19/17 19:30 DC 09/19/17 15:20 25 MCG Vancomycin HCl 1000 mg/Sodium Chloride 270 ml @ 125 mls/hr Q12H IV 09/20/17 10:00 09/21/17 13:30 DC 09/21/17 11:15 125 MLS/HR Vancomycin HCl 1000 mg/Sodium Chloride 270 ml @ 125 mls/hr Q10H IV 09/21/17 23:00 10/01/17 22:59 09/26/17 13:05 125 MLS/HR Haloperidol Lactate (Haldol Inj) 2.5 mg ONE ONCE IM 09/21/17 22:00 09/21/17 22:04 DC 09/21/17 22:05 2.5 MG Olanzapine (Zyprexa Zydis Od Tab) 5 mg ONE ONCE PO 09/22/17 11:00 09/22/17 11:02 DC 09/22/17 11:04 5 MG Lorazepam (Ativan Inj) 1 mg Q4H PRN IV 09/22/17 11:00 10/22/17 10:59 09/25/17 12:25 1 MG Haloperidol Lactate (Haldol Inj) 1 mg Q1H PRN IM 09/22/17 11:00 10/22/17 10:59 09/22/17 19:57 1 MG Sodium Chloride ([place] Nasal [place]) 225 sprays STK-MED ONCE .ROUTE 09/22/17 11:34 09/22/17 11:35 DC 09/22/17 11:38 225 SPRAYS Lorazepam 1 mg/ Syringe 1 ml @ 1 mls/min Q4H PRN IV 09/22/17 19:00 10/22/17 18:59 09/26/17 13:35 1 MLS/MIN Lorazepam (Ativan Tab) 1 mg Q4H PRN PO 09/24/17 14:00 10/24/17 13:59 09/24/17 13:59 1 MG (Faviola Moreno CRNP) Objective Vital Signs Date Time Temp Pulse Resp B/P (MAP) Pulse Ox O2 Delivery O2 Flow Rate FiO2 09/26/17 08:18 35.5 81 16 173/78 (109) 92 Room Air 09/26/17 08:00 93 Room Air 09/26/17 00:20 36.2 83 20 180/72 (108) 93 Room Air 09/26/17 00:10 Room Air 09/25/17 16:02 36.3 72 20 180/80 (113) 96 Room Air 09/25/17 16:00 Room Air (Faviola Moreno CRNP) Physical Exam Notes: General: no distress Eyes: normal inspection, PERLL Respiratory: chest non tender, clear to auscultation, normal breath sounds, no respiratory distress, no accessory muscle use Cardiac: regular rate and rhythm, no rub or gallop, no murmur, no edema, no jvd GI/: active bowel sounds, no abd pain or tenderness, soft, non distended Extremities: normal range of motion, normal strength, non tender Neuro/Psych: eyes closed, disoriented, mildly agitated Skin: normal color, dry (Faviola Moreno CRNP) Laboratory Results Last 24 Hours Test 09/26/17 07:14 09/26/17 12:22 Creatinine 0.49 mg/dl Est Creatinine Clear Calc Drug Dose 111.7 ml/min Estimated GFR () 114.7 Estimated GFR (Non- 98.9 Vancomycin Level Trough 20.6 mcg/ml (Faviola Moreno CRNP) Assessment and Plan 86 yo M w/ pMHx of Parkinson with dementia, HTN, hypothyroidism, DM, on home hospice care, developed a rapidly expansive left posterior rib cage wound, this wound was a rapidly progressive abscess and not a matter of any neglect Back abscess with cellulitis - Culture obtained showed MRSA , wound total area is quite large, measuring 18.5 cm x 9 cm. - General surgery I&D - Dr. Monk 09/19 - Consulted wound care - they feel that wound vac is necessary for healing and to prevent worsening/sepsis and recommend leaving wound vac for a few days before transitioning to a dressing more appropriate for going home on hospice - discussed with Temitope Alston today - we will transition to Aquacel dressing and remove wound vac tomorrow and discharge to home following - Consulted palliative care - IV vancomycin, stopped Zosyn - Pain: IV morphine 2mg q2h - ID consulted - transition to Bactrim for home Oral Candidiasis - Nystatin QID ordered Parkinson's with dementia, agitation - Continue: carbidopa-levodopa, divalproex, quetiapine, trazodone, has improved after medications restarted - Speech eval recommends pureed diet - prn lorazepam for agitation Hypothyroidism - continue levothyroxine DVT ppx: subq heparin Code: DNR Dispo: home with hospice when ready for dc - SNF unable to accept due to behaviors, OOA feels patient is safe to return home. would like patient to return home rather than exploring SNF. (Faviola Moreno, TIFF) Supervising Note Dr. Lange I performed a history and physical examination on the patient. I reviewed above note and agree with it. I discussed plan with APC and patient. During my face to face encounter with the patient, I answered all of the patient's questions. Will continue wound vac for 1 more day. Wound is healing. (Walter Lange M.D.)
[2017-09-26 16:02] VITALS: O2SAT 92
[2017-09-26] MEDS: HALOPERIDOL LACTATE 5 MG/ML 1 ML VIAL IM PRN (16:05)
[2017-09-26 16:11] VITALS: BP 171/85; PULSE 75; TEMP 36.4; O2SAT 96
--- NOTE | 2017-09-26 20:24 | Infectious Disease Progress Nt ---
Progress Note Date of Service September 26, 2017. Subjective Pt evaluation today including: physical exam, chart review, lab review, review of studies, conversation w/ workday consultant, review of inpatient medication list Patient remains unable to provide adequate history. Appears unchanged. Remains afebrile. All Other Systems: Reviewed and Negative Medications Current Inpatient Medications Medications (Trade) Dose Ordered Sig/Jannet Route Start Time Stop Time Status Last Admin Dose Admin Divalproex Sodium (Depakote Sprinkle Cap) 125 mg TID PO 09/19/17 08:00 10/19/17 08:59 09/26/17 13:05 125 MG Docusate Sodium (coLACE CAP) 100 mg BID PO 09/19/17 08:00 10/19/17 08:59 09/26/17 07:32 100 MG Levothyroxine Sodium (Synthroid Tab) 100 mcg DAILYBB PO 09/19/17 06:30 10/19/17 06:29 09/26/17 05:56 100 MCG Potassium Chloride (Klor-Con M10) 10 meq DAILY PO 09/19/17 08:00 10/19/17 08:59 09/26/17 07:33 10 MEQ Quetiapine Fumarate (seroQUEL TAB) 250 mg HS PO 09/19/17 21:00 10/19/17 20:59 09/25/17 20:40 250 MG Trazodone HCl (Desyrel Tab) 150 mg HS PO 09/19/17 21:00 10/19/17 20:59 09/25/17 20:39 150 MG Morphine Sulfate (MoRPHine SULFATE INJ) 2 mg Q2H PRN IV 09/18/17 22:30 10/02/17 22:29 09/26/17 05:55 2 MG Acetaminophen (Tylenol Tab) 650 mg Q4H PRN PO 09/18/17 23:00 10/18/17 22:59 09/19/17 08:26 650 MG Al Hydrox/Mg Hydrox/Simethicone (Maalox Max Susp) 15 ml Q4H PRN PO 09/18/17 23:00 10/18/17 22:59 Polyethylene (Miralax Powder Packet) 17 gm DAILY PRN PO 09/18/17 23:00 10/18/17 22:59 09/22/17 09:00 17 GM Ondansetron HCl (Zofran Inj) 4 mg Q6H PRN IV 09/18/17 23:00 10/18/17 22:59 Sodium Chloride 1,000 ml @ 75 mls/hr [id number] IV 09/19/17 01:00 10/19/17 00:59 09/26/17 07:32 75 MLS/HR Miscellaneous Information (Consult) 1 ea UD PRN N/A 09/18/17 23:00 10/18/17 22:59 Carbidopa/Levodopa (Sinemet 25/ 100MG Tab) 1 tab TID PO 09/19/17 08:00 10/19/17 07:59 09/26/17 13:05 1 TAB Heparin Sodium (Porcine) (Heparin Sq 5000 Unit/0.5ml) 5,000 unit Q12 SQ 09/19/17 09:00 10/19/17 08:59 09/26/17 07:34 5,000 UNIT Nystatin (Mycostatin Susp) 5 ml QID PO 09/19/17 17:00 09/29/17 16:59 09/26/17 16:05 5 ML Vancomycin HCl 1000 mg/Sodium Chloride 270 ml @ 125 mls/hr Q10H IV 09/21/17 23:00 10/01/17 22:59 09/26/17 13:05 125 MLS/HR Magnesium Hydroxide (Milk Of Magnesia Susp) 30 ml Q6H PRN PO 09/22/17 11:00 10/22/17 10:59 Lorazepam (Ativan Inj) 1 mg Q4H PRN IV 09/22/17 11:00 10/22/17 10:59 09/25/17 12:25 1 MG Haloperidol Lactate (Haldol Inj) 1 mg Q1H PRN IM 09/22/17 11:00 10/22/17 10:59 09/26/17 16:05 1 MG Sodium Chloride ([place] Nasal [place]) 1 sprays PRN PRN NA 09/22/17 12:00 10/22/17 11:59 Lorazepam 1 mg/ Syringe 1 ml @ 1 mls/min Q4H PRN IV 09/22/17 19:00 10/22/17 18:59 09/26/17 18:52 1 MLS/MIN Lorazepam (Ativan Tab) 1 mg Q4H PRN PO 09/24/17 14:00 10/24/17 13:59 09/24/17 13:59 1 MG Objective Vital Signs Date Time Temp Pulse Resp B/P (MAP) Pulse Ox O2 Delivery O2 Flow Rate FiO2 09/26/17 16:11 36.4 75 22 171/85 (113) 96 Room Air 09/26/17 16:02 92 Room Air 09/26/17 08:18 35.5 81 16 173/78 (109) 92 Room Air 09/26/17 08:00 93 Room Air 09/26/17 00:20 36.2 83 20 180/72 (108) 93 Room Air 09/26/17 00:10 Room Air Physical Exam General Appearance: no apparent distress, + pertinent finding (Chronically ill- appearing) Eyes: normal inspection, sclerae normal ENT: normal ENT inspection, pharynx normal Neck: supple, no adenopathy, trachea midline Respiratory/Chest: chest non-tender, lungs clear, normal breath sounds, no respiratory distress Cardiovascular: regular rate, rhythm, no gallop, no murmur Abdomen: normal bowel sounds, non tender, soft, no organomegaly Extremities: non-tender, no calf tenderness Neurologic/Psychiatric: alert, + disoriented Skin: normal color, no rash, + pertinent finding (Wound VAC in place) Lymphatic: no adenopathy Laboratory Results Last 24 Hours Test 09/26/17 07:14 09/26/17 12:22 Creatinine 0.49 mg/dl Est Creatinine Clear Calc Drug Dose 111.7 ml/min Estimated GFR () 114.7 Estimated GFR (Non- 98.9 Vancomycin Level Trough 20.6 mcg/ml Assessment and Plan (1) Insomnia Status: Chronic Patient on Seroquel 250 mg nightly, trazodone nightly and Depakote 125 mg 3 times daily. Appears to be improving (2) Wound abscess Status: Acute Patient with wound/abscess, MRSA positivestatus post I&D and debridement on . Wound VAC in place with scant drainage. Would hope to simplify wound care so patient can return home as per his 's wishes. (3) Palliative care encounter We will continue to follow patient inpatient and try to help expedite patient's return home under hospice care as per his 's wishes. 86-year-old male with large abscess with cellulitis of his lateral chest wall, s /p surgical I+D with cultures growing MRSA. Appears to be responding to IV antibiotics, to continue with transition to Bactrim upon discharge.
[2017-09-26] MEDS: QUETIAPINE FUMARATE 100 MG TAB PO SCH (20:37)
[2017-09-26] MEDS: TRAZODONE HCL 100 MG TAB PO SCH (20:39)
[2017-09-27 00:03] VITALS: BP 149/70; PULSE 88; TEMP 36.1; O2SAT 93
[2017-09-27] MEDS: MoRPHine SULFATE 4 MG/ML 1 ML CARP\\VIAL IV PRN ×4 (03:10→13:19)
[2017-09-27] MEDS: LEVOTHYROXINE 100 MCG TAB PO SCH (06:14)
[2017-09-27] MEDS: LORAZEPAM 2 MG/ML 1 ML VIAL IV PRN ×2 (08:49→13:17)
[2017-09-27] MEDS: DIVALPROEX SODIUM SPRINKLE 125 MG CAP PO SCH ×2 (08:53→13:04)
[2017-09-27] MEDS: DOCUSATE SODIUM 100 MG CAP PO SCH (08:53)
[2017-09-27] MEDS: CARBIDOPA/LEVODOPA 25/100MG TAB PO SCH ×2 (08:54→13:05)
[2017-09-27] MEDS: POTASSIUM CHLORIDE 10 MEQ TABCR PO SCH (08:55)
[2017-09-27] MEDS: NYSTATIN SUSP 500,000 U/5 ML UDC PO SCH ×2 (08:55→12:42)
[2017-09-27] MEDS: SODIUM CHLORIDE 0.9% 1000ML 1,000 ML IV SCH (09:08)
[2017-09-27] MEDS: VANCOMYCIN IV 1,000 MG in SODIUM CHLORIDE 0.9% 250ML 250 ML IV SCH (09:08)
[2017-09-27] MEDS: HEPARIN SOD 5000 UNIT/0.5 ML CARP SQ SCH (09:09)
[2017-09-27] MEDS ORDERED: CARB25TA2 PO (10:11)
[2017-09-27] MEDS ORDERED: SULF800T23 PO (10:11)
[2017-09-27] MEDS ORDERED: ATV1 PO (10:11)
--- NOTE | 2017-09-27 10:15 | Discharge Instructions ---
Discharge Instructions Date of Service September 27, 2017. Admission Reason for Admission: Abscess, Cellulitis Discharge Discharge Diagnosis / Problem: abscess, cellulitis Discharge Goals Goal(s): Decrease discomfort Activity Recommendations Activity Limitations: resume your previous activity . Instructions / Follow-Up Instructions / Follow-Up Patient's wound is to be dressed with Aquacel AG, changed QOD. Patient should take Bactrim BID until wound heals, I have provided a prescription for 2 months worth. He can stop taking it if wound has resolve. If he looks like he'll need a longer regimen, please contact wound center. Current Hospital Diet Patient's current hospital diet: Regular Diet Discharge Diet Recommended Diet: Regular Diet Procedures Procedures Performed: debridment and excision 10cmx6 cm multiple sinustract abscess and packing Pending Studies Studies pending at discharge: no Medical Emergencies . Who to Call and When: Medical Emergencies: If at any time you feel your situation is an emergency, please call 911 immediately. . Non-Emergent Contact Non-Emergency issues call your: Primary Care Provider Call Non-Emergent contact if: you have any medication questions . . "Provider Documentation" section prepared by Faviola Moreno. .
--- NOTE | 2017-09-27 10:45 | Discharge Summary ---
Discharge Summary Date of Service September 27, 2017. Discharge Summary Admission Date: September 18, 2017 at 23:04 Discharge Date: September 27, 2017 Discharge Disposition: Home with services Principal Diagnosis: MRSA cellulitis Problems/Secondary Diagnoses: Parkinson with dementia, HTN, hypothyroidism, DM, on home hospice care Immunizations: Have You Had Influenza Vaccine: Unknown History of Tetanus Vaccine?: Unknown History of Pneumococcal: Unknown History of Hepatitis B Vaccine: Unknown Procedures: CHEST ONE VIEW PORTABLE HISTORY: 86 years-old Male Evaluate Fever/Sepsis acute fever with sepsis COMPARISON: Chest radiograph 10/27/2011 TECHNIQUE: Portable AP view of the chest FINDINGS: Patient is rotated to the right. Cardiac silhouette is enlarged. Pulmonary vascular congestion with interstitial coarsening. Moderate right hemidiaphragmatic elevation with subsegmental right basilar opacities. Trace pleural effusions with fluid tracking along the minor fissure. No pneumothorax. Degenerative changes of the shoulders and spine. Remote appearing left-sided rib fractures. IMPRESSION: 1. Cardiomegaly with mild pulmonary edema and trace bilateral pleural effusions. 2. Moderate right hemidiaphragmatic elevation with subsegmental right basilar opacities favoring atelectasis. Superimposed pneumonia would be difficult to exclude. Electronically signed by: Talat Walker M.D. 09/18/2017 7:30 PM Consultations: Dr. Giron from ID Dr. Segovia from wound care Medication Reconciliation New Medications: Sulfa/Trimethoprim (Bactrim Ds 800MG/160MG) Tab 1 TAB PO BID for 60 Days, #120 TAB this medication should be taken until wound heals and then can be discontinued Carbidopa-Levodopa (Sinemet) 1 Tab Tab 1 TAB PO TID for 30 Days, #90 TAB 2 Refills Lorazepam (Lorazepam) 1 Mg Tab 1 MG PO Q4H PRN for Anxiety for 3 Days, #12 TAB Continued Medications: Divalproex Sodium (Divalproex Sodium) 125 Mg Cap 125 MG PO TID Docusate Sodium (Stool Softener) 100 Mg Cap 100 MG PO BID Furosemide (Lasix) 20 Mg Tab 20 MG PO DAILY, TAB PATIENTS MED LIST STATES THAT THIS MEDICATION IS ON HOLD WHILE PT IS ON BACTRIM. PT STARTED THE BACTRIM 09/18/17. Levothyroxine Sodium (Synthroid) 100 Mcg Tab 100 MCG PO QAM, TAB Mirtazapine (Mirtazapine) 7.5 Mg Tab 7.5 MG PO QPM Potassium Ext Rel (Klor-Con) 20 Meq Tabcr 10 MEQ PO DAILY, TAB PATIENTS MED LIST STATES THAT THIS MEDICATION IS ON HOLD WHILE PT IS ON BACTRIM. PT STARTED THE BACTRIM 09/18/17. Quetiapine Fumarate (Seroquel) 100 Mg Tab 250 MG PO HS, TAB Trazodone HCl (Trazodone HCl) 150 Mg Tab 150 MG PO HS Discontinued Medications: Sulfamethoxazole-Trimethoprim (Bactrim 400MG/80MG) Unknown Strength Tab 1 TAB PO BID, TAB Discharge Exam ROS Constitutional: no chills, aches, sweats or fever Respiratory: no sob,cough, sputum, or wheezing Cardiac: no chest pain, palpitations, edema, orthopnea or lightheadedness GI: no abdominal pain, nausea, vomiting, diarrhea or constipation : no dysuria or hesitancy Extremities: no joint pain or weakness Skin: no rash All other systems reviewed and negative PE General: no distress Eyes: normal inspection, PERLL Respiratory: chest non tender, clear to auscultation, normal breath sounds, no respiratory distress, no accessory muscle use Cardiac: regular rate and rhythm, no rub or gallop, no murmur, + 3 edema LE, no jvd GI/: active bowel sounds, no abd pain or tenderness, soft, non distended Extremities: normal range of motion, normal strength, non tender Neuro/Psych: sleeping, disoriented Hospital Course .cos 86 yo M w/ pMHx of Parkinson with dementia, HTN, hypothyroidism, DM, on home hospice care, developed a rapidly expansive left posterior rib cage wound, this wound was a rapidly progressive abscess and not a matter of any neglect Back abscess with cellulitis - Culture obtained showed MRSA , wound total area is quite large, measuring 18.5 cm x 9 cm. - General surgery I&D - Dr. Monk 09/19 - Consulted wound care - they feel that wound vac is necessary for healing and to prevent worsening/sepsis and recommend leaving wound vac for a few days before transitioning to a dressing more appropriate for going home on hospice - discussed with Temitope Alston today - we will transition to Aquacel dressing and remove wound vac tomorrow and discharge to home following - Consulted palliative care - IV vancomycin - Bactrim for home - Pain: IV morphine 2mg q2h - ID consulted - transition to Bactrim for home Oral Candidiasis - Nystatin QID ordered Parkinson's with dementia, agitation - Continue: carbidopa-levodopa, divalproex, quetiapine, trazodone, has improved after medications restarted - Speech eval recommends pureed diet - prn lorazepam for agitation Hypothyroidism - continue levothyroxine Patient will return home with hospice. Supervising Note Dr. Lange I performed a history and physical examination on the patient. I reviewed above note and agree with it. I discussed plan with APC and patient. During my face to face encounter with the patient, I answered all of the patient's questions. Patient is now off wound vac. will transition to aquacel dressing. Wound has improved. WIll be discharged on home hospice Total Time Spent: Greater than 30 minutes This includes examination of the patient, discharge planning, medication reconciliation, and communication with other providers. Discharge Instructions Please refer to the electronic Patient Visit Report (Discharge Instructions) for additional information. Additional Copies To Sravan Deng PA-C
[2017-09-27 12:55] VITALS: BP 149/70; PULSE 88; TEMP 36.1; O2SAT 93
--- NOTE | 2017-09-27 14:04 | Infectious Disease Progress Nt ---
Progress Note Date of Service September 27, 2017. Subjective Pt evaluation today including: physical exam, chart review, lab review, review of studies, conversation w/ advanced manufacturing consultant, review of inpatient medication list Appeared unchanged. Still with some agitation. No fever. All Other Systems: Reviewed and Negative Medications Current Inpatient Medications Medications (Trade) Dose Ordered Sig/Jannet Route Start Time Stop Time Status Last Admin Dose Admin Divalproex Sodium (Depakote Sprinkle Cap) 125 mg TID PO 09/19/17 08:00 10/19/17 08:59 09/27/17 13:04 125 MG Docusate Sodium (coLACE CAP) 100 mg BID PO 09/19/17 08:00 10/19/17 08:59 09/27/17 08:53 100 MG Levothyroxine Sodium (Synthroid Tab) 100 mcg DAILYBB PO 09/19/17 06:30 10/19/17 06:29 09/27/17 06:14 100 MCG Potassium Chloride (Klor-Con M10) 10 meq DAILY PO 09/19/17 08:00 10/19/17 08:59 09/27/17 08:55 10 MEQ Quetiapine Fumarate (seroQUEL TAB) 250 mg HS PO 09/19/17 21:00 10/19/17 20:59 09/26/17 20:37 250 MG Trazodone HCl (Desyrel Tab) 150 mg HS PO 09/19/17 21:00 10/19/17 20:59 09/26/17 20:39 150 MG Morphine Sulfate (MoRPHine SULFATE INJ) 2 mg Q2H PRN IV 09/18/17 22:30 10/02/17 22:29 09/27/17 13:19 2 MG Acetaminophen (Tylenol Tab) 650 mg Q4H PRN PO 09/18/17 23:00 10/18/17 22:59 09/19/17 08:26 650 MG Al Hydrox/Mg Hydrox/Simethicone (Maalox Max Susp) 15 ml Q4H PRN PO 09/18/17 23:00 10/18/17 22:59 Polyethylene (Miralax Powder Packet) 17 gm DAILY PRN PO 09/18/17 23:00 10/18/17 22:59 09/22/17 09:00 17 GM Ondansetron HCl (Zofran Inj) 4 mg Q6H PRN IV 09/18/17 23:00 10/18/17 22:59 Sodium Chloride 1,000 ml @ 75 mls/hr [id number] IV 09/19/17 01:00 10/19/17 00:59 09/27/17 09:08 75 MLS/HR Miscellaneous Information (Consult) 1 ea UD PRN N/A 09/18/17 23:00 10/18/17 22:59 Carbidopa/Levodopa (Sinemet 25/ 100MG Tab) 1 tab TID PO 09/19/17 08:00 10/19/17 07:59 09/27/17 13:05 1 TAB Heparin Sodium (Porcine) (Heparin Sq 5000 Unit/0.5ml) 5,000 unit Q12 SQ 09/19/17 09:00 10/19/17 08:59 09/27/17 09:09 5,000 UNIT Nystatin (Mycostatin Susp) 5 ml QID PO 09/19/17 17:00 09/29/17 16:59 09/27/17 12:42 5 ML Vancomycin HCl 1000 mg/Sodium Chloride 270 ml @ 125 mls/hr Q10H IV 09/21/17 23:00 10/01/17 22:59 09/27/17 09:08 125 MLS/HR Magnesium Hydroxide (Milk Of Magnesia Susp) 30 ml Q6H PRN PO 09/22/17 11:00 10/22/17 10:59 Lorazepam (Ativan Inj) 1 mg Q4H PRN IV 09/22/17 11:00 10/22/17 10:59 09/27/17 13:17 1 MG Haloperidol Lactate (Haldol Inj) 1 mg Q1H PRN IM 09/22/17 11:00 10/22/17 10:59 09/26/17 16:05 1 MG Sodium Chloride ([place] Nasal [place]) 1 sprays PRN PRN NA 09/22/17 12:00 10/22/17 11:59 Lorazepam 1 mg/ Syringe 1 ml @ 1 mls/min Q4H PRN IV 09/22/17 19:00 10/22/17 18:59 09/26/17 18:52 1 MLS/MIN Lorazepam (Ativan Tab) 1 mg Q4H PRN PO 09/24/17 14:00 10/24/17 13:59 5/22/18 13:59 1 MG Objective Vital Signs Date Time Temp Pulse Resp B/P (MAP) Pulse Ox O2 Delivery O2 Flow Rate FiO2 09/27/17 12:55 36.1 88 20 93 Room Air 09/27/17 08:00 Room Air 09/27/17 00:15 Room Air 09/27/17 00:03 36.1 88 20 149/70 (96) 93 Room Air 09/26/17 20:10 Room Air 09/26/17 16:11 36.4 75 22 171/85 (113) 96 Room Air 09/26/17 16:02 92 Room Air Physical Exam General Appearance: WD/WN, no apparent distress Eyes: normal inspection, sclerae normal ENT: normal ENT inspection, pharynx normal Neck: supple, no adenopathy, trachea midline Respiratory/Chest: lungs clear, normal breath sounds, no respiratory distress Cardiovascular: regular rate, rhythm, no gallop, no JVD, no murmur Abdomen: normal bowel sounds, non tender, soft, no organomegaly Extremities: non-tender, no calf tenderness Neurologic/Psychiatric: alert, + disoriented Skin: normal color, no rash, + pertinent finding (Wound VAC in place) Lymphatic: no adenopathy Assessment and Plan (1) Insomnia Status: Chronic Patient on Seroquel 250 mg nightly, trazodone nightly and Depakote 125 mg 3 times daily. Appears to be improving (2) Wound abscess Status: Acute Patient with wound/abscess, MRSA positivestatus post I&D and debridement on . Wound VAC in place with scant drainage. Would hope to simplify wound care so patient can return home as per his 's wishes. (3) Palliative care encounter We will continue to follow patient inpatient and try to help expedite patient's return home under hospice care as per his 's wishes. 86-year-old male with large abscess with cellulitis of his lateral chest wall, s /p surgical I+D with cultures growing MRSA. Appears to be responding to antibiotics, to continue Bactrim, likely prolonged Rx. Will follow up at [facility].
== END 2017-09-27 14:35 | disposition hospice, home (50) | DRG 574 ==
LOC: EDBD 18:04 → C.EDB 18:04 → UNDOADMIN 23:04 → C.4E 23:04 → ENRESERV 23:21
PROVIDERS: ADMIT Hospitalist; ATTEND Internal Medicine Sports Medicine
PROC: 0J973ZZ Drainage of Back Subcutaneous Tissue and Fascia, Percutaneous Approach (ICD-10-PCS; principal; 2017-09-18)
PROC: 0WBK0ZZ Excision of Upper Back, Open Approach (ICD-10-PCS; 2017-09-19)
DX: L02.212 Cutaneous abscess of back [any part, except buttock and flank] (principal); N39.0 Urinary tract infection, site not specified; B37.0 Candidal stomatitis; G31.83 Neurocognitive disorder with Lewy bodies; F02.81 Dementia in other diseases classified elsewhere, unspecified severity, with behavioral disturbance; L03.312 Cellulitis of back [any part except buttock and flank]; I10 Essential (primary) hypertension; E11.9 Type 2 diabetes mellitus without complications; E03.9 Hypothyroidism, unspecified; B95.62 Methicillin resistant Staphylococcus aureus infection as the cause of diseases classified elsewhere; Z51.5 Encounter for palliative care; Z66 Do not resuscitate; Z79.899 Other long term (current) drug therapy; Z88.6 Allergy status to analgesic agent